=== PATIENT | female | born 1935 | race Caucasian/White ===

== ENCOUNTER 2017-08-05 07:54 | Outpatient (CLI) | payer MEDICARE | END 2017-08-05 07:55 | disposition short-term general hospital (02) | LOC: EMS 07:54 | PROVIDERS: ATTEND Surgery | DX: S01.01XA Laceration without foreign body of scalp, initial encounter (principal); W18.39XA Other fall on same level, initial encounter; Y92.009 Unspecified place in unspecified non-institutional (private) residence as the place of occurrence of the external cause | CPT/HCPCS: A0425; A0429 ==

== ENCOUNTER 2019-02-17 12:41 | Outpatient (CLI) | payer MEDICARE | END 2019-02-17 12:42 | disposition short-term general hospital (02) | LOC: EMS 12:41 | PROVIDERS: ATTEND Surgery | DX: Z04.89 Encounter for examination and observation for other specified reasons (principal); W19.XXXA Unspecified fall, initial encounter; Y92.009 Unspecified place in unspecified non-institutional (private) residence as the place of occurrence of the external cause | CPT/HCPCS: A0425; A0429 ==

== ENCOUNTER 2019-04-11 09:56 | Outpatient (CLI) | payer MEDICARE, MEDICAID ==
--- NOTE | 2019-04-11 15:04 | XRAY Report ---
Reason: FOOT PAIN AND BRUSING/CRUSHING INJURY Procedure Date: 04/11/2019 Accession Number: [id number] / [id number] Procedure: XR - Foot 3 View LT CPT Code: Final Report FULL RESULT: EXAM: LEFT FOOT RADIOGRAPHY EXAM DATE: 04/11/2019 10:34 AM. CLINICAL HISTORY: Persistent left foot pain and bruising after a crush injury 2 weeks prior to this examination. COMPARISON: None. TECHNIQUE: 3 views. FINDINGS: Bones: Decreased bone mineralization. No fractures or bone lesions. Joints: Normal. No subluxations. Soft Tissues: Mild dorsal left forefoot soft tissue swelling. IMPRESSION: 1. Mild dorsal left forefoot soft tissue swelling. 2. Decreased bone mineralization. 3. No fracture or subluxation. RADIA
== END 2019-04-11 09:57 | disposition home or self-care (01) ==
LOC: DI 09:56
PROVIDERS: ATTEND Physician Assistant Medical
DX: M79.672 Pain in left foot (principal)

== ENCOUNTER 2019-04-22 10:34 | Outpatient (CLI) | payer MEDICARE, MEDICAID | END 2019-04-22 10:35 | disposition short-term general hospital (02) | LOC: EMS 10:34 | PROVIDERS: ATTEND Surgery | DX: R11.10 Vomiting, unspecified (principal); W19.XXXA Unspecified fall, initial encounter; Z91.81 History of falling; Y92.009 Unspecified place in unspecified non-institutional (private) residence as the place of occurrence of the external cause | CPT/HCPCS: A0425; A0429; A0888 ==

== ENCOUNTER 2019-09-23 15:37 | Inpatient (IN) | payer MEDICARE, MEDICAID ==
[2019-09-23] MEDS ORDERED: SODIUM CHLORIDE 0.9% 500 ML IV STA (15:50)
--- NOTE | 2019-09-23 15:59 | ED Physician Documentation ---
History of Present Illness - Stated complaint Stated Complaint: FAILURE TO THRIVE - Chief complaint Chief Complaint: General - History obtained from History obtained from: Patient, EMS - Additonal information Additional information: 84-year-old woman with history of atrial fibrillation and dementia presents from a memory care facility with "failure to thrive". Had some sort of surgery last year, she does not know the details. She had a G-tube placed, it is unclear why. The G-tube was removed 10 days ago, she is not sure why. Since then she has not been eating or drinking well. She was admitted to [facility], unclear what happened there, will try to get records. Subsequently now reportedly has not been eating or drinking for 3 days. She complains of nausea when she eats. She says she is still having bowel movements and still urinating. She denies pain. She admits to a cough. Noted to have a temperature of 100.1 for EMS prior to arrival. 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: section HEENT: Tonsil/Adenoidectomy - Present Medications Home Medications: Ambulatory Orders Medication Instructions Recorded Confirmed Alendronate Sodium 70 mg PO ONCE 06/05/19 06/05/19 Calcium Carbonate/Vitamin D3 1 tab PO DAILY 06/05/19 06/05/19 [Calcium 500-Vit D3 200 Tablet] Cranberry Fruit Extract [Cranberry] 1 cap PO DAILY 06/05/19 09/23/19 Docusate Sodium 1 cap PO DAILY 06/05/19 09/23/19 Ferrous Gluconate 324 mg PO DAILY 06/05/19 06/05/19 Flaxseed Oil 1 cap PO DAILY 06/05/19 09/23/19 Furosemide [Lasix] 1 tab PO DAILY PRN 06/05/19 09/23/19 Latanoprost 0.005% Ophth Drops 1 drops RIGHTEYE QPM 06/05/19 06/05/19 [Xalatan Ophth Drops] Lovastatin 40 mg PO DAILY 06/05/19 06/05/19 Metoprolol Tartrate 25 mg PO BID 06/05/19 09/23/19 Multivitamin [Multivitamins] 1 cap PO DAILY 06/05/19 09/23/19 Niacin 1 cap PO DAILY 06/05/19 06/05/19 [place]-3S/Dha/Epa/Fish Oil [Fish 1 cap PO DAILY 06/05/19 09/23/19 Oil 1,200 mg Softgel] Oxycodone HCl 5 mg PO Q4HR PRN 06/05/19 06/05/19 Psyllium Husk [Fiber] 500 mg PO BID 06/05/19 09/23/19 Quetiapine Fumarate 1 tab PO DAILY 06/05/19 09/23/19 Sertraline HCl 200 mg PO DAILY 06/05/19 09/23/19 Acetaminophen [Tylenol] 650 mg PO Q6HR PRN 09/23/19 09/23/19 Aspirin [Aspirin EC] 81 mg PO DAILY 09/23/19 09/23/19 Omeprazole 20 mg PO DAILY 09/23/19 09/23/19 Ondansetron HCl [Zofran] 4 mg PO Q6HR PRN 09/23/19 09/23/19 - Allergies Allergies/Adverse Reactions: Allergies Allergy/AdvReac Type Severity Reaction Status Date / Time No Known Drug Allergies Allergy Verified 09/23/19 15:43 - Social History Does the pt smoke?: No Smoking Status: Never smoker Does the pt drink ETOH?: Yes Does the pt have substance abuse?: No - Immunizations Immunizations are current?: Yes PD ED PE NORMAL - Vitals Vital signs reviewed: Yes - General General: Other (She is alert and oriented to person and place, not time or events.) - HEENT HEENT: PERRL, EOMI - Neck Neck: Supple, no meningeal sign, No bony TTP - Cardiac Cardiac: Other (Rapid and irregular without murmur) - Respiratory Respiratory: No respiratory distress, Other (Diminished at the left base and rhonchi at the right base) - Abdomen Abdomen: Normal bowel sounds, Soft, Other (Healed over G-tube and laparotomy sca rs without tenderness.) - Back Back: No CVA TTP, No spinal TTP - Derm Derm: Normal color, Warm and dry - Extremities Extremities: No edema, No calf tenderness / cord - Neuro 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 2-12 intact Eye Opening: Spontaneous Motor: Obeys Commands Verbal: Confused GCS Score: 14 Results - Vitals Vitals: Vital Signs - 24 hr 09/23/19 09/23/19 09/23/19 15:43 16:00 16:30 Temperature 37.3 C Heart Rate 120 H 125 H 118 H Respiratory 20 21 19 Rate Blood Pressure 114/89 H 118/82 H 115/70 O2 Saturation 97 98 98 09/23/19 09/23/19 09/23/19 17:00 17:15 19:19 Temperature Heart Rate 120 H 84 112 H Respiratory 22 20 18 Rate Blood Pressure 96/62 135/83 H O2 Saturation 92 97 96 09/23/19 19:52 Temperature Heart Rate 89 Respiratory 20 Rate Blood Pressure 100/62 O2 Saturation 96 Oxygen O2 Source Room air - EKG (time done) 1556 Rate: Rate (enter#) (125) Rhythm: Atrial fibrillation (w PVC) [place]: Normal QRS: Low voltage Ischemia: Non specific changes Computer interpretation: Agree with computer - Labs Labs: Laboratory Tests 09/23/19 09/23/19 09/23/19 16:09 16:09 16:09 WBC 40.3 H* RBC 2.92 L Hgb 7.9 L Hct 26.1 L MCV 89.4 MCH 27.1 MCHC 30.3 L RDW 16.1 H Plt Count 233 MPV 10.1 Neut # (Auto) 9.4 H Lymph # (Auto) 30.2 H [place] # (Auto) 0.4 Eos # (Auto) 0.0 Baso # (Auto) 0.0 Absolute Nucleated RBC 0.00 Band Neuts % (Manual) Not Reportable Abnorm Lymph % (Manual) Not Reportable Nucleated RBC % 0.0 Neutrophils # (Manual) Not Reportable Lymphocytes # (Manual) Not Reportable Monocytes # (Manual) Not Reportable Eosinophils # (Manual) Not Reportable Basophils # (Manual) Not Reportable Differential Comment MANUAL=AUTO DIFF Manual Slide Review Indicated WBC Morphology 1+ SMUDGE CELLS Platelet Estimate NORMAL (130-450,000) Platelet Morphology NORMAL APPEARANCE RBC Morph Micro Appear 1+ BASO STIPPLING PT 17.3 H INR 1.6 H Sodium 140 Potassium 3.3 L Chloride 107 Carbon Dioxide 24 Anion Gap 9.0 BUN 19 Creatinine 0.5 Estimated GFR (MDRD) 117 Glucose 194 H Lactic Acid Calcium 7.7 L Phosphorus 3.3 Magnesium 1.8 Total Bilirubin 0.5 AST 18 ALT 13 Alkaline Phosphatase 58 Total Creatine Kinase 29 Troponin I High Sens B-Natriuretic Peptide Total Protein 5.1 L Albumin 2.8 L Globulin 2.3 Albumin/Globulin Ratio 1.2 Lipase 23 Urine Color Urine Clarity Urine pH Ur Specific [place] Urine Protein Urine Glucose (UA) Urine Ketones Urine Occult Blood Urine Nitrite Urine Bilirubin Urine Urobilinogen Ur Leukocyte Esterase Urine RBC Urine WBC Ur Squamous Epith Cells Urine Bacteria Ur Microscopic Review Urine Culture Comments 09/23/19 09/23/19 09/23/19 16:09 16:09 16:09 WBC RBC Hgb Hct MCV MCH MCHC RDW Plt Count MPV Neut # (Auto) Lymph # (Auto) [place] # (Auto) Eos # (Auto) Baso # (Auto) Absolute Nucleated RBC Band Neuts % (Manual) Abnorm Lymph % (Manual) Nucleated RBC % Neutrophils # (Manual) Lymphocytes # (Manual) Monocytes # (Manual) Eosinophils # (Manual) Basophils # (Manual) Differential Comment Manual Slide Review WBC Morphology Platelet Estimate Platelet Morphology RBC Morph Micro Appear PT INR Sodium Potassium Chloride Carbon Dioxide Anion Gap BUN Creatinine Estimated GFR (MDRD) Glucose Lactic Acid 1.5 Calcium Phosphorus Magnesium Total Bilirubin AST ALT Alkaline Phosphatase Total Creatine Kinase Troponin I High Sens 38.2 H* B-Natriuretic Peptide 503 H Total Protein Albumin Globulin Albumin/Globulin Ratio Lipase Urine Color Urine Clarity Urine pH Ur Specific [place] Urine Protein Urine Glucose (UA) Urine Ketones Urine Occult Blood Urine Nitrite Urine Bilirubin Urine Urobilinogen Ur Leukocyte Esterase Urine RBC Urine WBC Ur Squamous Epith Cells Urine Bacteria Ur Microscopic Review Urine Culture Comments 09/23/19 16:50 WBC RBC Hgb Hct MCV MCH MCHC RDW Plt Count MPV Neut # (Auto) Lymph # (Auto) [place] # (Auto) Eos # (Auto) Baso # (Auto) Absolute Nucleated RBC Band Neuts % (Manual) Abnorm Lymph % (Manual) Nucleated RBC % Neutrophils # (Manual) Lymphocytes # (Manual) Monocytes # (Manual) Eosinophils # (Manual) Basophils # (Manual) Differential Comment Manual Slide Review WBC Morphology Platelet Estimate Platelet Morphology RBC Morph Micro Appear PT INR Sodium Potassium Chloride Carbon Dioxide Anion Gap BUN Creatinine Estimated GFR (MDRD) Glucose Lactic Acid Calcium Phosphorus Magnesium Total Bilirubin AST ALT Alkaline Phosphatase Total Creatine Kinase Troponin I High Sens B-Natriuretic Peptide Total Protein Albumin Globulin Albumin/Globulin Ratio Lipase Urine Color YELLOW Urine Clarity HAZY Urine pH 6.0 Ur Specific [place] 1.025 Urine Protein NEGATIVE Urine Glucose (UA) NEGATIVE Urine Ketones 15 H Urine Occult Blood NEGATIVE Urine Nitrite NEGATIVE Urine Bilirubin NEGATIVE Urine Urobilinogen 1 (NORMAL) Ur Leukocyte Esterase NEGATIVE Urine RBC 0-5 Urine WBC 6-10 H Ur Squamous Epith Cells MANY Squamous H Urine Bacteria Many H Ur Microscopic Review INDICATED Urine Culture Comments NOT INDICATED - Rads (name of study) CT A/P Radiology: EMP read contemporaneously (Prominent stool especially in the rectum, cystic foci in the head of the pancreas up to 1.7 cm, consider further imaging, small bilateral pleural effusions with overlying atelectasis.) PD MEDICAL DECISION MAKING - ED course ED course: I left a voicemail for her daughter on both numbers that were available, they were not immediately returned. Discharge summary from [facility] dated 3 days ago, September 18 was reviewed. She was admitted on September 18 and discharged on the . She has a history of hypertension hyperlipidemia dementia hydrocephalus and CLL not currently under treatment, paroxysmal atrial fibrillation and gait disturbance. She presented to the ED because of a heart rate of 143. The surgery necessitating the G-tube was a paraesophageal hernia repair. She is lost 30 pounds in last 6 months. She was admitted to the ICU with rapid atrial fibrillation. She had a positive urine culture but was felt to be asymptomatic bacteriuria. Spoke with her daughter, She is available at [phone]. 84-year-old woman presents with persistent vomiting, about 8 weeks out from a paraesophageal hernia repair. Work-up here demonstrates A. fib with RVR and a fecal impaction. Attempts at disimpaction were made with several enemas in the department without significant success. A. fib was treated with divided doses of diltiazem with borderline rate control. Dr. Salazar will observe. Departure - Departure Disposition: ED Place in Observation Clinical Impression: Fecal impaction, Atrial fibrillation with RVR Vomiting Qualifiers: Vomiting type: unspecified Vomiting Intractability: intractable Nausea presence: with nausea Qualified Code(s): R11.2 - Nausea with vomiting, unspecified Condition: Fair
[2019-09-23] MEDS ORDERED: DILTIAZEM 50 MG/10 ML VIAL IVP STA (16:20)
[2019-09-23 16:23] LABS: BASOPHILS % (AUTO) 0.1 %; HGB - HEMOGLOBIN 7.9 g/dL (12.0-16.0); LYMPHOCYTES # (AUTO) 30.2 10^3/uL (1.5-3.5); LYMPHOCYTES % (AUTO) 74.8 %; MEAN CORPUSCULAR HEMOGLOBIN 27.1 pg (27.0-31.0); MEAN CORPUSCULAR HGB CONC 30.3 g/dL (32.0-36.0); MEAN CORPUSCULAR VOLUME 89.4 fL (81.0-99.0); MEAN PLATELET VOLUME 10.1 fL (7.9-10.8); MONOCYTES # (AUTO) 0.4 10^3/uL (0.0-1.0); NEUTROPHILS # (AUTO) 9.4 10^3/uL (1.5-6.6); NEUTROPHILS % (AUTO) 23.3 %; PLT - PLATELET COUNT 233 10^3/uL (130-450); RED BLOOD COUNT 2.92 10^6/uL (4.20-5.40); RED CELL DISTRIBUTION WIDTH 16.1 % (12.0-15.0)
--- NOTE | 2019-09-23 16:25 | XRAY Report ---
PROCEDURE: Chest 1 View X-Ray INDICATIONS: cough TECHNIQUE: One view of the chest was acquired. COMPARISON: 01/11/2015, 06/05/2013. Correlation is also made with chest CT 04/30/2013 FINDINGS: Surgical changes and devices: Thoracolumbar fixation hardware is seen. Lungs and pleura: No pleural effusions or pneumothorax. Lungs are clear. Mediastinum: The aorta is prominent and tortuous. The cardiac contours are within normal limits. Bones and chest wall: No suspicious bony lesions. Age-appropriate degenerative changes are seen. Overlying soft tissues appear unremarkable. IMPRESSION: No focal infiltrates are seen. Thoracolumbar fixation hardware. Reviewed by: Bin Arroyo MD on 09/23/2019 3:23 PM AKDT Approved by: Bin Arroyo MD on 09/23/2019 3:23 PM AKDT Station ID: [id number]
[2019-09-23 16:31] LABS: WHITE BLOOD COUNT 40.3 x10^3/uL (4.8-10.8)
[2019-09-23 16:32] LABS: INR 1.6 (0.8-1.2); PT - PROTHROMBIN TIME 17.3 secs (9.9-12.6)
[2019-09-23 16:36] LABS: ALBUMIN 2.8 g/dL (3.2-5.5); ALBUMIN/GLOBULIN RATIO 1.2 (1.0-2.2); BILIRUBIN,TOTAL 0.5 mg/dL (0.2-1.0); CALCIUM 7.7 mg/dL (8.5-10.3); CREATININE 0.5 mg/dL (0.4-1.0); MAGNESIUM 1.8 mg/dL (1.7-2.8); PHOSPHORUS 3.3 mg/dL (2.5-4.6); TOTAL PROTEIN 5.1 g/dL (6.7-8.2)
[2019-09-23 16:57] LABS: DIFFERENTIAL COMMENT MANUAL=AUTO DIFF; PLATELET ESTIMATE, MANUAL NORMAL (130-450,000) (NORMAL); PLATELET MORPHOLOGY NORMAL APPEARANCE (NORMAL)
[2019-09-23] MEDS ORDERED: ASPIRIN CHEW 81 MG TABLET PO STA (17:03)
[2019-09-23 17:05] LABS: BILIRUBIN,URINE NEGATIVE (NEGATIVE); GLUCOSE, URINE (UA) NEGATIVE (NEGATIVE); KETONES,URINE (UA) 15 mg/dL (NEGATIVE); LEUKOCYTE ESTERASE, URINE NEGATIVE (NEGATIVE); NITRITE,URINE NEGATIVE (NEGATIVE); OCCULT BLOOD,URINE NEGATIVE (NEGATIVE); PROTEIN,URINE NEGATIVE (NEGATIVE); UROBILINOGEN,URINE 1 (NORMAL) E.U./dL (NORMAL)
[2019-09-23 17:13] LABS: CLARITY,URINE HAZY (CLEAR)
[2019-09-23 17:14] LABS: BACTERIA,URINE Many /HPF (None Seen); RBC,URINE 0-5 /HPF (0-5); SQUAMOUS EPITHELIAL CELL,UR MANY Squamous (<= Few)
[2019-09-23] MEDS ORDERED: IOVERSOL 320 100 ML VIAL IVP ONE ×2 (17:17→17:37)
--- NOTE | 2019-09-23 17:46 | CT Report ---
PROCEDURE: Abdomen/Pelvis W INDICATIONS: IV only, vomiting, post op CONTRAST: IV CONTRAST: Optiray 320 ml: 100 PO CONTRAST: *NO PO CONTRAST TECHNIQUE: After the administration of oral and intravenous contrast, 5 mm thick sections acquired from the diap hragms to the symphysis. 5 mm thick coronal and sagittal reformats were acquired. For radiation dos e reduction, the following was used: automated exposure control, adjustment of mA and/or kV accordin g to patient size. COMPARISON: No prior CTs of the abdomen and pelvis are available for review at the time of this dict ation. FINDINGS: Image quality: Excellent. ABDOMEN: Lung bases: Small bilateral pleural effusions are seen. There is a large ventral hernia seen, which s tomach. Mild dependent atelectasis is seen. The heart size is within normal limits. Solid organs: Liver and spleen are normal. A low-density lesion is seen within the left liver, as o n series 3 image 15 measuring 1 cm. Gallbladder was not appear thickened. Biliary system is non dila carmen. Cystic foci are seen within the head of the pancreas that measure up to 1.7 cm, as on series 3 image 25. No adrenal nodules. Kidneys demonstrate normal size and enhancement, without hydronephrosis. Peritoneum and bowel: A prominent amount of stool seen within the distal colon, with the rectal wall measuring nearly 10 cm transversely. Bowel loops demonstrate normal wall thickness and caliber. No free fluid or air. Nodes and vessels: No retroperitoneal or mesenteric adenopathy by size criteria. Aorta and inferior vena cava are normal in size. Miscellaneous: No ventral hernias. PELVIS: Genitourinary: Bladder wall thickness is normal. Miscellaneous: No inguinal hernias or adenopathy. Bones: No suspicious bony lesions. Thoracotomy lumbar fixation hardware is partially seen. Numerous levels of chronic appearing anterior wedge deformity can be seen, without daja acute features. Dext roconvex lumbar sclerotic curvature is seen. IMPRESSION: There is a prominent amount of stool seen within the rectum. Early fecal impaction is cadena spected. Cystic foci can be seen of the head of the pancreas, which measure up to 1.7 cm. Differential diagnos is includes benign cysts and cystic neoplasm. If clinically appropriate, please consider further work up with a scheduled pancreas protocol CT or pancreas protocol MRI (assuming that there is no contrain dication). Small bilateral pleural effusions, with overlying atelectasis. Incidental note is made of: Large hiatal hernia 1 cm cyst or hemangioma seen within the left lobe of the liver. Numerous spinal compression deformities, without acute features Thoracolumbar fixation hardware Reviewed by: Bin Arroyo MD on 09/23/2019 4:45 PM AKDT Approved by: Bin Arroyo MD on 09/23/2019 4:45 PM AKDT Station ID: [id number]
[2019-09-23] MEDS ORDERED: DILTIAZEM 50 MG/10 ML VIAL IVP ONE (19:10)
[2019-09-23] MEDS ORDERED: ONDANSETRON 4 MG/2 ML VIAL IVP PRN (20:12)
--- NOTE | 2019-09-23 20:25 | HISTORY & PHYSICAL EXAMINATION ---
Chief Complaint - Chief Complaint Chief Complaint: dyspnea History of Present Illness - Admitted From Admitted From:: [facility] ED - History Obtained From Records Reviewed: yes History obtained from: ED physician and patient's daughter Exam Limitations: dementia - History of Present Illness HPI Comment/Other: Patient is an 84-year-old female with Past medical history including atrial fibrillation, CLL and dementia [facility] Her daughter was at bedside and help with some of the history. She reports that the staff at [facility] reported that the patient suddenly became pale, was coug amadeo and dyspneic. They were concerned that something was wrong with her heart and called EMS to bring her to the ED. In the ED she was found to be in atrial fibrillation with rapid ventricular rhythm and heart rate as high as 125.Work-up included a chest x-ray which was unremarkable except for thoracolumbar fixation hardware. A CT of the abdomen pelvis was also done which showed a prominent amou nt of stool within the rectum for which early fecal impaction was suspected. Patient's white blood cell count was also 40. She was given 10 mg of diltiazem IV twice which initially improved her heart rate to the 80s. However as time went by her heart rate steadily increased to the 110's. It mainly fluctuated between 100 and 130s. She also had several attempts at disimpaction and was finally administered an enema. As a result of the laboratory findings and her clinical presentation she was pre sented for admission for further treatment. Upon arrival to bedside the patient was resting comfortably. She is hard of hearing but denied any abdominal pain, dyspnea, chest pain. She was slightly n auseous. She has not eaten in days as a result of the nausea. The patient was just discharged from [facility] on September 21, 2019 for an episode of atrial fibrillation with RVR during Which she was admitted to the ICU on a diltiazem drip. 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 Social History Notes: Patient does not smoke. However she is a former smoker. She does not use alcohol or illicit drug products. She resides at [facility] - POLST Patient has POLST: No POLST Status: Limited Interventions (DNI) Meds/Allgy - Home Medications Home Medications: Ambulatory Orders Medication Instructions Recorded Confirmed Alendronate Sodium 70 mg PO ONCE 06/05/19 06/05/19 Calcium Carbonate/Vitamin D3 1 tab PO DAILY 06/05/19 06/05/19 [Calcium 500-Vit D3 200 Tablet] Cranberry Fruit Extract [Cranberry] 1 cap PO DAILY 06/05/19 09/23/19 Docusate Sodium 1 cap PO DAILY 06/05/19 09/23/19 Ferrous Gluconate 324 mg PO DAILY 06/05/19 06/05/19 Flaxseed Oil 1 cap PO DAILY 06/05/19 09/23/19 Furosemide [Lasix] 1 tab PO DAILY PRN 06/05/19 09/23/19 Latanoprost 0.005% Ophth Drops 1 drops RIGHTEYE QPM 06/05/19 06/05/19 [Xalatan Ophth Drops] Lovastatin 40 mg PO DAILY 06/05/19 06/05/19 Metoprolol Tartrate 25 mg PO BID 06/05/19 09/23/19 Multivitamin [Multivitamins] 1 cap PO DAILY 06/05/19 09/23/19 Niacin 1 cap PO DAILY 06/05/19 06/05/19 [place]-3S/Dha/Epa/Fish Oil [Fish 1 cap PO DAILY 06/05/19 09/23/19 Oil 1,200 mg Softgel] Oxycodone HCl 5 mg PO Q4HR PRN 06/05/19 06/05/19 Psyllium Husk [Fiber] 500 mg PO BID 06/05/19 09/23/19 Quetiapine Fumarate 1 tab PO DAILY 06/05/19 09/23/19 Sertraline HCl 200 mg PO DAILY 06/05/19 09/23/19 Acetaminophen [Tylenol] 650 mg PO Q6HR PRN 09/23/19 09/23/19 Aspirin [Aspirin EC] 81 mg PO DAILY 09/23/19 09/23/19 Omeprazole 20 mg PO DAILY 09/23/19 09/23/19 Ondansetron HCl [Zofran] 4 mg PO Q6HR PRN 09/23/19 09/23/19 - Allergies Allergies/Adverse Reactions: Allergies Allergy/AdvReac Type Severity Reaction Status Date / Time No Known Drug Allergies Allergy Verified 09/23/19 15:43 Review of Systems - Constitutional Constitutional: reports: Weakness, Poor appetite. denies: Fatigue, Fever - Eyes Eyes: denies: Pain - Ears, Nose & Throat Ears, Nose & Throat: reports: Hearing loss - Cardiovascular Cariovascular: reports: Irregular heart rate, Edema (right lower extremity greater than left). denies: Chest pain - Gastrointestinal Gastrointestinal: reports: Constipation, Nausea, Poor appetite. denies: Abdominal distention - Genitourinary Genitourinary: denies: Dysuria - Musculoskeletal Musculoskeletal: denies: Muscle pain, Back pain - Integumentary Integumentary: denies: Rash, Pruritis, Lesions - Neurological Neurological: reports: Memory problems. denies: Focal weakness - Psychiatric Psychiatric: denies: Depression, Anxiety - Endocrine Endocrine: denies: Polyuria, Polydypsia - Hematologic/Lymphatic Hematologic/Lymphatic: denies: Anemia, Bruising Prior Level of Functionality: Patient has been living at [facility] for the past 3 weeks. Exam - Vital Signs Vital Signs: Vital Signs x48h Temp Pulse Resp BP Pulse Ox 09/23/19 19:52 89 20 100/62 96 09/23/19 19:19 112 H 18 135/83 H 96 09/23/19 17:15 84 20 97 09/23/19 17:00 120 H 22 96/62 92 09/23/19 16:30 118 H 19 115/70 98 09/23/19 16:00 125 H 21 118/82 H 98 09/23/19 15:43 37.3 C 120 H 20 114/89 H 97 - Physical Exam General Appearance: positive: No acute distress, Alert Eyes Bilateral: positive: PERRL, EOMI ENT: positive: No signs of dehydration Neck: positive: No JVD, Trachea midline Respiratory: positive: Chest non-tender, No respiratory distress, Breath sounds nml. negative: Wheezes, Rales, Rhonchi Cardiovascular: positive: Irregularly irregular, Tachycardia Abdomen: positive: Non-tender, Nml bowel sounds, No distention. negative: Guarding, Rebound Back: positive: Nml inspection Skin: positive: Color nml, No rash, Warm, Dry Extremities: positive: Pedal edema (right> left. +1) Neurologic/Psychiatric: positive: Oriented x3, Mood/affect nml Conclusion/Plan - Problem List (1) Atrial fibrillation with RVR Conclusion/Plan: Patient was given diltiazem 10 mg IV twice in the ED. Heart rate initially improved to 86 but slowly increased to the 110s. She is fluctuating between 100 and 125. Diltiazem 30 mg immediate release every 6 hours p.o. has been ordered. Patient is also on metoprolol tartrate 25 mg p.o. twice daily. We will continue Patient is only on a baby aspirin daily. Reason for no oral anticoagulation is unknown at the moment. However this is likely due to the fact that the patient has some gait abnormalities. It is unclear if an echocardiogram was done at the most recent hospital stay in [facility]. Will attempt to get records from [facility] (2) Fecal impaction Conclusion/Plan: Status post attempts at disimpaction and enema. Some success was achieved. Patient reported a bowel movement in the ED. We will continue MiraLAX daily. (3) Hyperlipidemia Conclusion/Plan: Patient is on lovastatin at home. Will order the equivalent on formulary once medications verified by pharmacy. Patient also takes flaxseed oil and omega-3 fatty acids. (4) CLL (chronic lymphocytic leukemia) Conclusion/Plan: This was diagnosed 11 years ago. Patient had been seeing Dr. Medellin for oncology. No treatment had been done because the patient was stable. As a result of her stability she was actually discharged by [facility] WBC today was 40. (5) Hypertension Conclusion/Plan: Patient is on metoprolol and Lasix. (6) Osteoporosis Conclusion/Plan: Patient is on calcium carbonate 500 mg p.o. daily, and vitamin D3 She has been on alendronate in the past. - Lab Results Fish Bones: 09/23/19 16:09 09/23/19 16:09 Core Measures - Anticipated LOS I expect patient to be DC'd or transferred within 96 hours.: Yes - DVT/VTE - Prophylaxis VTE/DVT Device ordered at admit?: Yes VTE/DVT Prophylaxis med ordered at admit?: Yes
[2019-09-23] MEDS: SODIUM CHLORIDE 0.9% 1,000 ML IV SCH (21:52)
[2019-09-23] MEDS: SODIUM CHLORIDE FLUSH 0.9% 10 ML SYRINGE IVP PRN (21:52)
[2019-09-24] MEDS: METOPROLOL TARTRATE 25 MG TABLET PO SCH ×3 (00:11→21:24)
[2019-09-24] MEDS: polyethylene glycoL 3350 17 GM PACKET PO SCH ×2 (00:12→09:22)
[2019-09-24] MEDS: diltiaZEM 30 MG TABLET PO SCH ×4 (00:28→18:39)
[2019-09-24] MEDS ORDERED: DILTIAZEM 50 MG/10 ML VIAL IVP ONE (02:00)
[2019-09-24 05:45] LABS: BASOPHILS % (AUTO) 0.1 %; EOSINOPHILS % (AUTO) 0.1 %; HGB - HEMOGLOBIN 7.1 g/dL (12.0-16.0); LYMPHOCYTES % (AUTO) 75.4 %; MEAN CORPUSCULAR HEMOGLOBIN 26.6 pg (27.0-31.0); MEAN CORPUSCULAR VOLUME 88.8 fL (81.0-99.0); MONOCYTES # (AUTO) 0.4 10^3/uL (0.0-1.0); MONOCYTES % (AUTO) 1.1 %; NEUTROPHILS # (AUTO) 8.2 10^3/uL (1.5-6.6); NEUTROPHILS % (AUTO) 22.8 %; PLT - PLATELET COUNT 219 10^3/uL (130-450); RED BLOOD COUNT 2.67 10^6/uL (4.20-5.40)
[2019-09-24 05:47] LABS: WHITE BLOOD COUNT 35.7 x10^3/uL (4.8-10.8)
[2019-09-24 05:59] LABS: CREATININE 0.5 mg/dL (0.4-1.0)
[2019-09-24 06:04] LABS: CALCIUM 7.7 mg/dL (8.5-10.3)
[2019-09-24 06:08] LABS: PLATELET ESTIMATE, MANUAL NORMAL (130-450,000) (NORMAL); PLATELET MORPHOLOGY NORMAL APPEARANCE (NORMAL); RBC MORPHOLOGY (MULTIPLE) 2+ HYPOCHROMASIA (NORMAL)
[2019-09-24] MEDS: SODIUM CHLORIDE FLUSH 0.9% 10 ML SYRINGE IVP SCH ×2 (06:40→18:41)
[2019-09-24] MEDS: SODIUM CHLORIDE 0.9% 1,000 ML IV SCH ×3 (06:41→21:24)
[2019-09-24] MEDS: POTASSIUM CHLORIDE 20 MEQ/15 ML UDC PO SCH (09:21)
--- NOTE | 2019-09-24 14:36 | PROVIDER PROGRESS NOTE ---
Assessment/Plan - Problem List (1) Atrial fibrillation with RVR Assessment/Plan: The heart rate has improved to 80s to 90s on her p.o. Cardizem every 6 hours. We will switch to Cardizem CD. Presumably she is not on an anticoagulant because of her mild dementia and poor gait. We have a discharge summary from [facility], it does not address the exact reason for no anticoagulation. She is ruled out for an IN as the cause of the RVR. Plan is to get an echo unless we can have report of an echo from [facility]. We have put in a request to get that Echo. (2) SOB (shortness of breath) Assessment/Plan: Records from [facility] were requested, regarding her recent admission there, as to whether an Echo was done during that hospitalization, because she was there for A. fib with RVR. There was no description of an Echo in their discharge summary, which we do have. We have not been able to get an Echo result from [facility]. The patient will be admitted to full inpatient status under the 24-hour rule, since we have been unable to get her records regarding an Echo, and results of an Echo would alter her medical management. (3) Fecal impaction Assessment/Plan: Status post attempts at disimpaction and enema. Some success was achieved. Patient reported a bowel movement as she arrived to her hospital room last night. We will continue MiraLAX daily. (4) CLL (chronic lymphocytic leukemia) Assessment/Plan: This was diagnosed 11 years ago. Patient had been seeing Dr. Medellin for oncology. No treatment had been done because the patient was stable. As a result of her stability she was actually discharged by Dr. Medellin from oncologic care WBC today was 40>> 37. (5) Hyperlipidemia Assessment/Plan: Patient is on lovastatin at home. Will order the equivalent on formulary once medications verified by pharmacy. Patient also takes flaxseed oil and omega-3 fatty acids. (6) Hypertension Assessment/Plan: Patient is on metoprolol and Lasix. Continue these. (7) Osteoporosis Assessment/Plan: Patient is on calcium carbonate 500 mg p.o. daily, and vitamin D3. She has been on alendronate in the past. - Current Meds Current Meds: Current Medications Generic Name Dose Route Start Last Admin Trade Name Freq PRN Reason Stop Dose Admin Diltiazem HCl 30 mg 09/23/19 00:00 09/24/19 13:06 Cardizem PO 30 mg Q6HR AMANDO Administration Sodium Chloride 1,000 mls @ 125 mls/hr 09/23/19 21:00 09/24/19 13:00 Normal Saline 0.9% IV 125 mls/hr .Q8H AMANDO Administration Metoprolol Tartrate 25 mg 09/23/19 23:00 09/24/19 09:18 Lopressor PO 25 mg BID AMANDO Administration Polyethylene Glycol 17 gm 09/23/19 22:23 09/24/19 09:22 Miralax PO 17 gm DAILY AMANDO Administration Potassium Chloride 20 meq 09/24/19 08:00 09/24/19 09:21 PO 20 meq DAILYWM AMANDO Administration Sodium Chloride 10 ml 09/23/19 20:12 09/23/19 21:52 Normal Saline Flush 0.9% IVP 10 ml PRN PRN Administration NEEDED PER PROVIDER ORDERS Sodium Chloride 10 ml 09/24/19 01:00 09/24/19 06:40 Normal Saline Flush 0.9% IVP Not Given 0100,0900,1700 AMANDO - Lab Result Fish Bone Diagrams: 09/24/19 05:30 09/24/19 05:30 - Additional Planning My Orders: My Active Orders 09/24/19 12:00 COVID-19 REFERENCE TEST Routine 09/24/19 14:31 Admit [Admit \ Transfer \ Status] [RC] .ONCE Subjective - Subjective Patient Reports: Shortness of Breath Objective Vital Signs: Vital Signs - 24 hr 09/23/19 09/23/19 09/23/19 15:43 16:00 16:30 Temperature 37.3 C Heart Rate 120 H 125 H 118 H Heart Rate [ Monitoring electrodes] Respiratory 20 21 19 Rate Blood Pressure 114/89 H 118/82 H 115/70 Blood Pressure [Right Brachial artery] O2 Saturation 97 98 98 09/23/19 09/23/19 09/23/19 17:00 17:15 19:19 Temperature Heart Rate 120 H 84 112 H Heart Rate [ Monitoring electrodes] Respiratory 22 20 18 Rate Blood Pressure 96/62 135/83 H Blood Pressure [Right Brachial artery] O2 Saturation 92 97 96 09/23/19 09/23/19 09/23/19 19:52 21:08 21:09 Temperature Heart Rate 89 113 H 111 H Heart Rate [ Monitoring electrodes] Respiratory 20 18 17 Rate Blood Pressure 100/62 124/83 H 130/96 H Blood Pressure [Right Brachial artery] O2 Saturation 96 97 98 09/23/19 09/23/19 09/24/19 21:45 23:30 00:00 Temperature 37.1 C 37.1 C 36.6 C Heart Rate 92 Heart Rate [ 92 120 H Monitoring electrodes] Respiratory 18 18 18 Rate Blood Pressure Blood Pressure 137/78 H 141/82 H [Right Brachial artery] O2 Saturation 96 96 100 09/24/19 09/24/19 09/24/19 00:11 00:28 02:50 Temperature Heart Rate Heart Rate [ 92 Monitoring electrodes] Respiratory Rate Blood Pressure 141/82 H 141/82 H Blood Pressure [Right Brachial artery] O2 Saturation 09/24/19 09/24/19 09/24/19 05:00 06:37 09:18 Temperature 37.3 C Heart Rate Heart Rate [ 89 Monitoring electrodes] Respiratory 18 Rate Blood Pressure 134/71 H 117/58 L Blood Pressure 137/75 H [Right Brachial artery] O2 Saturation 97 09/24/19 09/24/19 10:00 13:06 Temperature 36.8 C Heart Rate Heart Rate [ 88 Monitoring electrodes] Respiratory 19 Rate Blood Pressure 137/75 H Blood Pressure 129/78 [Right Brachial artery] O2 Saturation 100 Oxygen O2 Source Room air I&O (Last 24 Hrs): Intake and Output Totals x24h 09/22/19 09/23/19 09/24/19 23:59 23:59 23:59 Intake Total 500 2149.583 Output Total 175 Balance 500 1974.583 General: Alert HEENT: EOMI, Mucous membr. moist/pink Neck: Supple, No JVD Neuro: Alert, Other (Confused.) Cardiovascular: Other (Irreg) Respiratory: Rales Abdomen: Soft Extremities: No edema - Results Results: Laboratory Results WBC 35.7 x10^3/uL (4.8-10.8) H* 09/24/19 05:30 RBC 2.67 10^6/uL (4.20-5.40) L 09/24/19 05:30 Hgb 7.1 g/dL (12.0-16.0) L 09/24/19 05:30 Hct 23.7 % (37.0-47.0) L 09/24/19 05:30 MCV 88.8 fL (81.0-99.0) 09/24/19 05:30 MCH 26.6 pg (27.0-31.0) L 09/24/19 05:30 MCHC 30.0 g/dL (32.0-36.0) L 09/24/19 05:30 RDW 16.0 % (12.0-15.0) H 09/24/19 05:30 Plt Count 219 10^3/uL (130-450) 09/24/19 05:30 MPV 10.0 fL (7.9-10.8) 09/24/19 05:30 Neut # (Auto) 8.2 10^3/uL (1.5-6.6) H 09/24/19 05:30 Lymph # (Auto) 27.0 10^3/uL (1.5-3.5) H 09/24/19 05:30 [place] # (Auto) 0.4 10^3/uL (0.0-1.0) 09/24/19 05:30 Eos # (Auto) 0.0 10^3/uL (0.0-0.7) 09/24/19 05:30 Baso # (Auto) 0.0 10^3/uL (0.0-0.1) 09/24/19 05:30 Absolute Nucleated RBC 0.00 x10^3/uL 09/24/19 05:30 Band Neuts % (Manual) Not Reportable 09/23/19 16:09 Abnorm Lymph % (Manual) Not Reportable 09/23/19 16:09 Nucleated RBC % 0.0 /100WBC 09/24/19 05:30 Neutrophils # (Manual) Not Reportable 09/23/19 16:09 Lymphocytes # (Manual) Not Reportable 09/23/19 16:09 Monocytes # (Manual) Not Reportable 09/23/19 16:09 Eosinophils # (Manual) Not Reportable 09/23/19 16:09 Basophils # (Manual) Not Reportable 09/23/19 16:09 Differential Comment MANUAL=AUTO DIFF 09/23/19 16:09 Manual Slide Review Indicated 09/24/19 05:30 WBC Morphology 1+ SMUDGE CELLS (NORMAL) 09/23/19 16:09 Platelet Estimate NORMAL (130-450,000) (NORMAL) 09/24/19 05:30 Platelet Morphology NORMAL APPEARANCE (NORMAL) 09/24/19 05:30 RBC Morph Micro Appear 2+ HYPOCHROMASIA (NORMAL) 09/24/19 05:30 PT 17.3 secs (9.9-12.6) H 09/23/19 16:09 INR 1.6 (0.8-1.2) H 09/23/19 16:09 Sodium 140 mmol/L (135-145) 09/24/19 05:30 Potassium 3.4 mmol/L (3.5-5.0) L 09/24/19 05:30 Chloride 107 mmol/L (101-111) 09/24/19 05:30 Carbon Dioxide 24 mmol/L (21-32) 09/24/19 05:30 Anion Gap 9.0 (6-13) 09/24/19 05:30 BUN 14 mg/dL (6-20) 09/24/19 05:30 Creatinine 0.5 mg/dL (0.4-1.0) 09/24/19 05:30 Estimated GFR (MDRD) 117 (>89) 09/24/19 05:30 Glucose 153 mg/dL (70-100) H 09/24/19 05:30 Lactic Acid 1.5 mmol/L (0.5-2.2) 09/23/19 16:09 Calcium 7.7 mg/dL (8.5-10.3) L 09/24/19 05:30 Phosphorus 3.3 mg/dL (2.5-4.6) 09/23/19 16:09 Magnesium 1.8 mg/dL (1.7-2.8) 09/23/19 16:09 Total Bilirubin 0.5 mg/dL (0.2-1.0) 09/23/19 16:09 AST 18 IU/L (10-42) 09/23/19 16:09 ALT 13 IU/L (10-60) 09/23/19 16:09 Alkaline Phosphatase 58 IU/L (42-121) 09/23/19 16:09 Total Creatine Kinase 29 IU/L (22-269) 09/23/19 16:09 Troponin I High Sens 38.2 ng/L (2.3-14.8) H* 09/23/19 16:09 B-Natriuretic Peptide 503 pg/mL (5-100) H 09/23/19 16:09 Total Protein 5.1 g/dL (6.7-8.2) L 09/23/19 16:09 Albumin 2.8 g/dL (3.2-5.5) L 09/23/19 16:09 Globulin 2.3 g/dL (2.1-4.2) 09/23/19 16:09 Albumin/Globulin Ratio 1.2 (1.0-2.2) 09/23/19 16:09 Lipase 23 U/L (22-51) 09/23/19 16:09 Urine Color YELLOW 09/23/19 16:50 Urine Clarity HAZY (CLEAR) 09/23/19 16:50 Urine pH 6.0 PH (5.0-7.5) 09/23/19 16:50 Ur Specific [place] 1.025 (1.002-1.030) 09/23/19 16:50 Urine Protein NEGATIVE mg/dL (NEGATIVE) 09/23/19 16:50 Urine Glucose (UA) NEGATIVE mg/dL (NEGATIVE) 09/23/19 16:50 Urine Ketones 15 mg/dL (NEGATIVE) H 09/23/19 16:50 Urine Occult Blood NEGATIVE (NEGATIVE) 09/23/19 16:50 Urine Nitrite NEGATIVE (NEGATIVE) 09/23/19 16:50 Urine Bilirubin NEGATIVE (NEGATIVE) 09/23/19 16:50 Urine Urobilinogen 1 (NORMAL) E.U./dL (NORMAL) 09/23/19 16:50 Ur Leukocyte Esterase NEGATIVE (NEGATIVE) 09/23/19 16:50 Urine RBC 0-5 /HPF (0-5) 09/23/19 16:50 Urine WBC 6-10 /HPF (0-5) H 09/23/19 16:50 Ur Squamous Epith Cells MANY Squamous (<= Few) H 09/23/19 16:50 Urine Bacteria Many /HPF (None Seen) H 09/23/19 16:50 Ur Microscopic Review INDICATED 09/23/19 16:50 Urine Culture Comments NOT INDICATED 09/23/19 16:50 - Procedures Procedures: Procedures CATARAC PHACOEMULS/ASPIR (12/06/13) INSERT LENS AT CATAR EXT (12/06/13)
[2019-09-25] MEDS: SODIUM CHLORIDE FLUSH 0.9% 10 ML SYRINGE IVP SCH ×3 (00:25→15:54)
[2019-09-25] MEDS: diltiaZEM 30 MG TABLET PO SCH ×5 (00:27→20:57)
[2019-09-25] MEDS: SODIUM CHLORIDE 0.9% 1,000 ML IV SCH (05:19)
[2019-09-25 05:43] LABS: BASOPHILS % (AUTO) 0.1 %; EOSINOPHILS % (AUTO) 0.5 %; LYMPHOCYTES % (AUTO) 81.6 %; MEAN CORPUSCULAR HEMOGLOBIN 26.6 pg (27.0-31.0); MEAN CORPUSCULAR HGB CONC 29.4 g/dL (32.0-36.0); MEAN CORPUSCULAR VOLUME 90.6 fL (81.0-99.0); MEAN PLATELET VOLUME 10.2 fL (7.9-10.8); MONOCYTES % (AUTO) 1.5 %; NEUTROPHILS % (AUTO) 15.8 %; PLT - PLATELET COUNT 220 10^3/uL (130-450); RED BLOOD COUNT 2.44 10^6/uL (4.20-5.40); RED CELL DISTRIBUTION WIDTH 16.1 % (12.0-15.0)
[2019-09-25 05:48] LABS: HGB - HEMOGLOBIN 6.5 g/dL (12.0-16.0); WHITE BLOOD COUNT 47.7 x10^3/uL (4.8-10.8)
[2019-09-25 05:49] LABS: ABNORMAL LYMPHS % (MANUAL) 0 %; BAND NEUTROPHILS % (MANUAL) 0 %
[2019-09-25 05:50] LABS: CALCIUM 7.7 mg/dL (8.5-10.3); CREATININE 0.5 mg/dL (0.4-1.0)
[2019-09-25 06:03] LABS: LYMPHOCYTES # (MANUAL) 38.6 10^3/uL (1.5-3.5); LYMPHOCYTES % (MANUAL) 81 %; MONOCYTES # (MANUAL) 0.5 10^3/uL (0.0-1.0)
[2019-09-25 06:04] LABS: DIFFERENTIAL COMMENT MANUAL DIFFERENTIAL; PLATELET ESTIMATE, MANUAL NORMAL (130-450,000) (NORMAL); PLATELET MORPHOLOGY NORMAL APPEARANCE (NORMAL); RBC MORPHOLOGY (MULTIPLE) 2+ HYPOCHROMASIA (NORMAL)
[2019-09-25] MEDS ORDERED: FUROSEMIDE 20 MG/2 ML VIAL IVP PRN (06:40)
[2019-09-25] MEDS ORDERED: ACETAMINOPHEN 325 MG TABLET PO PRN (07:32)
[2019-09-25] MEDS: POTASSIUM CHLORIDE 20 MEQ/15 ML UDC PO SCH ×2 (09:36→12:49)
[2019-09-25] MEDS: METOPROLOL TARTRATE 25 MG TABLET PO SCH ×3 (09:37→20:57)
[2019-09-25] MEDS: DOCUSATE SODIUM 100 MG CAPSULE PO SCH (09:37)
[2019-09-25] MEDS: polyethylene glycoL 3350 17 GM PACKET PO SCH ×2 (09:37→12:49)
[2019-09-25] MEDS: SERTRALINE 50 MG TABLET PO SCH (09:40)
[2019-09-25] MEDS: SODIUM CHLORIDE FLUSH 0.9% 10 ML SYRINGE IVP PRN ×3 (12:32→20:57)
--- NOTE | 2019-09-25 13:56 | PROVIDER PROGRESS NOTE ---
Subjective - Prog Note Date Prog Note Date: 09/25/19 - Subjective Subjective: She reports feeling nauseous this morning. Denies any abdominal pain, chest pain, dyspnea. She reports just not feeling that great overall. She was able to eat breakfast. I discussed blood transfusion given her hemoglobin 6.5 this morning and she is agreeable to this. Current Medications - Current Medications Current Medications: Active Medications Acetaminophen (Tylenol) 650 mg PO Q6H PRN PRN Reason: PAIN Aspirin (Ecotrin) 81 mg PO QPM [facility] Atorvastatin Calcium (Lipitor) 20 mg PO QPM [facility] Diltiazem HCl (Cardizem) 30 mg PO QID [facility] Docusate Sodium (Colace 100mg Capsule) 100 mg PO DAILY [facility] Last Admin: 09/25/19 09:37 Dose: Not Given Documented by: Furosemide (Lasix Inj 20mg Vial) 20 mg IVP ONCE PRN PRN Reason: Between units Stop: 09/26/19 06:39 Metoprolol Tartrate (Lopressor) 25 mg PO BID [facility] Last Admin: 09/25/19 12:43 Dose: 25 mg Documented by: Multivitamins (Theragran) 1 tab PO DAILYWM [facility] Ondansetron HCl (Zofran Inj) 4 mg IVP Q4HR PRN PRN Reason: Nausea / Vomiting Last Admin: 09/25/19 09:35 Dose: 4 mg Documented by: Polyethylene Glycol (Miralax) 17 gm PO DAILY [facility] Last Admin: 09/25/19 12:49 Dose: 17 gm Documented by: Quetiapine Fumarate (Seroquel) 50 mg PO QPM [facility] Sertraline HCl (Zoloft) 200 mg PO DAILY [facility] Last Admin: 09/25/19 09:40 Dose: Not Given Documented by: Sodium Chloride (Normal Saline Flush 0.9%) 10 ml IVP PRN PRN PRN Reason: NEEDED PER PROVIDER ORDERS Last Admin: 09/25/19 12:32 Dose: 10 ml Documented by: Sodium Chloride (Normal Saline Flush 0.9%) 10 ml IVP 0100,0900,1700 [facility] Last Admin: 09/25/19 09:35 Dose: 10 ml Documented by: Alendronate Sodium 70 mg PO Q7D 06/05/19 Docusate Sodium 100 mg PO DAILY 06/05/19 Furosemide [Lasix] 20 mg PO DAILY PRN 06/05/19 Metoprolol Tartrate 25 mg PO BID 06/05/19 Multivitamin [Multivitamins] 1 cap PO DAILY 06/05/19 Quetiapine Fumarate 50 mg PO QPM 06/05/19 Sertraline HCl 200 mg PO DAILY 06/05/19 Acetaminophen [Tylenol] 650 mg PO Q6H PRN 09/23/19 Aspirin [Aspirin EC] 81 mg PO QPM 09/23/19 Omeprazole 20 mg PO DAILY 09/23/19 Ondansetron HCl [Zofran] 4 mg PO Q6HR PRN 09/23/19 Lovastatin 40 mg PO QPM 09/24/19 Psyllium Husk [Metamucil] 1 gm PO BID 09/24/19 Objective - Vital Signs/Intake & Output Reviewed Vital Signs: Yes Vital Signs: Vital Signs x48h Temp Pulse Pulse Resp BP BP Pulse Ox 09/25/19 13:34 112 H 09/25/19 12:50 37.0 C 109 H 24 137/78 H 09/25/19 12:43 137/78 H 09/25/19 12:32 137/78 H 09/25/19 12:00 37.0 C 116 H 16 140/80 H 92 09/25/19 09:40 37.0 C 60 18 142/60 H 09/25/19 09:25 36.6 C 91 18 132/55 H 09/25/19 07:45 36.9 C 99 16 128/90 H 94 Intake & Output: Intake & Output 09/22/19 09/23/19 09/24/19 09/25/19 23:59 23:59 23:59 23:59 Intake Total 500 3389.583 2765 Output Total 275 300 Balance 500 3114.583 2465 - Objective General Appearance: positive: No acute distress, Alert Eyes Bilateral: positive: Normal inspection ENT: positive: ENT inspection nml Neck: positive: Nml inspection Respiratory: positive: No respiratory distress. negative: Wheezes, Rales Cardiovascular: positive: No murmur, Irregularly irregular. negative: Systolic murmur Abdomen: positive: Non-tender, No distention. negative: Tenderness Skin: positive: Warm, Dry Extremities: positive: Full ROM Neurologic/Psychiatric: positive: Other (No focal deficits.). negative: Disoriented to person, Disoriented to place - Lab Results Fish Bones: 09/25/19 05:23 09/25/19 05:23 Other Labs: Lab Results x24hrs 09/25/19 09/25/19 09/25/19 Range/Units 10:00 06:53 05:23 WBC (4.8-10.8) x10^3/uL RBC (4.20-5.40) 10^6/uL Hgb (12.0-16.0) g/dL Hct (37.0-47.0) % MCV (81.0-99.0) fL MCH (27.0-31.0) pg MCHC (32.0-36.0) g/dL RDW (12.0-15.0) % Plt Count (130-450) 10^3/uL MPV (7.9-10.8) fL Neut # (Auto) Lymph # (Auto) [place] # (Auto) Eos # (Auto) Baso # (Auto) Absolute Nucleated RBC Total Counted Band Neuts % (Manual) (0 - 10) % Abnorm Lymph % (Manual) % Nucleated RBC % Neutrophils # (Manual) (1.5-6.6) 10^3/uL Lymphocytes # (Manual) (1.5-3.5) 10^3/uL Monocytes # (Manual) (0.0-1.0) 10^3/uL Eosinophils # (Manual) (0-0.7) 10^3/uL Basophils # (Manual) (0-0.1) 10^3/uL Differential Comment WBC Morphology (NORMAL) Platelet Estimate (NORMAL) Platelet Morphology (NORMAL) RBC Morph Micro Appear (NORMAL) Sodium 140 (135-145) mmol/L Potassium 4.4 (3.5-5.0) mmol/L Chloride 111 (101-111) mmol/L Carbon Dioxide 20 L (21-32) mmol/L Anion Gap 9.0 (6-13) BUN 14 (6-20) mg/dL Creatinine 0.5 (0.4-1.0) mg/dL Estimated GFR (MDRD) 117 (>89) Glucose 120 H (70-100) mg/dL Calcium 7.7 L (8.5-10.3) mg/dL Stl Occult Blood (IFOB) POSITIVE A (NEGATIVE) Blood Type A POSITIVE Blood Type Recheck Antibody Screen NEGATIVE Crossmatch IS Only See Detail 09/25/19 09/25/19 Range/Units 05:23 05:00 WBC 47.7 H* (4.8-10.8) x10^3/uL RBC 2.44 L (4.20-5.40) 10^6/uL Hgb 6.5 L* (12.0-16.0) g/dL Hct 22.1 L (37.0-47.0) % MCV 90.6 (81.0-99.0) fL MCH 26.6 L (27.0-31.0) pg MCHC 29.4 L (32.0-36.0) g/dL RDW 16.1 H (12.0-15.0) % Plt Count 220 (130-450) 10^3/uL MPV 10.2 (7.9-10.8) fL Neut # (Auto) Not Reportable Lymph # (Auto) Not Reportable [place] # (Auto) Not Reportable Eos # (Auto) Not Reportable Baso # (Auto) Not Reportable Absolute Nucleated RBC Not Reportable Total Counted 100 Band Neuts % (Manual) 0 (0 - 10) % Abnorm Lymph % (Manual) 0 % Nucleated RBC % Not Reportable Neutrophils # (Manual) 7.6 H (1.5-6.6) 10^3/uL Lymphocytes # (Manual) 38.6 H (1.5-3.5) 10^3/uL Monocytes # (Manual) 0.5 (0.0-1.0) 10^3/uL Eosinophils # (Manual) 1.0 H (0-0.7) 10^3/uL Basophils # (Manual) 0.0 (0-0.1) 10^3/uL Differential Comment MANUAL DIFFERENTIAL WBC Morphology NORMAL APPEARANCE (NORMAL) Platelet Estimate NORMAL (130-450,000) (NORMAL) Platelet Morphology NORMAL APPEARANCE (NORMAL) RBC Morph Micro Appear 2+ HYPOCHROMASIA (NORMAL) Sodium (135-145) mmol/L Potassium (3.5-5.0) mmol/L Chloride (101-111) mmol/L Carbon Dioxide (21-32) mmol/L Anion Gap (6-13) BUN (6-20) mg/dL Creatinine (0.4-1.0) mg/dL Estimated GFR (MDRD) (>89) Glucose (70-100) mg/dL Calcium (8.5-10.3) mg/dL Stl Occult Blood (IFOB) (NEGATIVE) Blood Type Blood Type Recheck A POSITIVE Antibody Screen Crossmatch IS Only ABX Reporting Has patient been on IV antibiotics over the past 48 hours?: No Assessment/Plan - Problem List (1) Anemia Impression: 7.9 on admission and decrease is a 7.1 and today 6.5. Do not have recent labs available to me but prior hemoglobin from 40s ago was within normal limits. Will need to rule out bleeding given her continued drop was may be related to her CLL. We will transfuse her 1 packed red blood cell today. We will recheck hemoglobin this evening. Check her stool for occult bleeding. If this is positive we will start her on Protonix IV empirically and consult general surgery for possible endoscopy. (2) Atrial fibrillation with RVR Impression: She has been rate controlled on metoprolol and diltiazem. Echocardiogram has been ordered and is pending. Troponin was mildly elevated on admission and so we will recheck this as well as a TSH. Continue to monitor on telemetry. (3) CLL (chronic lymphocytic leukemia) Impression: She has known history of CLL but has never received treatment for it. Her white count remained stable. She can continue outpatient follow-up with her primary care provider and referral to oncology can be considered once again. (4) Fecal impaction Impression: Resolved. She is now having bowel movements. We will continue her on a bowel regimen. (5) Hyperlipidemia Impression: Stable. Continue statin. (6) Dementia Impression: Stable. She appears to be at baseline from a neurologic standpoint.
[2019-09-25] MEDS ORDERED: PANTOPRAZOLE 40 MG VIAL IVP STA (14:05)
[2019-09-25 18:25] LABS: HGB - HEMOGLOBIN 8.5 g/dL (12.0-16.0)
[2019-09-25] MEDS: QUEtiapine 25 MG TABLET PO SCH (20:57)
[2019-09-25] MEDS: ATORVASTATIN 10 MG TABLET PO SCH (20:57)
[2019-09-25] MEDS: PANTOPRAZOLE 40 MG VIAL IVP SCH (20:57)
[2019-09-25] MEDS ORDERED: ASPIRIN EC 81 MG TABLET PO SCH (21:00)
[2019-09-26] MEDS: SODIUM CHLORIDE FLUSH 0.9% 10 ML SYRINGE IVP SCH ×4 (00:10→23:43)
[2019-09-26 05:29] LABS: BASOPHILS % (AUTO) 0.2 %; EOSINOPHILS % (AUTO) 0.6 %; HGB - HEMOGLOBIN 8.1 g/dL (12.0-16.0); LYMPHOCYTES % (AUTO) 84.7 %; MEAN CORPUSCULAR HEMOGLOBIN 27.2 pg (27.0-31.0); MEAN CORPUSCULAR HGB CONC 29.8 g/dL (32.0-36.0); MEAN CORPUSCULAR VOLUME 91.3 fL (81.0-99.0); MEAN PLATELET VOLUME 10.4 fL (7.9-10.8); MONOCYTES % (AUTO) 1.6 %; NEUTROPHILS % (AUTO) 12.3 %; PLT - PLATELET COUNT 224 10^3/uL (130-450); RED BLOOD COUNT 2.98 10^6/uL (4.20-5.40); RED CELL DISTRIBUTION WIDTH 15.8 % (12.0-15.0)
[2019-09-26 05:40] LABS: CALCIUM 8.2 mg/dL (8.5-10.3); CREATININE 0.6 mg/dL (0.4-1.0)
[2019-09-26 05:42] LABS: WHITE BLOOD COUNT 55.8 x10^3/uL (4.8-10.8)
[2019-09-26 05:44] LABS: ABNORMAL LYMPHS % (MANUAL) 0 %; BAND NEUTROPHILS % (MANUAL) 0 %
[2019-09-26 06:34] LABS: DIFFERENTIAL COMMENT MANUAL DIFFERENTIAL; LYMPHOCYTES # (MANUAL) 48.5 10^3/uL (1.5-3.5); LYMPHOCYTES % (MANUAL) 87 %; MONOCYTES # (MANUAL) 0.6 10^3/uL (0.0-1.0); PLATELET ESTIMATE, MANUAL NORMAL (130-450,000) (NORMAL); RBC MORPHOLOGY (MULTIPLE) NORMAL APPEARANCE (NORMAL)
[2019-09-26 08:52] LABS: INR 1.3 (0.8-1.2)
[2019-09-26] MEDS: METOPROLOL TARTRATE 25 MG TABLET PO SCH ×2 (09:14→20:47)
[2019-09-26] MEDS: SERTRALINE 50 MG TABLET PO SCH (09:15)
[2019-09-26] MEDS: diltiaZEM 30 MG TABLET PO SCH ×4 (09:16→20:46)
[2019-09-26] MEDS: polyethylene glycoL 3350 17 GM PACKET PO SCH (09:17)
[2019-09-26] MEDS: MULTIVITAMIN TABLET PO SCH (09:20)
[2019-09-26] MEDS: DOCUSATE SODIUM 100 MG CAPSULE PO SCH (09:20)
[2019-09-26] MEDS: PANTOPRAZOLE 40 MG VIAL IVP SCH ×2 (09:23→20:47)
[2019-09-26] MEDS ORDERED: METOPROLOL 5 MG/5 ML VIAL IVP STA (10:26)
[2019-09-26] MEDS ORDERED: FUROSEMIDE 20 MG/2 ML VIAL IVP STA (13:00)
--- NOTE | 2019-09-26 14:09 | PROVIDER PROGRESS NOTE ---
Subjective - Prog Note Date Prog Note Date: 09/26/19 - Subjective Subjective: She reports not feeling very well today. She feels a little short of breath. Reports mild right upper quadrant abdominal pain. No more vomiting. She has been tolerating clear liquid diet. Current Medications - Current Medications Current Medications: Active Medications Acetaminophen (Tylenol) 650 mg PO Q6H PRN PRN Reason: PAIN Last Admin: 09/26/19 15:46 Dose: 650 mg Documented by: Atorvastatin Calcium (Lipitor) 20 mg PO QPM [facility] Last Admin: 09/25/19 20:57 Dose: Not Given Documented by: Diltiazem HCl (Cardizem) 30 mg PO QID [facility] Last Admin: 09/26/19 17:24 Dose: 30 mg Documented by: Docusate Sodium (Colace 100mg Capsule) 100 mg PO DAILY [facility] Last Admin: 09/26/19 09:20 Dose: 100 mg Documented by: Metoprolol Tartrate (Lopressor) 50 mg PO BID [facility] Multivitamins (Theragran) 1 tab PO DAILYWM [facility] Last Admin: 09/26/19 09:20 Dose: 1 tab Documented by: Ondansetron HCl (Zofran Inj) 4 mg IVP Q4HR PRN PRN Reason: Nausea / Vomiting Last Admin: 09/25/19 09:35 Dose: 4 mg Documented by: Pantoprazole Sodium (Protonix) 40 mg IVP BID [facility] Last Admin: 09/26/19 09:23 Dose: 40 mg Documented by: Polyethylene Glycol (Miralax) 17 gm PO DAILY [facility] Last Admin: 09/26/19 09:17 Dose: 17 gm Documented by: Quetiapine Fumarate (Seroquel) 50 mg PO QPM [facility] Last Admin: 09/25/19 20:57 Dose: Not Given Documented by: Sertraline HCl (Zoloft) 200 mg PO DAILY [facility] Last Admin: 09/26/19 09:15 Dose: 200 mg Documented by: Sodium Chloride (Normal Saline Flush 0.9%) 10 ml IVP PRN PRN PRN Reason: NEEDED PER PROVIDER ORDERS Last Admin: 09/25/19 20:57 Dose: 10 ml Documented by: Sodium Chloride (Normal Saline Flush 0.9%) 10 ml IVP 0100,0900,1700 [facility] Last Admin: 09/26/19 17:25 Dose: 10 ml Documented by: Sodium Sulfate/Potass Sulf/Mag Sulf (Suprep Bowel Prep Kit) 177 ml PO 1800,0500 [facility] Stop: 09/27/19 05:01 Alendronate Sodium 70 mg PO Q7D 06/05/19 Docusate Sodium 100 mg PO DAILY 06/05/19 Furosemide [Lasix] 20 mg PO DAILY PRN 06/05/19 Metoprolol Tartrate 25 mg PO BID 06/05/19 Multivitamin [Multivitamins] 1 cap PO DAILY 06/05/19 Quetiapine Fumarate 50 mg PO QPM 06/05/19 Sertraline HCl 200 mg PO DAILY 06/05/19 Acetaminophen [Tylenol] 650 mg PO Q6H PRN 09/23/19 Aspirin [Aspirin EC] 81 mg PO QPM 09/23/19 Omeprazole 20 mg PO DAILY 09/23/19 Ondansetron HCl [Zofran] 4 mg PO Q6HR PRN 09/23/19 Lovastatin 40 mg PO QPM 09/24/19 Psyllium Husk [Metamucil] 1 gm PO BID 09/24/19 Objective - Vital Signs/Intake & Output Reviewed Vital Signs: Yes Vital Signs: Vital Signs x48h Temp Pulse Pulse Pulse Pulse Resp BP 09/26/19 14:05 102 H 24 09/26/19 12:00 110 H 09/26/19 11:45 104 H 09/26/19 11:40 110 H 106 H 97 97 09/26/19 11:35 113 H 09/26/19 11:27 36.9 C 95 17 09/26/19 09:14 124/71 09/26/19 08:30 36.4 C L 136 H 18 BP BP BP BP BP Pulse Ox 09/26/19 14:05 109/63 95 09/26/19 12:00 115/79 09/26/19 11:45 122/72 09/26/19 11:40 115/79 120/75 120/75 120/75 09/26/19 11:35 131/90 H 09/26/19 11:27 116/84 H 92 09/26/19 09:14 09/26/19 08:30 128/72 91 L Intake & Output: Intake & Output 09/23/19 09/24/19 09/25/19 09/26/19 23:59 23:59 23:59 23:59 Intake Total 500 3389.583 3115 Output Total 148 850 450 Balance 500 3114.583 2265 -450 - Objective General Appearance: positive: No acute distress, Alert, Mild distress Eyes Bilateral: positive: Normal inspection ENT: positive: ENT inspection nml Neck: positive: Nml inspection Respiratory: positive: No respiratory distress, Other (Diminished breath sounds bilaterally). negative: Wheezes, Rales Cardiovascular: positive: Irregularly irregular, Tachycardia. negative: Bradycardia, Systolic murmur Abdomen: positive: Non-tender, No distention. negative: Tenderness Skin: positive: Warm, Dry, Pallor Extremities: positive: Pedal edema (Trace pitting edema in the bilateral lower extremities) Neurologic/Psychiatric: negative: Disoriented to person, Disoriented to place - Lab Results Fish Bones: 09/26/19 04:45 09/26/19 04:45 Other Labs: Lab Results x24hrs 09/26/19 09/26/19 09/26/19 Range/Units 08:12 04:45 04:45 WBC (4.8-10.8) x10^3/uL RBC (4.20-5.40) 10^6/uL Hgb (12.0-16.0) g/dL Hct (37.0-47.0) % MCV (81.0-99.0) fL MCH (27.0-31.0) pg MCHC (32.0-36.0) g/dL RDW (12.0-15.0) % Plt Count (130-450) 10^3/uL MPV (7.9-10.8) fL Neut # (Auto) Lymph # (Auto) [place] # (Auto) Eos # (Auto) Baso # (Auto) Absolute Nucleated RBC Total Counted Band Neuts % (Manual) (0 - 10) % Abnorm Lymph % (Manual) % Nucleated RBC % Neutrophils # (Manual) (1.5-6.6) 10^3/uL Lymphocytes # (Manual) (1.5-3.5) 10^3/uL Monocytes # (Manual) (0.0-1.0) 10^3/uL Eosinophils # (Manual) (0-0.7) 10^3/uL Basophils # (Manual) (0-0.1) 10^3/uL Differential Comment WBC Morphology (NORMAL) Platelet Estimate (NORMAL) RBC Morph Micro Appear (NORMAL) PT 15.0 H (9.9-12.6) secs INR 1.3 H (0.8-1.2) Sodium 140 (135-145) mmol/L Potassium 4.3 (3.5-5.0) mmol/L Chloride 108 (101-111) mmol/L Carbon Dioxide 23 (21-32) mmol/L Anion Gap 9.0 (6-13) BUN 9 (6-20) mg/dL Creatinine 0.6 (0.4-1.0) mg/dL Estimated GFR (MDRD) 95 (>89) Glucose 107 H (70-100) mg/dL Calcium 8.2 L (8.5-10.3) mg/dL Troponin I High Sens (2.3-14.8) ng/L B-Natriuretic Peptide 926 H (5-100) pg/mL TSH (0.34-5.60) uIU/mL Coronavirus (PCR) 09/26/19 09/25/19 09/25/19 Range/Units 04:45 18:20 18:20 WBC 55.8 H* (4.8-10.8) x10^3/uL RBC 2.98 L (4.20-5.40) 10^6/uL Hgb 8.1 L (12.0-16.0) g/dL Hct 27.2 L (37.0-47.0) % MCV 91.3 (81.0-99.0) fL MCH 27.2 (27.0-31.0) pg MCHC 29.8 L (32.0-36.0) g/dL RDW 15.8 H (12.0-15.0) % Plt Count 224 (130-450) 10^3/uL MPV 10.4 (7.9-10.8) fL Neut # (Auto) Not Reportable Lymph # (Auto) Not Reportable [place] # (Auto) Not Reportable Eos # (Auto) Not Reportable Baso # (Auto) Not Reportable Absolute Nucleated RBC Not Reportable Total Counted 100 Band Neuts % (Manual) 0 (0 - 10) % Abnorm Lymph % (Manual) 0 % Nucleated RBC % Not Reportable Neutrophils # (Manual) 6.7 H (1.5-6.6) 10^3/uL Lymphocytes # (Manual) 48.5 H (1.5-3.5) 10^3/uL Monocytes # (Manual) 0.6 (0.0-1.0) 10^3/uL Eosinophils # (Manual) 0.0 (0-0.7) 10^3/uL Basophils # (Manual) 0.0 (0-0.1) 10^3/uL Differential Comment MANUAL DIFFERENTIAL WBC Morphology 1+ SMUDGE CELLS (NORMAL) Platelet Estimate NORMAL (130-450,000) (NORMAL) RBC Morph Micro Appear NORMAL APPEARANCE (NORMAL) PT (9.9-12.6) secs INR (0.8-1.2) Sodium (135-145) mmol/L Potassium (3.5-5.0) mmol/L Chloride (101-111) mmol/L Carbon Dioxide (21-32) mmol/L Anion Gap (6-13) BUN (6-20) mg/dL Creatinine (0.4-1.0) mg/dL Estimated GFR (MDRD) (>89) Glucose (70-100) mg/dL Calcium (8.5-10.3) mg/dL Troponin I High Sens 28.3 H* (2.3-14.8) ng/L B-Natriuretic Peptide (5-100) pg/mL TSH 2.09 (0.34-5.60) uIU/mL Coronavirus (PCR) 09/25/19 09/24/19 Range/Units 18:20 12:00 WBC (4.8-10.8) x10^3/uL RBC (4.20-5.40) 10^6/uL Hgb 8.5 L (12.0-16.0) g/dL Hct 26.9 L (37.0-47.0) % MCV (81.0-99.0) fL MCH (27.0-31.0) pg MCHC (32.0-36.0) g/dL RDW (12.0-15.0) % Plt Count (130-450) 10^3/uL MPV (7.9-10.8) fL Neut # (Auto) Lymph # (Auto) [place] # (Auto) Eos # (Auto) Baso # (Auto) Absolute Nucleated RBC Total Counted Band Neuts % (Manual) (0 - 10) % Abnorm Lymph % (Manual) % Nucleated RBC % Neutrophils # (Manual) (1.5-6.6) 10^3/uL Lymphocytes # (Manual) (1.5-3.5) 10^3/uL Monocytes # (Manual) (0.0-1.0) 10^3/uL Eosinophils # (Manual) (0-0.7) 10^3/uL Basophils # (Manual) (0-0.1) 10^3/uL Differential Comment WBC Morphology (NORMAL) Platelet Estimate (NORMAL) RBC Morph Micro Appear (NORMAL) PT (9.9-12.6) secs INR (0.8-1.2) Sodium (135-145) mmol/L Potassium (3.5-5.0) mmol/L Chloride (101-111) mmol/L Carbon Dioxide (21-32) mmol/L Anion Gap (6-13) BUN (6-20) mg/dL Creatinine (0.4-1.0) mg/dL Estimated GFR (MDRD) (>89) Glucose (70-100) mg/dL Calcium (8.5-10.3) mg/dL Troponin I High Sens (2.3-14.8) ng/L B-Natriuretic Peptide (5-100) pg/mL TSH (0.34-5.60) uIU/mL Coronavirus (PCR) NEGATIVE ABX Reporting Has patient been on IV antibiotics over the past 48 hours?: No Assessment/Plan - Problem List (1) Anemia Impression: Suspect this is secondary to a GI bleed. She has responded well to 1 unit of packed red blood cell yesterday. Did decrease again this morning. Her stool is heme positive. I have spoken with general surgery and she has been placed on a clear liquid diet and a bowel prep in preparation for endoscopy and colonoscopy tomorrow. Continue to monitor her hemoglobin. (2) Atrial fibrillation with RVR Impression: Her heart rate has been poorly controlled overnight and this morning. We will increase her metoprolol dose and continue with her current diltiazem dose. Continue to monitor on telemetry. (3) Heme positive stool Impression: Her stool is heme positive and she is anemic. She has required 1 unit of packed red blood cells during this hospitalization. We are holding her aspirin and we have started her on Protonix IV twice daily. General surgery has been con sulted for endoscopy and colonoscopy tomorrow. (4) Dyspnea Impression: Suspect this is multifactorial and related to her anemia as well as possible component of heart failure. She is little more edematous today and her BNP has increased. We will give her a dose of IV Lasix. Echocardiogram has been ordered and is pending. (5) CLL (chronic lymphocytic leukemia) Impression: Her white count is elevated but this appears stable overall. Her daughter reiterated to me today that her oncologist saw her recently and stated he does not need to see her again and that her CLL is stable that her white count will increase during acute stressors like when she had surgery back at [facility] a month ago. (6) Fecal impaction Impression: Continue with bowel regimen. She is getting a prep today for colonoscopy tomorrow (7) Hyperlipidemia Impression: Continue her statin. (8) Dementia Impression: Stable and at baseline.
--- NOTE | 2019-09-26 17:56 | CONSULTATION NOTE ---
Referring Provider Name of Referring Provider:: Marcos Landon Consult Date: 09/26/19 Chief Complaint - Chief Complaint Chief Complaint: Acute blood loss anemia, hematochezia History of Present Illness - Admitted From Admitted From:: Home - History Obtained From Records Reviewed: EMR and patient/daughter History obtained from: EMR and patient/daughter - History of Present Illness HPI Comment/Other: 84-year-old female with recent foregut surgery including hiatal hernia repair. She is also been recently admitted for atrial fibrillation. Patient presents with presumptive gastrointestinal bleed. She had been noted for drop in her hemoglobin hematocrit during her last hospitalization at outside facility perioperatively. At the time of admission she was noted for relative drop in hemoglobin and has during her hospitalization required transfusion x2. She has not had significant bowel function however was positive for occult blood in stool. We discussed with hospitalist, who consulted surgery for upper and lower endoscopy as part of work-up for acute blood loss anemia. 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 Social History Notes: Patient does not smoke. However she is a former smoker. She does not use alcohol or illicit drug products. She resides at [facility] - POLST Patient has POLST: No POLST Status: Limited Interventions (DNI) Meds/Allgy - Home Medications Home Medications: Ambulatory Orders Medication Instructions Recorded Confirmed Alendronate Sodium 70 mg PO Q7D 06/05/19 09/24/19 Docusate Sodium 100 mg PO DAILY 06/05/19 09/24/19 Furosemide [Lasix] 20 mg PO DAILY PRN 06/05/19 09/24/19 Metoprolol Tartrate 25 mg PO BID 06/05/19 09/24/19 Multivitamin [Multivitamins] 1 cap PO DAILY 06/05/19 09/24/19 Quetiapine Fumarate 50 mg PO QPM 06/05/19 09/24/19 Sertraline HCl 200 mg PO DAILY 06/05/19 09/24/19 Acetaminophen [Tylenol] 650 mg PO Q6H PRN 09/23/19 09/24/19 Aspirin [Aspirin EC] 81 mg PO QPM 09/23/19 09/24/19 Omeprazole 20 mg PO DAILY 09/23/19 09/24/19 Ondansetron HCl [Zofran] 4 mg PO Q6HR PRN 09/23/19 09/24/19 Lovastatin 40 mg PO QPM 09/24/19 09/24/19 Psyllium Husk [Metamucil] 1 gm PO BID 09/24/19 09/24/19 - Allergies Allergies/Adverse Reactions: Allergies Allergy/AdvReac Type Severity Reaction Status Date / Time No Known Drug Allergies Allergy Verified 09/23/19 15:43 Review of Systems - Constitutional Constitutional: reports: Fatigue, Weakness, Poor appetite - Cardiovascular Cariovascular: reports: Irregular heart rate - Gastrointestinal Gastrointestinal: reports: Nausea, Vomiting, Reflux/heartburn, Other (Recent hiatal hernia repair EMR and patient/daughter) - Neurological Neurological: reports: Other (Mild dementia) Exam - Vital Signs Vital Signs: Vital Signs x48h Temp Pulse Pulse Pulse Pulse Resp BP 09/26/19 17:24 113/63 09/26/19 15:25 36.3 C L 102 H 18 09/26/19 14:05 102 H 24 09/26/19 12:00 110 H 09/26/19 11:45 104 H 09/26/19 11:40 110 H 106 H 97 97 09/26/19 11:35 113 H 09/26/19 11:27 36.9 C 95 17 BP BP BP BP BP Pulse Ox 09/26/19 17:24 09/26/19 15:25 113/63 95 09/26/19 14:05 109/63 95 09/26/19 12:00 115/79 09/26/19 11:45 122/72 09/26/19 11:40 115/79 120/75 120/75 120/75 09/26/19 11:35 131/90 H 09/26/19 11:27 116/84 H 92 - Physical Exam General Appearance: positive: No acute distress, Alert Eyes Bilateral: positive: Normal inspection, PERRL, EOMI ENT: positive: ENT inspection nml Neck: positive: Nml inspection Respiratory: positive: Chest non-tender, No respiratory distress, Breath sounds nml Cardiovascular: positive: Irregularly irregular Abdomen: positive: Non-tender. negative: Tenderness, Guarding, Rebound Rectal: positive: Other (Deferred) Extremities: positive: Non-tender, Full ROM Neurologic/Psychiatric: positive: Oriented x3, CN's nml (2-12) Conclusion/Plan - Diagnosis Diagnosis: Gastrointestinal bleed. Acute blood loss anemia. Recent foregut surgery including hiatal hernia repair. Dementia. Status post blood transfusion. Atrial fibrillation. History of CLL - Lab Results Fish Bones: 09/27/19 04:30 09/27/19 04:30 - Other Other Results/Comments: 1. Admit to hospitalist service. 2. Trend H&H, transfuse as necessary. 3. Agree with upper and lower endoscopy. 4. Bowel prep at this time. 5. Bowel rest. 6. PPI infusion and consider Carafate pending results.
[2019-09-26] MEDS: SODIUM/POTASSIUM/MAG SULFATES 354 ML PREP KIT PO SCH (18:06)
[2019-09-26] MEDS: ATORVASTATIN 10 MG TABLET PO SCH (20:47)
[2019-09-26] MEDS: QUEtiapine 25 MG TABLET PO SCH (20:47)
[2019-09-26] MEDS ORDERED: SODIUM CHLORIDE 0.9% 500 ML IV ONE (23:31)
[2019-09-27] MEDS: SODIUM CHLORIDE FLUSH 0.9% 10 ML SYRINGE IVP PRN ×3 (00:30→21:07)
[2019-09-27] MEDS: SODIUM/POTASSIUM/MAG SULFATES 354 ML PREP KIT PO SCH (04:56)
[2019-09-27 05:23] LABS: BASOPHILS % (AUTO) 0.1 %; EOSINOPHILS # (AUTO) 0.2 10^3/uL (0.0-0.7); EOSINOPHILS % (AUTO) 0.6 %; HGB - HEMOGLOBIN 7.3 g/dL (12.0-16.0); LYMPHOCYTES # (AUTO) 29.6 10^3/uL (1.5-3.5); LYMPHOCYTES % (AUTO) 81.9 %; MEAN CORPUSCULAR HEMOGLOBIN 26.4 pg (27.0-31.0); MEAN CORPUSCULAR HGB CONC 29.6 g/dL (32.0-36.0); MEAN CORPUSCULAR VOLUME 89.5 fL (81.0-99.0); MEAN PLATELET VOLUME 10.4 fL (7.9-10.8); MONOCYTES # (AUTO) 0.7 10^3/uL (0.0-1.0); NEUTROPHILS # (AUTO) 5.4 10^3/uL (1.5-6.6); NEUTROPHILS % (AUTO) 14.9 %; PLT - PLATELET COUNT 197 10^3/uL (130-450); RED BLOOD COUNT 2.76 10^6/uL (4.20-5.40); RED CELL DISTRIBUTION WIDTH 16.3 % (12.0-15.0)
[2019-09-27 05:34] LABS: CALCIUM 7.5 mg/dL (8.5-10.3); CREATININE 0.5 mg/dL (0.4-1.0); MAGNESIUM 1.9 mg/dL (1.7-2.8); PHOSPHORUS 3.4 mg/dL (2.5-4.6)
[2019-09-27 05:36] LABS: WHITE BLOOD COUNT 35.9 x10^3/uL (4.8-10.8)
[2019-09-27 06:04] LABS: DIFFERENTIAL COMMENT MANUAL=AUTO DIFF; PLATELET ESTIMATE, MANUAL NORMAL (130-450,000) (NORMAL); RBC MORPHOLOGY (MULTIPLE) NORMAL APPEARANCE (NORMAL)
--- NOTE | 2019-09-27 07:34 | PROVIDER PROGRESS NOTE ---
Subjective - Prog Note Date Prog Note Date: 09/27/19 - Subjective Subjective: She had a large bowel movement today after receiving the bowel prep yesterday. She reports feeling fatigued after this bowel movement. She denies any pain, reports no chest pain, dyspnea, abdominal pain. Current Medications - Current Medications Current Medications: Active Medications Acetaminophen (Tylenol) 650 mg PO Q6H PRN PRN Reason: PAIN Last Admin: 09/26/19 15:46 Dose: 650 mg Documented by: Atorvastatin Calcium (Lipitor) 20 mg PO QPM [facility] Last Admin: 09/26/19 20:47 Dose: 20 mg Documented by: Docusate Sodium (Colace 100mg Capsule) 100 mg PO DAILY [facility] Last Admin: 09/27/19 08:29 Dose: 100 mg Documented by: Metoprolol Tartrate (Lopressor) 50 mg PO BID [facility] Last Admin: 09/27/19 08:27 Dose: 50 mg Documented by: Multivitamins (Theragran) 1 tab PO DAILYWM [facility] Last Admin: 09/27/19 08:29 Dose: 1 tab Documented by: Ondansetron HCl (Zofran Inj) 4 mg IVP Q4HR PRN PRN Reason: Nausea / Vomiting Last Admin: 09/25/19 09:35 Dose: 4 mg Documented by: Pantoprazole Sodium (Protonix) 40 mg IVP BID [facility] Last Admin: 09/27/19 08:30 Dose: 40 mg Documented by: Polyethylene Glycol (Miralax) 17 gm PO DAILY [facility] Last Admin: 09/27/19 08:26 Dose: Not Given Documented by: Quetiapine Fumarate (Seroquel) 50 mg PO QPM [facility] Last Admin: 09/26/19 20:47 Dose: 50 mg Documented by: Sertraline HCl (Zoloft) 200 mg PO DAILY [facility] Last Admin: 09/27/19 08:27 Dose: 200 mg Documented by: Sodium Chloride (Normal Saline Flush 0.9%) 10 ml IVP PRN PRN PRN Reason: NEEDED PER PROVIDER ORDERS Last Admin: 09/27/19 08:39 Dose: 10 ml Documented by: Sodium Chloride (Normal Saline Flush 0.9%) 10 ml IVP 0100,0900,1700 [facility] Last Admin: 09/27/19 07:49 Dose: 10 ml Documented by: Alendronate Sodium 70 mg PO Q7D 06/05/19 Docusate Sodium 100 mg PO DAILY 06/05/19 Furosemide [Lasix] 20 mg PO DAILY PRN 06/05/19 Metoprolol Tartrate 25 mg PO BID 06/05/19 Multivitamin [Multivitamins] 1 cap PO DAILY 06/05/19 Quetiapine Fumarate 50 mg PO QPM 06/05/19 Sertraline HCl 200 mg PO DAILY 06/05/19 Acetaminophen [Tylenol] 650 mg PO Q6H PRN 09/23/19 Aspirin [Aspirin EC] 81 mg PO QPM 09/23/19 Omeprazole 20 mg PO DAILY 09/23/19 Ondansetron HCl [Zofran] 4 mg PO Q6HR PRN 09/23/19 Lovastatin 40 mg PO QPM 09/24/19 Psyllium Husk [Metamucil] 1 gm PO BID 09/24/19 Objective - Vital Signs/Intake & Output Reviewed Vital Signs: Yes Vital Signs: Vital Signs x48h Temp Pulse Pulse Resp BP Pulse Ox 09/27/19 05:05 20 96 09/27/19 05:00 22 85 L 09/27/19 04:33 36.6 C 86 16 91/56 L 92 09/27/19 00:35 74 85/49 L Intake & Output: Intake & Output 09/24/19 09/25/19 09/26/19 09/27/19 23:59 23:59 23:59 23:59 Intake Total 3389.583 3115 0 750 Output Total 680 110 2322 Balance 3114.583 2265 -2150 750 - Objective General Appearance: positive: Alert, Other (Appears fatigued but is alert) Eyes Bilateral: positive: Normal inspection ENT: positive: ENT inspection nml Neck: positive: Nml inspection Respiratory: positive: No respiratory distress. negative: Wheezes, Rales Cardiovascular: positive: Irregularly irregular, Tachycardia. negative: Juliocesar cardia, Systolic murmur Abdomen: positive: Non-tender, No distention. negative: Tenderness Skin: positive: Warm, Dry Extremities: positive: Pedal edema (Trace pitting edema in the bilateral lower extremities.) Neurologic/Psychiatric: positive: Disoriented to place, Other (She is moving all 4 extremities.). negative: Disoriented to person - Lab Results Fish Bones: 09/27/19 04:30 08/06/20 04:30 Other Labs: Lab Results x24hrs 09/27/19 09/27/19 09/26/19 Range/Units 04:30 04:30 16:20 WBC 35.9 H* (4.8-10.8) x10^3/uL RBC 2.76 L (4.20-5.40) 10^6/uL Hgb 7.3 L (12.0-16.0) g/dL Hct 24.7 L (37.0-47.0) % MCV 89.5 (81.0-99.0) fL MCH 26.4 L (27.0-31.0) pg MCHC 29.6 L (32.0-36.0) g/dL RDW 16.3 H (12.0-15.0) % Plt Count 197 (130-450) 10^3/uL MPV 10.4 (7.9-10.8) fL Neut # (Auto) 5.4 (1.5-6.6) 10^3/uL Lymph # (Auto) 29.6 H (1.5-3.5) 10^3/uL [place] # (Auto) 0.7 (0.0-1.0) 10^3/uL Eos # (Auto) 0.2 (0.0-0.7) 10^3/uL Baso # (Auto) 0.0 (0.0-0.1) 10^3/uL Absolute Nucleated RBC 0.02 x10^3/uL Band Neuts % (Manual) Not Reportable Abnorm Lymph % (Manual) Not Reportable Nucleated RBC % 0.1 /100WBC Neutrophils # (Manual) Not Reportable Lymphocytes # (Manual) Not Reportable Monocytes # (Manual) Not Reportable Eosinophils # (Manual) Not Reportable Basophils # (Manual) Not Reportable Differential Comment MANUAL=AUTO DIFF WBC Morphology 1+ SMUDGE CELLS (NORMAL) Platelet Estimate NORMAL (130-450,000) (NORMAL) RBC Morph Micro Appear NORMAL APPEARANCE (NORMAL) PT (9.9-12.6) secs INR (0.8-1.2) Sodium 141 (135-145) mmol/L Potassium 2.7 L (3.5-5.0) mmol/L Chloride 108 (101-111) mmol/L Carbon Dioxide 24 (21-32) mmol/L Anion Gap 9.0 (6-13) BUN 11 (6-20) mg/dL Creatinine 0.5 (0.4-1.0) mg/dL Estimated GFR (MDRD) 117 (>89) Glucose 108 H (70-100) mg/dL Calcium 7.5 L (8.5-10.3) mg/dL Phosphorus 3.4 (2.5-4.6) mg/dL Magnesium 1.9 (1.7-2.8) mg/dL Coronavirus (PCR) NEGATIVE Blood Type Antibody Screen Crossmatch IS Only 09/26/19 09/25/19 Range/Units 08:12 06:53 WBC (4.8-10.8) x10^3/uL RBC (4.20-5.40) 10^6/uL Hgb (12.0-16.0) g/dL Hct (37.0-47.0) % MCV (81.0-99.0) fL MCH (27.0-31.0) pg MCHC (32.0-36.0) g/dL RDW (12.0-15.0) % Plt Count (130-450) 10^3/uL MPV (7.9-10.8) fL Neut # (Auto) (1.5-6.6) 10^3/uL Lymph # (Auto) (1.5-3.5) 10^3/uL [place] # (Auto) (0.0-1.0) 10^3/uL Eos # (Auto) (0.0-0.7) 10^3/uL Baso # (Auto) (0.0-0.1) 10^3/uL Absolute Nucleated RBC x10^3/uL Band Neuts % (Manual) Abnorm Lymph % (Manual) Nucleated RBC % /100WBC Neutrophils # (Manual) Lymphocytes # (Manual) Monocytes # (Manual) Eosinophils # (Manual) Basophils # (Manual) Differential Comment WBC Morphology (NORMAL) Platelet Estimate (NORMAL) RBC Morph Micro Appear (NORMAL) PT 15.0 H (9.9-12.6) secs INR 1.3 H (0.8-1.2) Sodium (135-145) mmol/L Potassium (3.5-5.0) mmol/L Chloride (101-111) mmol/L Carbon Dioxide (21-32) mmol/L Anion Gap (6-13) BUN (6-20) mg/dL Creatinine (0.4-1.0) mg/dL Estimated GFR (MDRD) (>89) Glucose (70-100) mg/dL Calcium (8.5-10.3) mg/dL Phosphorus (2.5-4.6) mg/dL Magnesium (1.7-2.8) mg/dL Coronavirus (PCR) Blood Type A POSITIVE Antibody Screen NEGATIVE Crossmatch IS Only See Detail ABX Reporting Has patient been on IV antibiotics over the past 48 hours?: No Assessment/Plan - Problem List (1) Acute blood loss anemia Impression: Her hemoglobin is decreasing again this morning is down to 7.3. We will transfuse another unit of packed red blood cell. I reviewed her records from [facility] from just 1 week ago and her hemoglobin on admission was greater than 13. It was less than 10 on discharge. This is most certainly acute blood loss anemia and given her stool is heme positive, the concern is for a GI bleed. Continue to transfuse for goal hemoglobin greater than 7. Plan is for endoscopy today. (2) Heme positive stool Impression: Concern is for a GI bleed as a cause of her acute blood loss anemia. Plan is for endoscopy and colonoscopy today with general surgery. (3) Atrial fibrillation with RVR Impression: Her heart rate has been better controlled on the increased dose of metoprolol. We will continue her on 50 mg twice daily. Continue to monitor on telemetry. (4) Heart failure with preserved ejection fraction Impression: Suspect she may have a mild exacerbation of her heart failure. Her echocardiogram shows ejection fraction 50 to 55%. She has severe tricuspid vegetation and severely abnormal right heart pressures. I reviewed her echocard iogram from [facility] just 1 week ago and it is similar to these findings. Her BNP has increased compared to admission and she has required 2 units of packed red blood cell. She reports improved dyspnea today and she did receive Lasix yesterday. We will give another dose of Lasix IV today and recheck a BNP in the morning. We will also consider repeating a chest x-ray as needed. Qualifiers: Heart failure chronicity: acute on chronic Qualified Code(s): I50.33 - Acute on chronic diastolic (congestive) heart failure (5) Dyspnea Impression: This is likely multifactorial related to her anemia and a component of CHF. She reports this has improved today. She is not hypoxic. We will recheck a BNP tomorrow morning. And will consider a chest x-ray as needed. We will likely give another dose of IV Lasix today after she received another unit of blood. (6) CLL (chronic lymphocytic leukemia) Impression: Her white count is improved today. This is stable overall and she can continue outpatient follow-up. (7) Fecal impaction Impression: She had a large bowel movement today. We will continue with a bowel regimen. Plan is also for colonoscopy today given the heme positive stool and anemia. (8) Hyperlipidemia Impression: Continue statin. (9) Dementia Impression: Stable. Delirium precautions.
[2019-09-27] MEDS: POTASSIUM CHLOR 10 MEQ/100 ML 10 MEQ/100 ML BAG IV SCH ×4 (07:49→16:25)
[2019-09-27] MEDS: SODIUM CHLORIDE FLUSH 0.9% 10 ML SYRINGE IVP SCH ×2 (07:49→17:43)
[2019-09-27] MEDS: polyethylene glycoL 3350 17 GM PACKET PO SCH (08:26)
[2019-09-27] MEDS: SERTRALINE 50 MG TABLET PO SCH (08:27)
[2019-09-27] MEDS: METOPROLOL TARTRATE 25 MG TABLET PO SCH ×2 (08:27→21:20)
[2019-09-27] MEDS: DOCUSATE SODIUM 100 MG CAPSULE PO SCH (08:29)
[2019-09-27] MEDS: MULTIVITAMIN TABLET PO SCH (08:29)
[2019-09-27] MEDS: PANTOPRAZOLE 40 MG VIAL IVP SCH ×2 (08:30→21:07)
--- NOTE | 2019-09-27 15:45 | ANESTHESIA ---
Pre-Anesthesia VS, & Labs - Diagnosis Anemia - Procedure EGD/Colonoscopy Vital Signs: Temp Pulse Resp BP Pulse Ox 36.5 C 95 20 124/87 H 98 09/27/19 15:33 09/27/19 15:33 09/27/19 15:33 09/27/19 15:33 09/27/19 15:33 Height 5 ft 1 in Weight (kg) 52.5 kg Body Mass Index 21.9 - NPO >8 hours - Is Patient ?: No - Lab Results Current Lab Results: Laboratory Tests 09/27/19 04:30: Sodium 141, Potassium 2.7 L, Chloride 108, Carbon Dioxide 24, Anion Gap 9.0, BUN 11, Creatinine 0.5, Estimated GFR (MDRD) 117, Glucose 108 H, Calcium 7.5 L, Phosphorus 3.4, Magnesium 1.9 09/27/19 04:30: WBC 35.9 H*, RBC 2.76 L, Hgb 7.3 L, Hct 24.7 L, MCV 89.5, MCH 26.4 L, MCHC 29.6 L, RDW 16.3 H, Plt Count 197, MPV 10.4, Neut # (Auto) 5.4, Lymph # (Auto) 29.6 H, [place] # (Auto) 0.7, Eos # (Auto) 0.2, Baso # (Auto) 0.0, Absolute Nucleated RBC 0.02, Band Neuts % (Manual) Not Reportable, Abnorm Lymph % (Manual) Not Reportable, Nucleated RBC % 0.1, Neutrophils # (Manual) Not Reportable, Lymphocytes # (Manual) Not Reportable, Monocytes # (Manual) Not R eportable, Eosinophils # (Manual) Not Reportable, Basophils # (Manual) Not Reportable, Differential Comment MANUAL=AUTO DIFF, WBC Morphology 1+ SMUDGE CELLS, Platelet Estimate NORMAL (130-450,000), RBC Morph Micro Appear NORMAL APPEARANCE 09/26/19 08:12: PT 15.0 H, INR 1.3 H 09/26/19 04:45: B-Natriuretic Peptide 926 H 09/26/19 04:45: Sodium 140, Potassium 4.3, Chloride 108, Carbon Dioxide 23, Anion Gap 9.0, BUN 9, Creatinine 0.6, Estimated GFR (MDRD) 95, Glucose 107 H, Calcium 8.2 L 09/26/19 04:45: WBC 55.8 H*, RBC 2.98 L, Hgb 8.1 L, Hct 27.2 L, MCV 91.3, MCH 27.2, MCHC 29.8 L, RDW 15.8 H, Plt Count 224, MPV 10.4, Neut # (Auto) Not Reportable, Lymph # (Auto) Not Reportable, [place] # (Auto) Not Reportable, Eos # (Auto) Not Reportable, Baso # (Auto) Not Reportable, Absolute Nucleated RBC Not Reportable, Total Counted 100, Band Neuts % (Manual) 0, Abnorm Lymph % (Manual) 0, Nucleated RBC % Not Reportable, Neutrophils # (Manual) 6.7 H, Lymphocytes # (Manual) 48.5 H, Monocytes # (Manual) 0.6, Eosinophils # (Manual) 0.0, Basophils # (Manual) 0.0, Differential Comment MANUAL DIFFERENTIAL, WBC Morphology 1+ SMUDGE CELLS, Platelet Estimate NORMAL (130-450,000), RBC Morph Micro Appear NORMAL APPEARANCE 09/25/19 18:20: TSH 2.09 09/25/19 18:20: Troponin I High Sens 28.3 H* 09/25/19 18:20: Hgb 8.5 L, Hct 26.9 L 09/25/19 06:53: Blood Type A POSITIVE, Antibody Screen NEGATIVE, Crossmatch IS Only See Detail 09/25/19 05:23: Sodium 140, Potassium 4.4, Chloride 111, Carbon Dioxide 20 L, Anion Gap 9.0, BUN 14, Creatinine 0.5, Estimated GFR (MDRD) 117, Glucose 120 H, Calcium 7.7 L 09/25/19 05:23: WBC 47.7 H*, RBC 2.44 L, Hgb 6.5 L*, Hct 22.1 L, MCV 90.6, MCH 26.6 L, MCHC 29.4 L, RDW 16.1 H, Plt Count 220, MPV 10.2, Neut # (Auto) Not Reportable, Lymph # (Auto) Not Reportable, [place] # (Auto) Not Reportable, Eos # (Auto) Not Reportable, Baso # (Auto) Not Reportable, Absolute Nucleated RBC Not Reportable, Total Counted 100, Band Neuts % (Manual) 0, Abnorm Lymph % (Manual) 0, Nucleated RBC % Not Reportable, Neutrophils # (Manual) 7.6 H, Lymphocytes # (Manual) 38.6 H, Monocytes # (Manual) 0.5, Eosinophils # (Manual) 1.0 H, Basophils # (Manual) 0.0, Differential Comment MANUAL DIFFERENTIAL, WBC Morphology NORMAL APPEARANCE, Platelet Estimate NORMAL (130-450,000), Platelet Morphology NORMAL APPEARANCE, RBC Morph Micro Appear 2+ HYPOCHROMASIA 09/25/19 05:00: Blood Type Recheck A POSITIVE 09/24/19 05:30: Sodium 140, Potassium 3.4 L, Chloride 107, Carbon Dioxide 24, Anion Gap 9.0, BUN 14, Creatinine 0.5, Estimated GFR (MDRD) 117, Glucose 153 H, Calcium 7.7 L 09/24/19 05:30: WBC 35.7 H*, RBC 2.67 L, Hgb 7.1 L, Hct 23.7 L, MCV 88.8, MCH 26.6 L, MCHC 30.0 L, RDW 16.0 H, Plt Count 219, MPV 10.0, Neut # (Auto) 8.2 H, Lymph # (Auto) 27.0 H, [place] # (Auto) 0.4, Eos # (Auto) 0.0, Baso # (Auto) 0.0, Absolute Nucleated RBC 0.00, Nucleated RBC % 0.0, Manual Slide Review Indicated, Platelet Estimate NORMAL (130-450,000), Platelet Morphology NORMAL APPEARANCE, RBC Morph Micro Appear 2+ HYPOCHROMASIA 09/23/19 16:09: Lactic Acid 1.5 09/23/19 16:09: B-Natriuretic Peptide 503 H 09/23/19 16:09: Troponin I High Sens 38.2 H* 09/23/19 16:09: Sodium 140, Potassium 3.3 L, Chloride 107, Carbon Dioxide 24, Anion Gap 9.0, BUN 19, Creatinine 0.5, Estimated GFR (MDRD) 117, Glucose 194 H, Calcium 7.7 L, Phosphorus 3.3, Magnesium 1.8, Total Bilirubin 0.5, AST 18, ALT 13, Alkaline Phosphatase 58, Total Creatine Kinase 29, Total Protein 5.1 L, Albumin 2.8 L, Globulin 2.3, Albumin/Globulin Ratio 1.2, Lipase 23 09/23/19 16:09: PT 17.3 H, INR 1.6 H 09/23/19 16:09: WBC 40.3 H*, RBC 2.92 L, Hgb 7.9 L, Hct 26.1 L, MCV 89.4, MCH 27.1, MCHC 30.3 L, RDW 16.1 H, Plt Count 233, MPV 10.1, Neut # (Auto) 9.4 H, Lymph # (Auto) 30.2 H, [place] # (Auto) 0.4, Eos # (Auto) 0.0, Baso # (Auto) 0.0, Absolute Nucleated RBC 0.00, Band Neuts % (Manual) Not Reportable, Abnorm Lymph % (Manual) Not Reportable, Nucleated RBC % 0.0, Neutrophils # (Manual) Not Reportable, Lymphocytes # (Manual) Not Reportable, Monocytes # (Manual) Not Reportable, Eosinophils # (Manual) Not Reportable, Basophils # (Manual) Not Reportable, Differential Comment MANUAL=AUTO DIFF, Manual Slide Review Indicated, WBC Morphology 1+ SMUDGE CELLS, Platelet Estimate NORMAL (130- 450,000), Platelet Morphology NORMAL APPEARANCE, RBC Morph Micro Appear 1+ BASO STIPPLING Fish Bones: 09/27/19 04:30 09/27/19 04:30 Home Medications and Allergies Home Medications: Ambulatory Orders Acetaminophen [Tylenol] 650 mg PO Q6H PRN 09/23/19 Aspirin [Aspirin EC] 81 mg PO QPM 09/23/19 Omeprazole 20 mg PO DAILY 09/23/19 Ondansetron HCl [Zofran] 4 mg PO Q6HR PRN 09/23/19 Lovastatin 40 mg PO QPM 09/24/19 Psyllium Husk [Metamucil] 1 gm PO BID 09/24/19 Active Medications Acetaminophen (Tylenol) 650 mg PO Q6H PRN PRN Reason: PAIN Last Admin: 09/26/19 15:46 Dose: 650 mg Documented by: Atorvastatin Calcium (Lipitor) 20 mg PO QPM [facility] Last Admin: 09/26/19 20:47 Dose: 20 mg Documented by: Docusate Sodium (Colace 100mg Capsule) 100 mg PO DAILY [facility] Last Admin: 09/27/19 08:29 Dose: 100 mg Documented by: Metoprolol Tartrate (Lopressor) 50 mg PO BID [facility] Last Admin: 09/27/19 08:27 Dose: 50 mg Documented by: Multivitamins (Theragran) 1 tab PO DAILYWM [facility] Last Admin: 09/27/19 08:29 Dose: 1 tab Documented by: Ondansetron HCl (Zofran Inj) 4 mg IVP Q4HR PRN PRN Reason: Nausea / Vomiting Last Admin: 09/25/19 09:35 Dose: 4 mg Documented by: Pantoprazole Sodium (Protonix) 40 mg IVP BID [facility] Last Admin: 09/27/19 08:30 Dose: 40 mg Documented by: Polyethylene Glycol (Miralax) 17 gm PO DAILY [facility] Last Admin: 09/27/19 08:26 Dose: Not Given Documented by: Quetiapine Fumarate (Seroquel) 50 mg PO QPM [facility] Last Admin: 09/26/19 20:47 Dose: 50 mg Documented by: Sertraline HCl (Zoloft) 200 mg PO DAILY [facility] Last Admin: 09/27/19 08:27 Dose: 200 mg Documented by: Sodium Chloride (Normal Saline Flush 0.9%) 10 ml IVP PRN PRN PRN Reason: NEEDED PER PROVIDER ORDERS Last Admin: 09/27/19 08:39 Dose: 10 ml Documented by: Sodium Chloride (Normal Saline Flush 0.9%) 10 ml IVP 0100,0900,1700 [facility] Last Admin: 09/27/19 07:49 Dose: 10 ml Documented by: Alendronate Sodium 70 mg PO Q7D 06/05/19 Docusate Sodium 100 mg PO DAILY 06/05/19 Furosemide [Lasix] 20 mg PO DAILY PRN 06/05/19 Metoprolol Tartrate 25 mg PO BID 06/05/19 Multivitamin [Multivitamins] 1 cap PO DAILY 06/05/19 Quetiapine Fumarate 50 mg PO QPM 06/05/19 Sertraline HCl 200 mg PO DAILY 06/05/19 Acetaminophen [Tylenol] 650 mg PO Q6H PRN 09/23/19 Aspirin [Aspirin EC] 81 mg PO QPM 09/23/19 Omeprazole 20 mg PO DAILY 09/23/19 Ondansetron HCl [Zofran] 4 mg PO Q6HR PRN 09/23/19 Lovastatin 40 mg PO QPM 09/24/19 Psyllium Husk [Metamucil] 1 gm PO BID 09/24/19 Allergies/Adverse Reactions: Allergies Allergy/AdvReac Type Severity Reaction Status Date / Time No Known Drug Allergies Allergy Verified 09/23/19 15:43 Anes History & Medical History - Anesthetic History Anesthesia Complications: reports: No previous complications - Medical History Cardiovascular: reports: Hypertension, High cholesterol, Atrial fibrillation Pulmonary: reports: None Gastrointestinal: reports: Other Urinary: reports: Incontinence, Frequency Neuro: reports: Dementia Musculoskeletal: reports: Osteoarthritis, Other Endocrine/Autoimmune: reports: None Skin: reports: None Smoking Status: Never smoker Other Past Medical History: 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
[2019-09-27] MEDS ORDERED: LACTATED RINGERS 1,000 ML IV ONE (18:25)
--- NOTE | 2019-09-27 18:48 | ADVANCE CARE PLANNING NOTE ---
Advance Care Planning - Planning Encounter Date: 09/27/19 Time: 14:00 Purpose: To clarify goals of care. Parties in Attendance: The patient and her daughter, Erin. Decisional Capacity of the Patient: She has advanced dementia and is unable to make her own medical decisions. - Diagnosis for Encounter (1) Acute blood loss anemia Summary: Patient was admitted for atrial fibrillation with rapid ventricular response. She was found to have acute blood loss anemia during his hospitalization. She has required 2 units of packed red blood cells. Her stool is heme positive. Reviewing her records at [facility], this is most definite acute blood loss anemia as her hemoglobin was nearly 13 on admission there. Plan is for endoscopy and colonoscopy today. (2) Dementia Summary: Patient has advanced dementia at baseline. She is normally oriented to self and family but not to location or month or year. She resides at [facility]. She has had decline in her functional status over the past 2 weeks given multiple hospitalizations. She is wheelchair-bound at baseline dependent for all her ADLs. - Encounter Subjective/Patient's Story: Patient has been residing at [facility] for the past 3 weeks. She unfortunately has advanced dementia at baseline. Had a functional decline over the past period of time. She usually gets around with just a wheelchair at baseline. She is dependent for all of her ADLs. She was a smoker in the past but is no longer smoking. Objective/Medical Story: She has a history of CLL and was previously seeing oncology. She had this diagnosis for many years and her daughter tells me that she saw her oncologist earlier on this year who told her she does not need to follow-up with them ever again and that her CLL is stable. The patient had an esophageal hernia that was repaired a month ago at [facility]. She required a PEG tube placement for period of time but this was not used for nutrition. This PEG tube was removed about 10 days ago. She was admitted at [facility] a week ago for a trip pa tient with RVR. Imaging at that time showed her hiatal hernia had recurred. She was discharged on the . She was not on anticoagulation for her atrial relation due to history of falls and her advanced dementia. She now presents with acute blood loss anemia that is required 2 units of packed red blood cell. Her stool is heme positive. Family is concerned this may related to her stomach given her recent surgical interventions. Plan is to undergo endoscopy and colonoscopy today for further evaluation of the bleeding. Goals of Care: I had a lengthy discussion with her daughter today regarding goals of care. Her daughter and she stated that the patient did not want any machines or tubes. I went over in detail regarding what entails of CPR including chest compressions and possible defibrillation. I also told her that this usually requires the patient to be intubated as they are unconscious after return of spontaneous circulation. This requires mechanical ventilation and ICU care with multiple IVs and aggressive measures. The daughter then told me that the patient immediately in the past that she would not want the sort of things in the long run but is agreeable to it in the short-term. She would like her mom to have CPR if necessary and is okay with an ICU stay. If there is evidence of anoxic brain injury after a cardiac arrest then she would not want tracheostomy or PEG. Her daughter was upset that her brought up goals of care as she states has now been 2-3 times someone has asked her during this hospitalization and during her recent hospitalization at [facility], she was also asked this multiple times. She is concerned that bring this up multiple times with her mother present will instill thoughts into her and may make her reconsider goals of care. Unfortunately, the patient has advanced dementia and is unable to make her own medical decisions. The daughter did asked the patient at bedside if she would want CPR and the patient shook her head in a "no". Nonetheless, the daughter as mentioned above, stated the patient did want CPR in the short-term but did not want aggressive measures on a long-term basis. Plan: At this time, the patient will remain a full code as per discussion with the daughter. If there is any change in her clinical condition, will discuss goals of care at that time. The plan is to proceed with endoscopy and colonoscopy today as scheduled for her acute blood loss anemia. She has already been accepted to a skilled nurse facility on discharge and once she is medically stable, she will go there for physical therapy. Code Status: Attempt Resuscitation Time spent on advance care plannin
[2019-09-27 19:40] LABS: HGB - HEMOGLOBIN 9.2 g/dL (12.0-16.0)
[2019-09-27] MEDS: DEXTROSE 5%-0.45% NACL 1,000 ML IV SCH (19:44)
[2019-09-27] MEDS ORDERED: polyethylene glycoL 3350 17 GM PACKET PO SCH (20:00)
[2019-09-27] MEDS: QUEtiapine 25 MG TABLET PO SCH (21:07)
[2019-09-27] MEDS: ATORVASTATIN 10 MG TABLET PO SCH (21:07)
[2019-09-27] MEDS: GI COCKTAIL 120 ML BOTTLE PO SCH (21:21)
--- NOTE | 2019-09-27 23:29 | PROVIDER PROGRESS NOTE ---
Progress Note Review of the patient's medical records reveal that the patient had undergone gastropexy with gastrostomy tube as well as hiatal hernia repair. She is admitted with melena/blood per rectum per rectum together with acute blood loss anemia. Please note that during extensive discussion with the patient's daughter as well as the patient, patient had not undergone preoperative upper endoscopy before proceeding with hernia repair. She is status post upper endoscopy late this afternoon. She was simultaneously planned for lower endoscopy as well however was noted for significant retained melanotic stool for which she is not candidate for colonoscopy at this time, will continue prep. However esophagogastroduodenoscopy revealed the following, report was also provided to the hospitalist service both by verbal communication and completed endoscopic report as well: 1. Normal duodenum. 2. Normal stomach significant only for a suture likely at the patient's historic gastrostomy site. 3. Persistent hiatal hernia, large. 4. Severe distal esophagitis for which biopsies were obtained, extensive friability. These findings were specifically discussed with Dr. Marcos Vega, who agreed with the following plan: 1. N.p.o., bowel rest 2. Continue bowel prep given retained stool to rule out occult lower intestinal/colonic source of the patient's significant and persistent acute blood loss anemia 3. Continue PPI gtt. 4. GI cocktail 5. Awaiting pathology 6. Transfuse as necessary I greatly appreciate the hospitalist service allowing me to participate with them in the care of this patient.
[2019-09-28] MEDS: SODIUM CHLORIDE FLUSH 0.9% 10 ML SYRINGE IVP SCH ×3 (00:17→16:45)
[2019-09-28] MEDS ORDERED: MIN OIL/DIMETHICON/COCONUT OIL 92 GM TUBE TOP PRN (05:00)
[2019-09-28 05:04] LABS: BASOPHILS % (AUTO) 0.1 %; HGB - HEMOGLOBIN 8.7 g/dL (12.0-16.0); LYMPHOCYTES % (AUTO) 83.4 %; MEAN CORPUSCULAR HEMOGLOBIN 27.6 pg (27.0-31.0); MEAN CORPUSCULAR HGB CONC 30.2 g/dL (32.0-36.0); MEAN CORPUSCULAR VOLUME 91.4 fL (81.0-99.0); MEAN PLATELET VOLUME 10.3 fL (7.9-10.8); MONOCYTES % (AUTO) 1.8 %; NEUTROPHILS % (AUTO) 13.3 %; PLT - PLATELET COUNT 176 10^3/uL (130-450); RED BLOOD COUNT 3.15 10^6/uL (4.20-5.40); RED CELL DISTRIBUTION WIDTH 16.3 % (12.0-15.0)
[2019-09-28 05:10] LABS: ABNORMAL LYMPHS % (MANUAL) 0 %; BAND NEUTROPHILS % (MANUAL) 0 %
[2019-09-28 05:15] LABS: CALCIUM 7.4 mg/dL (8.5-10.3); CREATININE 0.5 mg/dL (0.4-1.0); MAGNESIUM 1.9 mg/dL (1.7-2.8); PHOSPHORUS 2.9 mg/dL (2.5-4.6)
[2019-09-28 05:38] LABS: LYMPHOCYTES % (MANUAL) 80 %; MONOCYTES # (MANUAL) 0.3 10^3/uL (0.0-1.0); MYELOCYTES % (MANUAL) 1 %
[2019-09-28 05:39] LABS: DIFFERENTIAL COMMENT MANUAL DIFFERENTIAL; PLATELET ESTIMATE, MANUAL NORMAL (130-450,000) (NORMAL); PLATELET MORPHOLOGY NORMAL APPEARANCE (NORMAL)
[2019-09-28] MEDS ORDERED: POTASSIUM CHLOR 10 MEQ/100 ML 10 MEQ/100 ML BAG IV SCH (07:00)
--- NOTE | 2019-09-28 07:16 | PROVIDER PROGRESS NOTE ---
Subjective - Prog Note Date Prog Note Date: 09/28/19 - Subjective Subjective: Denies any dyspnea or chest pain this morning. Also reports no abdominal pain. Nursing reports she had a bowel movement this morning that was dark and tarry. He underwent endoscopy yesterday which showed severe esophagitis. Current Medications - Current Medications Current Medications: Active Medications Acetaminophen (Tylenol) 650 mg PO Q6H PRN PRN Reason: PAIN Last Admin: 09/26/19 15:46 Dose: 650 mg Documented by: Atorvastatin Calcium (Lipitor) 20 mg PO QPM [facility] Last Admin: 09/27/19 21:07 Dose: 20 mg Documented by: Docusate Sodium (Colace 100mg Capsule) 100 mg PO DAILY [facility] Last Admin: 09/28/19 09:37 Dose: 100 mg Documented by: Dextrose/Sodium Chloride (D5.45ns) 1,000 mls @ 75 mls/hr IV .[id number] [facility] Last Admin: 09/28/19 10:10 Dose: Not Given Documented by: Metoprolol Tartrate (Lopressor) 25 mg PO BID [facility] Last Admin: 09/28/19 09:36 Dose: 25 mg Documented by: Mineral Oil (Cavilon) 1 applic TOP PRN PRN PRN Reason: Skin Care Multi-Ingredient Mouthwash/Gargle () 30 ml PO BID [facility] Last Admin: 09/28/19 09:37 Dose: 30 ml Documented by: Multivitamins (Theragran) 1 tab PO DAILYWM [facility] Last Admin: 09/28/19 09:37 Dose: 1 tab Documented by: Ondansetron HCl (Zofran Inj) 4 mg IVP Q4HR PRN PRN Reason: Nausea / Vomiting Last Admin: 09/25/19 09:35 Dose: 4 mg Documented by: Pantoprazole Sodium (Protonix) 40 mg IVP BID [facility] Last Admin: 09/28/19 08:49 Dose: 40 mg Documented by: Polyethylene Glycol (Miralax) 17 gm PO DAILY [facility] Last Admin: 09/28/19 09:37 Dose: 17 gm Documented by: Polyethylene Glycol (Miralax) 17 gm PO ONCE [facility] Stop: 09/28/19 19:59 Last Admin: 09/27/19 21:06 Dose: 17 gm Documented by: Potassium Chloride () 20 meq PO DAILYWM [facility] Last Admin: 09/28/19 09:36 Dose: 20 meq Documented by: Quetiapine Fumarate (Seroquel) 50 mg PO QPM [facility] Last Admin: 09/27/19 21:07 Dose: 50 mg Documented by: Sertraline HCl (Zoloft) 200 mg PO DAILY [facility] Last Admin: 09/28/19 09:36 Dose: 200 mg Documented by: Sodium Chloride (Normal Saline Flush 0.9%) 10 ml IVP PRN PRN PRN Reason: NEEDED PER PROVIDER ORDERS Last Admin: 09/27/19 21:07 Dose: 10 ml Documented by: Sodium Chloride (Normal Saline Flush 0.9%) 10 ml IVP 0100,0900,1700 [facility] Last Admin: 09/28/19 08:49 Dose: 10 ml Documented by: Alendronate Sodium 70 mg PO Q7D 06/05/19 Docusate Sodium 100 mg PO DAILY 06/05/19 Furosemide [Lasix] 20 mg PO DAILY PRN 06/05/19 Metoprolol Tartrate 25 mg PO BID 06/05/19 Multivitamin [Multivitamins] 1 cap PO DAILY 06/05/19 Quetiapine Fumarate 50 mg PO QPM 06/05/19 Sertraline HCl 200 mg PO DAILY 06/05/19 Acetaminophen [Tylenol] 650 mg PO Q6H PRN 09/23/19 Aspirin [Aspirin EC] 81 mg PO QPM 09/23/19 Omeprazole 20 mg PO DAILY 09/23/19 Ondansetron HCl [Zofran] 4 mg PO Q6HR PRN 09/23/19 Lovastatin 40 mg PO QPM 09/24/19 Psyllium Husk [Metamucil] 1 gm PO BID 09/24/19 Objective - Vital Signs/Intake & Output Reviewed Vital Signs: Yes Vital Signs: Vital Signs x48h Temp Pulse Resp BP Pulse Ox 09/28/19 05:31 36.2 C L 09/28/19 05:16 92 16 97/51 L 93 09/28/19 04:11 35.8 C L 83 16 85/48 L 92 09/28/19 00:11 36.4 C L 90 20 91/50 L 96 Intake & Output: Intake & Output 09/25/19 09/26/19 09/27/19 09/28/19 23:59 23:59 23:59 23:59 Intake Total 3115 0 1500.0 743.75 Output Total 850 2150 300 Balance 2265 -2150 1200.0 743.75 - Objective General Appearance: positive: No acute distress, Alert Eyes Bilateral: positive: Normal inspection, Conjunctivae nml ENT: positive: ENT inspection nml Neck: positive: Nml inspection Respiratory: positive: No respiratory distress. negative: Wheezes, Rales Cardiovascular: positive: Irregularly irregular. negative: Tachycardia, Bradycardia, Systolic murmur Abdomen: positive: Non-tender, No distention. negative: Tenderness Skin: positive: Warm, Dry Extremities: positive: Pedal edema (Trace pitting edema in the bilateral lower extremities.) Neurologic/Psychiatric: positive: Disoriented to place, Disoriented to time, Other (No focal deficits on exam.). negative: Disoriented to person - Lab Results Fish Bones: 09/28/19 04:25 09/28/19 04:25 Other Labs: Lab Results x24hrs 09/28/19 09/28/19 09/28/19 Range/Units 04:25 04:25 04:25 WBC 30.0 H (4.8-10.8) x10^3/uL RBC 3.15 L (4.20-5.40) 10^6/uL Hgb 8.7 L (12.0-16.0) g/dL Hct 28.8 L (37.0-47.0) % MCV 91.4 (81.0-99.0) fL MCH 27.6 (27.0-31.0) pg MCHC 30.2 L (32.0-36.0) g/dL RDW 16.3 H (12.0-15.0) % Plt Count 176 (130-450) 10^3/uL MPV 10.3 (7.9-10.8) fL Neut # (Auto) Not Reportable Lymph # (Auto) Not Reportable Osborne # (Auto) Not Reportable Eos # (Auto) Not Reportable Baso # (Auto) Not Reportable Absolute Nucleated RBC Not Reportable Total Counted 100 Band Neuts % (Manual) 0 (0 - 10) % Abnorm Lymph % (Manual) 0 % Myelocytes % 1 H ( - 0) % Nucleated RBC % Not Reportable Neutrophils # (Manual) 5.4 (1.5-6.6) 10^3/uL Lymphocytes # (Manual) 24.0 H (1.5-3.5) 10^3/uL Monocytes # (Manual) 0.3 (0.0-1.0) 10^3/uL Eosinophils # (Manual) 0.0 (0-0.7) 10^3/uL Basophils # (Manual) 0.0 (0-0.1) 10^3/uL Differential Comment MANUAL DIFFERENTIAL WBC Morphology 2+ SMUDGE CELLS (NORMAL) Platelet Estimate NORMAL (130-450,000) (NORMAL) Platelet Morphology NORMAL APPEARANCE (NORMAL) RBC Morph Micro Appear 1+ POLYCHROMASIA (NORMAL) Sodium 139 (135-145) mmol/L Potassium 2.6 L (3.5-5.0) mmol/L Chloride 108 (101-111) mmol/L Carbon Dioxide 23 (21-32) mmol/L Anion Gap 8.0 (6-13) BUN 10 (6-20) mg/dL Creatinine 0.5 (0.4-1.0) mg/dL Estimated GFR (MDRD) 117 (>89) Glucose 118 H (70-100) mg/dL Calcium 7.4 L (8.5-10.3) mg/dL Phosphorus 2.9 (2.5-4.6) mg/dL Magnesium 1.9 (1.7-2.8) mg/dL B-Natriuretic Peptide 928 H (5-100) pg/mL Blood Type Antibody Screen Crossmatch IS Only 09/27/19 09/25/19 Range/Units 19:35 06:53 WBC (4.8-10.8) x10^3/uL RBC (4.20-5.40) 10^6/uL Hgb 9.2 L (12.0-16.0) g/dL Hct 30.4 L (37.0-47.0) % MCV (81.0-99.0) fL MCH (27.0-31.0) pg MCHC (32.0-36.0) g/dL RDW (12.0-15.0) % Plt Count (130-450) 10^3/uL MPV (7.9-10.8) fL Neut # (Auto) Lymph # (Auto) Osborne # (Auto) Eos # (Auto) Baso # (Auto) Absolute Nucleated RBC Total Counted Band Neuts % (Manual) (0 - 10) % Abnorm Lymph % (Manual) % Myelocytes % ( - 0) % Nucleated RBC % Neutrophils # (Manual) (1.5-6.6) 10^3/uL Lymphocytes # (Manual) (1.5-3.5) 10^3/uL Monocytes # (Manual) (0.0-1.0) 10^3/uL Eosinophils # (Manual) (0-0.7) 10^3/uL Basophils # (Manual) (0-0.1) 10^3/uL Differential Comment WBC Morphology (NORMAL) Platelet Estimate (NORMAL) Platelet Morphology (NORMAL) RBC Morph Micro Appear (NORMAL) Sodium (135-145) mmol/L Potassium (3.5-5.0) mmol/L Chloride (101-111) mmol/L Carbon Dioxide (21-32) mmol/L Anion Gap (6-13) BUN (6-20) mg/dL Creatinine (0.4-1.0) mg/dL Estimated GFR (MDRD) (>89) Glucose (70-100) mg/dL Calcium (8.5-10.3) mg/dL Phosphorus (2.5-4.6) mg/dL Magnesium (1.7-2.8) mg/dL B-Natriuretic Peptide (5-100) pg/mL Blood Type A POSITIVE Antibody Screen NEGATIVE Crossmatch IS Only See Detail ABX Reporting Has patient been on IV antibiotics over the past 48 hours?: No Assessment/Plan - Problem List (1) Acute blood loss anemia Impression: This is likely secondary to the esophagitis. She has required 2 units of packed red blood cells during this hospitalization. She responded well to the latest transfusion yesterday but her hemoglobin is trending down and there continues to still be evidence of bleeding. She will need to be monitored closely for further hemorrhage. We will recheck her hemoglobin this evening and the following morning. SCDs for DVT prophylaxis. No pharmacologic DVT prophylaxis due to the GI bleed. (2) Esophagitis Impression: This is a likely cause of her acute blood loss anemia. Endoscopy yesterday showed severe esophagitis. She is on Fosamax at home. Biopsies were obtained and are pending. Surgery is recommended to keep her n.p.o. for the time being. We will continue the patient on Protonix 40 mg IV twice daily. We will start her empirically on Diflucan for Nichelle esophagitis. She has been started on GI cocktail. We will also start her on Carafate. Continue D5/half-normal saline given she is n.p.o.. Her Fosamax will need to be discontinued on discharge. She can be started on zoledronic acid on an outpatient basis for her osteoporosis. (3) Atrial fibrillation with RVR Impression: Her heart rate has been better controlled on increased dose of metoprolol. Her pressures have been a little bit on the softer side. We will continue her current dose of metoprolol and monitor her blood pressure closely. Continue telemetry. (4) CLL (chronic lymphocytic leukemia) Impression: Stable. She can continue outpatient follow-up. (5) Heart failure with preserved ejection fraction Impression: This no longer appears to be an exacerbation. She is not hypoxic or tachypneic. Her BNP is elevated in the 900s but clinically she does not have evidence of heart failure at this time. We will hold off on diuresis given her soft blood pressures and the fact that she is n.p.o. Qualifiers: Heart failure chronicity: chronic Qualified Code(s): I50.32 - Chronic diastolic (congestive) heart failure (6) Hyperlipidemia Impression: Continue statin. (7) Hypertension Impression: She has had occasional borderline soft blood pressures. We will continue her on her current dose of metoprolol and monitor closely. (8) Dementia Impression: Stable and at her baseline.
[2019-09-28] MEDS: POTASSIUM CHLOR 10 MEQ/100 ML 10 MEQ/100 ML BAG IV SCH ×4 (08:47→12:46)
[2019-09-28] MEDS: PANTOPRAZOLE 40 MG VIAL IVP SCH ×2 (08:49→21:27)
[2019-09-28] MEDS ORDERED: METOPROLOL TARTRATE 25 MG TABLET PO SCH (09:00)
[2019-09-28] MEDS: SERTRALINE 50 MG TABLET PO SCH (09:36)
[2019-09-28] MEDS: DOCUSATE SODIUM 100 MG CAPSULE PO SCH ×2 (09:36→09:37)
[2019-09-28] MEDS: POTASSIUM CHLORIDE 20 MEQ/15 ML UDC PO SCH (09:36)
[2019-09-28] MEDS: polyethylene glycoL 3350 17 GM PACKET PO SCH (09:37)
[2019-09-28] MEDS: GI COCKTAIL 120 ML BOTTLE PO SCH ×2 (09:37→22:11)
[2019-09-28] MEDS: MULTIVITAMIN TABLET PO SCH (09:37)
[2019-09-28] MEDS: DEXTROSE 5%-0.45% NACL 1,000 ML IV SCH ×2 (10:10→13:49)
[2019-09-28] MEDS: FLUCONAZOLE 200 MG/100 ML 100 ML IV SCH ×2 (14:22→15:41)
[2019-09-28] MEDS: SUCRALFATE 1 GM/10 ML UDC PO SCH ×2 (16:45→22:14)
[2019-09-28 17:06] LABS: HGB - HEMOGLOBIN 9.5 g/dL (12.0-16.0)
--- NOTE | 2019-09-28 20:33 | PROVIDER PROGRESS NOTE ---
Progress Note Postoperative day #1 status post upper endoscopy with findings as per EMR. Plan colonoscopy today deferred secondary to persistent melanotic stool. Stooling: Several times per week Pain: [Denies] Bleeding: Has become melanotic recently Appetite: Decreased Weight loss/gain: Significant Notable surgery history: Patient had undergone recent hiatal hernia repair with gastropexy by gastrostomy tube placement for text Abdomen soft nontender nondistended no rebound or guarding. Labs reviewed and plan of care discussed with hospital service. 84-year-old female status post recent hiatal hernia repair with gastropexy who presents with significant of acute blood loss anemia necessitating multiple transfer units of packed cells. Dementia. Failure to thrive with significant protein loss malnutrition. Noted on upper endoscopy for severe esophagitis. Pathology pending. Plan to place NG tube, weighted, for bowel prep which she is not been able to tolerate and enteral feeds towards nutritional optimization and avoiding p.o. intake in the setting of her esophagitis. Also recommended beginning Diflucan empirically. Carafate. And continued PPI 1. Continue through care with hospitalist service 2. Place weighted feeding tube for bowel prep in anticipation of colonoscopy to completely rule out occult source for gastrointestinal bleed 3. Bowel prep by way of weighted NG tube, placement films ordered. 4. Upper endoscopy has already noted significant and extensive gastroesophageal junctional and distal esophageal inflammation consistent with esophagitis, possibly Nichelle, with significant contributing reflux esophagitis. This is the likely source, but will proceed with colonoscopy however given significance of her acute blood loss anemia. 5. Aggressive resuscitation 6. Plan tube feeds with bowel rest, nutrition is already ordered these in anticipation of resuming enteral intake following colonoscopy. 7. Bowel rest and nasogastric tube feeds 8. PPI infusion and consider Carafate pending results
[2019-09-28] MEDS: SODIUM CHLORIDE FLUSH 0.9% 10 ML SYRINGE IVP PRN (21:27)
--- NOTE | 2019-09-28 21:30 | XRAY Report ---
PROCEDURE: Abdomen 1 View X-Ray INDICATIONS: Weighted NG tube placement TECHNIQUE: 1 view of the abdomen were acquired. COMPARISON: CT abdomen and pelvis 09/23/2019 FINDINGS: Surgical changes and devices: Weighted NG tube is present in the distal stomach. Bowel: Not well evaluated due to technique. Bones: Lower lumbar fusion hardware. IMPRESSION: Weighted NG tube is present in the distal stomach. Reviewed by: Juancho Ybarra MD on 09/28/2019 9:29 PM PDT Approved by: Juancho Ybarra MD on 09/28/2019 9:29 PM PDT Station ID: [id number]
--- NOTE | 2019-09-28 21:31 | XRAY Report ---
PROCEDURE: Chest 1 View X-Ray INDICATIONS: weighted ngt feeding tube TECHNIQUE: One view of the chest was acquired. COMPARISON: None FINDINGS: Surgical changes and devices: Weighted NG tube is present in the stomach. Lungs and pleura: Bilateral pleural effusions and basilar airspace opacities. Mediastinum: Mediastinal contours appear normal. Heart size appears enlarged. IMPRESSION: Weighted NG tube is present in the stomach, tip seen on comparison of bowel radiograph. Bilateral pleural effusions and overlying airspace opacity. Reviewed by: Juancho Ybarra MD on 09/28/2019 9:30 PM PDT Approved by: Juancho Ybarra MD on 09/28/2019 9:30 PM PDT Station ID: [id number]
[2019-09-28] MEDS: ATORVASTATIN 10 MG TABLET PO SCH (22:11)
[2019-09-28] MEDS: QUEtiapine 25 MG TABLET PO SCH (22:11)
[2019-09-28] MEDS: METOPROLOL TARTRATE 50 MG TABLET PO SCH (22:15)
[2019-09-29] MEDS ORDERED: PEG 3350/NA SULF,BICARB,CL/KCL 4,000 ML BOTTLE PO ONE (01:06)
[2019-09-29] MEDS: SODIUM CHLORIDE FLUSH 0.9% 10 ML SYRINGE IVP SCH ×3 (01:09→16:04)
[2019-09-29] MEDS: SUCRALFATE 1 GM/10 ML UDC PO SCH ×3 (04:31→16:04)
[2019-09-29] MEDS: DEXTROSE 5%-0.45% NACL 1,000 ML IV SCH ×2 (04:31→13:21)
[2019-09-29 06:00] LABS: BASOPHILS # (AUTO) 0.1 10^3/uL (0.0-0.1); BASOPHILS % (AUTO) 0.1 %; EOSINOPHILS # (AUTO) 0.2 10^3/uL (0.0-0.7); EOSINOPHILS % (AUTO) 0.5 %; HGB - HEMOGLOBIN 9.3 g/dL (12.0-16.0); LYMPHOCYTES # (AUTO) 33.7 10^3/uL (1.5-3.5); MEAN CORPUSCULAR HEMOGLOBIN 27.3 pg (27.0-31.0); MEAN CORPUSCULAR VOLUME 90.9 fL (81.0-99.0); MEAN PLATELET VOLUME 10.2 fL (7.9-10.8); MONOCYTES # (AUTO) 0.7 10^3/uL (0.0-1.0); MONOCYTES % (AUTO) 1.8 %; NEUTROPHILS # (AUTO) 5.3 10^3/uL (1.5-6.6); NEUTROPHILS % (AUTO) 13.2 %; PLT - PLATELET COUNT 205 10^3/uL (130-450); RED BLOOD COUNT 3.41 10^6/uL (4.20-5.40); RED CELL DISTRIBUTION WIDTH 16.9 % (12.0-15.0)
[2019-09-29 06:02] LABS: WHITE BLOOD COUNT 40.1 x10^3/uL (4.8-10.8)
[2019-09-29 06:11] LABS: CALCIUM 7.6 mg/dL (8.5-10.3); CREATININE 0.6 mg/dL (0.4-1.0); MAGNESIUM 1.9 mg/dL (1.7-2.8); PHOSPHORUS 2.5 mg/dL (2.5-4.6)
[2019-09-29 06:22] LABS: PLATELET ESTIMATE, MANUAL NORMAL (130-450,000) (NORMAL); PLATELET MORPHOLOGY NORMAL APPEARANCE (NORMAL)
[2019-09-29 06:24] LABS: ALBUMIN 2.5 g/dL (3.2-5.5)
--- NOTE | 2019-09-29 07:31 | PROVIDER PROGRESS NOTE ---
Subjective - Prog Note Date Prog Note Date: 09/29/19 - Subjective Subjective: Continues to report feeling well. Denies any chest pain or dyspnea. Dobbhoff was placed yesterday by general surgery. Her hemoglobin has remained stable overnight. Continues to have black tarry stools. Current Medications - Current Medications Current Medications: Active Medications Acetaminophen (Tylenol) 650 mg PO Q6H PRN PRN Reason: PAIN Last Admin: 09/26/19 15:46 Dose: 650 mg Documented by: Atorvastatin Calcium (Lipitor) 20 mg PO QPM [facility] [place] Last Admin: 09/28/19 22:11 Dose: 20 mg Documented by: Docusate Sodium (Colace 100mg Capsule) 100 mg PO DAILY [facility] [place] Last Admin: 09/28/19 09:37 Dose: 100 mg Documented by: Dextrose/Sodium Chloride (D5.45ns) 1,000 mls @ 75 mls/hr IV .[id number] [facility] Last Admin: 09/29/19 13:21 Dose: 75 mls/hr Documented by: Fluconazole (Diflucan 200 Mg/100 Ml) 100 mls @ 100 mls/hr IV DAILY [facility] [place] Last Infusion: 09/29/19 11:48 Dose: Infused Documented by: Metoprolol Tartrate (Lopressor) 50 mg PO BID [facility] [place] Last Admin: 09/29/19 10:33 Dose: 50 mg Documented by: Mineral Oil (Cavilon) 1 applic TOP PRN PRN PRN Reason: Skin Care Multi-Ingredient Mouthwash/Gargle () 30 ml PO BID [facility] [place] Last Admin: 09/29/19 10:34 Dose: 30 ml Documented by: Multivitamins (Theragran) 1 tab PO DAILYWM [facility] [place] Last Admin: 09/29/19 10:33 Dose: 1 tab Documented by: Ondansetron HCl (Zofran Inj) 4 mg IVP Q4HR PRN PRN Reason: Nausea / Vomiting Last Admin: 09/25/19 09:35 Dose: 4 mg Documented by: Pantoprazole Sodium (Protonix) 40 mg IVP BID [facility] [place] Last Admin: 09/29/19 10:34 Dose: 40 mg Documented by: Polyethylene Glycol (Miralax) 17 gm PO DAILY [facility] [place] Last Admin: 09/29/19 07:49 Dose: Not Given Documented by: Potassium Chloride () 20 meq PO DAILYWM [facility] Last Admin: 09/29/19 10:34 Dose: 20 meq Documented by: Quetiapine Fumarate (Seroquel) 50 mg PO QPM [facility] [place] Last Admin: 09/28/19 22:11 Dose: 50 mg Documented by: Sertraline HCl (Zoloft) 200 mg PO DAILY [facility] [place] Last Admin: 09/29/19 10:33 Dose: 200 mg Documented by: Sodium Chloride (Normal Saline Flush 0.9%) 10 ml IVP PRN PRN PRN Reason: NEEDED PER PROVIDER ORDERS Last Admin: 09/28/19 21:27 Dose: 10 ml Documented by: Sodium Chloride (Normal Saline Flush 0.9%) 10 ml IVP 0100,0900,1700 [facility] [place] Last Admin: 09/29/19 16:04 Dose: Not Given Documented by: Sucralfate (Carafate) 1 gm PO 0700,1100,1600,2200 [facility] [place] Last Admin: 09/29/19 16:04 Dose: 1 gm Documented by: Alendronate Sodium 70 mg PO Q7D 06/05/19 Docusate Sodium 100 mg PO DAILY 06/05/19 Furosemide [Lasix] 20 mg PO DAILY PRN 06/05/19 Metoprolol Tartrate 25 mg PO BID 06/05/19 Multivitamin [Multivitamins] 1 cap PO DAILY 06/05/19 Quetiapine Fumarate 50 mg PO QPM 06/05/19 Sertraline HCl 200 mg PO DAILY 06/05/19 Acetaminophen [Tylenol] 650 mg PO Q6H PRN 09/23/19 Aspirin [Aspirin EC] 81 mg PO QPM 09/23/19 Omeprazole 20 mg PO DAILY 09/23/19 Ondansetron HCl [Zofran] 4 mg PO Q6HR PRN 09/23/19 Lovastatin 40 mg PO QPM 09/24/19 Psyllium Husk [Metamucil] 1 gm PO BID 09/24/19 Objective - Vital Signs/Intake & Output Reviewed Vital Signs: Yes Vital Signs: Vital Signs x48h Temp Pulse Resp BP BP Pulse Ox 09/29/19 04:32 36.8 C 73 16 113/73 95 09/28/19 23:56 36.6 C 99 16 103/52 L 95 Intake & Output: Intake & Output 09/26/19 09/27/19 09/28/19 09/29/19 23:59 23:59 23:59 23:59 Intake Total 0 1500.0 1703.00 1056.25 Output Total 2150 300 Balance -2150 1200.0 1703.00 1056.25 - Objective General Appearance: positive: No acute distress, Alert Eyes Bilateral: positive: Normal inspection, Conjunctivae nml ENT: positive: ENT inspection nml, Other (Dobhoff in place.) Neck: positive: Nml inspection Respiratory: positive: No respiratory distress. negative: Wheezes, Rales Cardiovascular: positive: Irregularly irregular. negative: Tachycardia, Bradycardia, Systolic murmur Abdomen: positive: Non-tender, No distention. negative: Tenderness Skin: positive: Warm, Dry Extremities: positive: Pedal edema (Trace pitting edema in bilateral lower extremities.) Neurologic/Psychiatric: positive: Disoriented to time, Other (No focal deficits on exam.). negative: Disoriented to person, Disoriented to place - Lab Results Fish Bones: 09/29/19 05:49 09/29/19 05:49 Other Labs: Lab Results x24hrs 09/29/19 09/29/19 09/29/19 Range/Units 05:49 05:49 05:49 WBC 40.1 H* (4.8-10.8) x10^3/uL RBC 3.41 L (4.20-5.40) 10^6/uL Hgb 9.3 L (12.0-16.0) g/dL Hct 31.0 L (37.0-47.0) % MCV 90.9 (81.0-99.0) fL MCH 27.3 (27.0-31.0) pg MCHC 30.0 L (32.0-36.0) g/dL RDW 16.9 H (12.0-15.0) % Plt Count 205 (130-450) 10^3/uL MPV 10.2 (7.9-10.8) fL Neut # (Auto) 5.3 (1.5-6.6) 10^3/uL Lymph # (Auto) 33.7 H (1.5-3.5) 10^3/uL Hitchcock # (Auto) 0.7 (0.0-1.0) 10^3/uL Eos # (Auto) 0.2 (0.0-0.7) 10^3/uL Baso # (Auto) 0.1 (0.0-0.1) 10^3/uL Absolute Nucleated RBC 0.02 x10^3/uL Nucleated RBC % 0.0 /100WBC Manual Slide Review Indicated Platelet Estimate NORMAL (130-450,000) (NORMAL) Platelet Morphology NORMAL APPEARANCE (NORMAL) RBC Morph Micro Appear 1+ POLYCHROMASIA (NORMAL) Sodium 134 L (135-145) mmol/L Potassium 3.7 (3.5-5.0) mmol/L Chloride 106 (101-111) mmol/L Carbon Dioxide 22 (21-32) mmol/L Anion Gap 6.0 (6-13) BUN 9 (6-20) mg/dL Creatinine 0.6 (0.4-1.0) mg/dL Estimated GFR (MDRD) 95 (>89) Glucose 138 H (70-100) mg/dL Calcium 7.6 L (8.5-10.3) mg/dL Phosphorus 2.5 (2.5-4.6) mg/dL Magnesium 1.9 (1.7-2.8) mg/dL AST 19 (10-42) IU/L ALT 11 (10-60) IU/L Alkaline Phosphatase 64 (42-121) IU/L Albumin 2.5 L (3.2-5.5) g/dL Prealbumin 10 L (18-45) mg/dL 09/28/19 Range/Units 17:00 WBC (4.8-10.8) x10^3/uL RBC (4.20-5.40) 10^6/uL Hgb 9.5 L (12.0-16.0) g/dL Hct 32.0 L (37.0-47.0) % MCV (81.0-99.0) fL MCH (27.0-31.0) pg MCHC (32.0-36.0) g/dL RDW (12.0-15.0) % Plt Count (130-450) 10^3/uL MPV (7.9-10.8) fL Neut # (Auto) (1.5-6.6) 10^3/uL Lymph # (Auto) (1.5-3.5) 10^3/uL Hitchcock # (Auto) (0.0-1.0) 10^3/uL Eos # (Auto) (0.0-0.7) 10^3/uL Baso # (Auto) (0.0-0.1) 10^3/uL Absolute Nucleated RBC x10^3/uL Nucleated RBC % /100WBC Manual Slide Review Platelet Estimate (NORMAL) Platelet Morphology (NORMAL) RBC Morph Micro Appear (NORMAL) Sodium (135-145) mmol/L Potassium (3.5-5.0) mmol/L Chloride (101-111) mmol/L Carbon Dioxide (21-32) mmol/L Anion Gap (6-13) BUN (6-20) mg/dL Creatinine (0.4-1.0) mg/dL Estimated GFR (MDRD) (>89) Glucose (70-100) mg/dL Calcium (8.5-10.3) mg/dL Phosphorus (2.5-4.6) mg/dL Magnesium (1.7-2.8) mg/dL AST (10-42) IU/L ALT (10-60) IU/L Alkaline Phosphatase (42-121) IU/L Albumin (3.2-5.5) g/dL Prealbumin (18-45) mg/dL ABX Reporting Has patient been on IV antibiotics over the past 48 hours?: No Assessment/Plan - Problem List (1) Esophagitis Impression: This is a likely source of her GI bleed and acute blood loss anemia. This was evident on EGD on September 26. Continues to have dark tarry stool. We have started her on Diflucan empirically for possible Nichelle esophagitis. She remains on Protonix IV and Carafate. She is strictly n.p.o. with a Dobbhoff in place. We will keep her n.p.o. over the weekend and will likely start her on a diet as tolerated on Tuesday. We will place her on tube feeds for the time being. She will need to be monitored to ensure that bleeding does not return as she had severe esophagitis. We will follow-up biopsy results. (2) Acute blood loss anemia Impression: Hemoglobin appears to be stabilizing over the past 24 hours. She is not required any further transfusions. She does continue to have black tarry stools. We will continue to trend her hemoglobin every 12 hours and transfuse as needed. Plan is for colonoscopy today to ensure there are no other obvious sources of bleeding except for the esophagitis. (3) Atrial fibrillation with RVR Impression: Heart rate has been well controlled on her current dose of metoprolol which we will continue. Continue to monitor on telemetry. (4) Heart failure with preserved ejection fraction Impression: Stable and not in exacerbation. We will continue to monitor this closely she is receiving IV fluids and blood products. She did require intermittent diuresis earlier on during this hospitalization. Qualifiers: Heart failure chronicity: chronic Qualified Code(s): I50.32 - Chronic diastolic (congestive) heart failure (5) CLL (chronic lymphocytic leukemia) Impression: Stable. She no longer follows up with oncology. She can continue outpatient follow-up with her primary care physician. (6) Hyperlipidemia Impression: Continue home statin. (7) Hypertension Impression: This has been well controlled on her current dose of metoprolol. (8) Dementia Impression: Stable and at baseline.
[2019-09-29] MEDS: polyethylene glycoL 3350 17 GM PACKET PO SCH (07:49)
--- NOTE | 2019-09-29 08:23 | ANESTHESIA ---
Pre-Anesthesia VS, & Labs - Diagnosis Diagnosis Gastrointestinal bleed Acute blood loss anemia Recent foregut surgery including hiatal hernia repair Dementia Status post blood transfusion Atrial fibrillation History of CLL - Procedure colonoscopy Vital Signs: Temp Pulse Resp BP Pulse Ox 36.7 C 74 16 115/64 94 09/29/19 07:48 09/29/19 07:48 09/29/19 07:48 09/29/19 07:48 09/29/19 07:48 Height 5 ft 1 in Weight (kg) 56.5 kg Body Mass Index 21.9 - Is Patient ?: No - Lab Results Current Lab Results: Laboratory Tests 09/29/19 05:49: AST 19, ALT 11, Alkaline Phosphatase 64, Albumin 2.5 L, Prealbumin 10 L 09/29/19 05:49: Sodium 134 L, Potassium 3.7, Chloride 106, Carbon Dioxide 22, Anion Gap 6.0, BUN 9, Creatinine 0.6, Estimated GFR (MDRD) 95, Glucose 138 H, Calcium 7.6 L, Phosphorus 2.5, Magnesium 1.9 09/29/19 05:49: WBC 40.1 H*, RBC 3.41 L, Hgb 9.3 L, Hct 31.0 L, MCV 90.9, MCH 27.3, MCHC 30.0 L, RDW 16.9 H, Plt Count 205, MPV 10.2, Neut # (Auto) 5.3, Lymph # (Auto) 33.7 H, [place] # (Auto) 0.7, Eos # (Auto) 0.2, Baso # (Auto) 0.1, Absolute Nucleated RBC 0.02, Nucleated RBC % 0.0, Manual Slide Review Indicated, Platelet Estimate NORMAL (130-450,000), Platelet Morphology NORMAL APPEARANCE, RBC Morph Micro Appear 1+ POLYCHROMASIA 09/28/19 17:00: Hgb 9.5 L, Hct 32.0 L 09/28/19 04:25: B-Natriuretic Peptide 928 H 09/28/19 04:25: Sodium 139, Potassium 2.6 L, Chloride 108, Carbon Dioxide 23, Anion Gap 8.0, BUN 10, Creatinine 0.5, Estimated GFR (MDRD) 117, Glucose 118 H, Calcium 7.4 L, Phosphorus 2.9, Magnesium 1.9 09/28/19 04:25: WBC 30.0 H, RBC 3.15 L, Hgb 8.7 L, Hct 28.8 L, MCV 91.4, MCH 27.6, MCHC 30.2 L, RDW 16.3 H, Plt Count 176, MPV 10.3, Neut # (Auto) Not Reportable, Lymph # (Auto) Not Reportable, [place] # (Auto) Not Reportable, Eos # (Auto) Not Reportable, Baso # (Auto) Not Reportable, Absolute Nucleated RBC Not Reportable, Total Counted 100, Band Neuts % (Manual) 0, Abnorm Lymph % (Manual) 0, Myelocytes % 1 H, Nucleated RBC % Not Reportable, Neutrophils # (Manual) 5.4, Lymphocytes # (Manual) 24.0 H, Monocytes # (Manual) 0.3, Eosinophils # (Manual) 0.0, Basophils # (Manual) 0.0, Differential Comment MANUAL DIFFERENTIAL, WBC Morphology 2+ SMUDGE CELLS, Platelet Estimate NORMAL (130-450,000), Platelet Morphology NORMAL APPEARANCE, RBC Morph Micro Appear 1+ POLYCHROMASIA 09/27/19 19:35: Hgb 9.2 L, Hct 30.4 L 09/27/19 04:30: Sodium 141, Potassium 2.7 L, Chloride 108, Carbon Dioxide 24, Anion Gap 9.0, BUN 11, Creatinine 0.5, Estimated GFR (MDRD) 117, Glucose 108 H, Calcium 7.5 L, Phosphorus 3.4, Magnesium 1.9 09/27/19 04:30: WBC 35.9 H*, RBC 2.76 L, Hgb 7.3 L, Hct 24.7 L, MCV 89.5, MCH 26.4 L, MCHC 29.6 L, RDW 16.3 H, Plt Count 197, MPV 10.4, Neut # (Auto) 5.4, Lymph # (Auto) 29.6 H, [place] # (Auto) 0.7, Eos # (Auto) 0.2, Baso # (Auto) 0.0, Absolute Nucleated RBC 0.02, Band Neuts % (Manual) Not Reportable, Abnorm Lymph % (Manual) Not Reportable, Nucleated RBC % 0.1, Neutrophils # (Manual) Not Reportable, Lymphocytes # (Manual) Not Reportable, Monocytes # (Manual) Not Reportable, Eosinophils # (Manual) Not Reportable, Basophils # (Manual) Not Reportable, Differential Comment MANUAL=AUTO DIFF, WBC Morphology 1+ SMUDGE CELLS, Platelet Estimate NORMAL (130-450,000), RBC Morph Micro Appear NORMAL APPEARANCE 09/26/19 08:12: PT 15.0 H, INR 1.3 H 09/26/19 04:45: B-Natriuretic Peptide 926 H 09/26/19 04:45: Sodium 140, Potassium 4.3, Chloride 108, Carbon Dioxide 23, Anion Gap 9.0, BUN 9, Creatinine 0.6, Estimated GFR (MDRD) 95, Glucose 107 H, Calcium 8.2 L 09/26/19 04:45: WBC 55.8 H*, RBC 2.98 L, Hgb 8.1 L, Hct 27.2 L, MCV 91.3, MCH 27.2, MCHC 29.8 L, RDW 15.8 H, Plt Count 224, MPV 10.4, Neut # (Auto) Not Reportable, Lymph # (Auto) Not Reportable, [place] # (Auto) Not Reportable, Eos # (Auto) Not Reportable, Baso # (Auto) Not Reportable, Absolute Nucleated RBC Not Reportable, Total Counted 100, Band Neuts % (Manual) 0, Abnorm Lymph % (Manual) 0, Nucleated RBC % Not Reportable, Neutrophils # (Manual) 6.7 H, Lymphocytes # (Manual) 48.5 H, Monocytes # (Manual) 0.6, Eosinophils # (Manual) 0.0, Basophils # (Manual) 0.0, Differential Comment MANUAL DIFFERENTIAL, WBC Morphology 1+ SMUDGE CELLS, Platelet Estimate NORMAL (130-450,000), RBC Morph Micro Appear NORMAL APPEARANCE 09/25/19 18:20: TSH 2.09 09/25/19 18:20: Troponin I High Sens 28.3 H* 09/25/19 18:20: Hgb 8.5 L, Hct 26.9 L 09/25/19 06:53: Blood Type A POSITIVE, Antibody Screen NEGATIVE, Crossmatch IS Only See Detail 09/25/19 05:23: Sodium 140, Potassium 4.4, Chloride 111, Carbon Dioxide 20 L, Anion Gap 9.0, BUN 14, Creatinine 0.5, Estimated GFR (MDRD) 117, Glucose 120 H, Calcium 7.7 L 09/25/19 05:23: WBC 47.7 H*, RBC 2.44 L, Hgb 6.5 L*, Hct 22.1 L, MCV 90.6, MCH 26.6 L, MCHC 29.4 L, RDW 16.1 H, Plt Count 220, MPV 10.2, Neut # (Auto) Not Reportable, Lymph # (Auto) Not Reportable, [place] # (Auto) Not Reportable, Eos # (Auto) Not Reportable, Baso # (Auto) Not Reportable, Absolute Nucleated RBC Not Reportable, Total Counted 100, Band Neuts % (Manual) 0, Abnorm Lymph % (Manual) 0, Nucleated RBC % Not Reportable, Neutrophils # (Manual) 7.6 H, Lymphocytes # (Manual) 38.6 H, Monocytes # (Manual) 0.5, Eosinophils # (Manual) 1.0 H, Basophils # (Manual) 0.0, Differential Comment MANUAL DIFFERENTIAL, WBC Morphology NORMAL APPEARANCE, Platelet Estimate NORMAL (130-450,000), Platelet Morphology NORMAL APPEARANCE, RBC Morph Micro Appear 2+ HYPOCHROMASIA 09/25/19 05:00: Blood Type Recheck A POSITIVE 09/24/19 05:30: Sodium 140, Potassium 3.4 L, Chloride 107, Carbon Dioxide 24, Anion Gap 9.0, BUN 14, Creatinine 0.5, Estimated GFR (MDRD) 117, Glucose 153 H, Calcium 7.7 L 09/24/19 05:30: WBC 35.7 H*, RBC 2.67 L, Hgb 7.1 L, Hct 23.7 L, MCV 88.8, MCH 26.6 L, MCHC 30.0 L, RDW 16.0 H, Plt Count 219, MPV 10.0, Neut # (Auto) 8.2 H, Lymph # (Auto) 27.0 H, [place] # (Auto) 0.4, Eos # (Auto) 0.0, Baso # (Auto) 0.0, Absolute Nucleated RBC 0.00, Nucleated RBC % 0.0, Manual Slide Review Indicated, Platelet Estimate NORMAL (130-450,000), Platelet Morphology NORMAL APPEARANCE, RBC Morph Micro Appear 2+ HYPOCHROMASIA 09/23/19 16:09: Lactic Acid 1.5 09/23/19 16:09: B-Natriuretic Peptide 503 H 09/23/19 16:09: Troponin I High Sens 38.2 H* 09/23/19 16:09: Sodium 140, Potassium 3.3 L, Chloride 107, Carbon Dioxide 24, Anion Gap 9.0, BUN 19, Creatinine 0.5, Estimated GFR (MDRD) 117, Glucose 194 H, Calcium 7.7 L, Phosphorus 3.3, Magnesium 1.8, Total Bilirubin 0.5, AST 18, ALT 13, Alkaline Phosphatase 58, Total Creatine Kinase 29, Total Protein 5.1 L, Albumin 2.8 L, Globulin 2.3, Albumin/Globulin Ratio 1.2, Lipase 23 09/23/19 16:09: PT 17.3 H, INR 1.6 H 09/23/19 16:09: WBC 40.3 H*, RBC 2.92 L, Hgb 7.9 L, Hct 26.1 L, MCV 89.4, MCH 27.1, MCHC 30.3 L, RDW 16.1 H, Plt Count 233, MPV 10.1, Neut # (Auto) 9.4 H, Lymph # (Auto) 30.2 H, [place] # (Auto) 0.4, Eos # (Auto) 0.0, Baso # (Auto) 0.0, Absolute Nucleated RBC 0.00, Band Neuts % (Manual) Not Reportable, Abnorm Lymph % (Manual) Not Reportable, Nucleated RBC % 0.0, Neutrophils # (Manual) Not Reportable, Lymphocytes # (Manual) Not Reportable, Monocytes # (Manual) Not Reportable, Eosinophils # (Manual) Not Reportable, Basophils # (Manual) Not Reportable, Differential Comment MANUAL=AUTO DIFF, Manual Slide Review Indicated, WBC Morphology 1+ SMUDGE CELLS, Platelet Estimate NORMAL (130- 450,000), Platelet Morphology NORMAL APPEARANCE, RBC Morph Micro Appear 1+ BASO STIPPLING Lab results reviewed: Yes Fish Bones: 09/29/19 05:49 09/29/19 05:49 Home Medications and Allergies Home Medications: Ambulatory Orders Acetaminophen [Tylenol] 650 mg PO Q6H PRN 09/23/19 Aspirin [Aspirin EC] 81 mg PO QPM 09/23/19 Omeprazole 20 mg PO DAILY 09/23/19 Ondansetron HCl [Zofran] 4 mg PO Q6HR PRN 09/23/19 Lovastatin 40 mg PO QPM 09/24/19 Psyllium Husk [Metamucil] 1 gm PO BID 09/24/19 Active Medications Acetaminophen (Tylenol) 650 mg PO Q6H PRN PRN Reason: PAIN Last Admin: 09/26/19 15:46 Dose: 650 mg Documented by: Atorvastatin Calcium (Lipitor) 20 mg PO QPM [facility] Last Admin: 09/28/19 22:11 Dose: 20 mg Documented by: Docusate Sodium (Colace 100mg Capsule) 100 mg PO DAILY [facility] Last Admin: 09/28/19 09:37 Dose: 100 mg Documented by: Dextrose/Sodium Chloride (D5.45ns) 1,000 mls @ 75 mls/hr IV .[id number] [facility] Last Admin: 09/29/19 04:31 Dose: 75 mls/hr Documented by: Fluconazole (Diflucan 200 Mg/100 Ml) 100 mls @ 100 mls/hr IV DAILY [facility] Metoprolol Tartrate (Lopressor) 50 mg PO BID [facility] Last Admin: 09/28/19 22:15 Dose: 50 mg Documented by: Mineral Oil (Cavilon) 1 applic TOP PRN PRN PRN Reason: Skin Care Multi-Ingredient Mouthwash/Gargle () 30 ml PO BID [facility] Last Admin: 09/28/19 22:11 Dose: 30 ml Documented by: Multivitamins (Theragran) 1 tab PO DAILYWM [facility] Last Admin: 09/28/19 09:37 Dose: 1 tab Documented by: Ondansetron HCl (Zofran Inj) 4 mg IVP Q4HR PRN PRN Reason: Nausea / Vomiting Last Admin: 09/25/19 09:35 Dose: 4 mg Documented by: Pantoprazole Sodium (Protonix) 40 mg IVP BID [facility] Last Admin: 09/28/19 21:27 Dose: 40 mg Documented by: Polyethylene Glycol (Miralax) 17 gm PO DAILY [facility] Last Admin: 09/29/19 07:49 Dose: Not Given Documented by: Potassium Chloride () 20 meq PO DAILYWM [facility] Last Admin: 09/28/19 09:36 Dose: 20 meq Documented by: Quetiapine Fumarate (Seroquel) 50 mg PO QPM [facility] Last Admin: 09/28/19 22:11 Dose: 50 mg Documented by: Sertraline HCl (Zoloft) 200 mg PO DAILY [facility] Last Admin: 09/28/19 09:36 Dose: 200 mg Documented by: Sodium Chloride (Normal Saline Flush 0.9%) 10 ml IVP PRN PRN PRN Reason: NEEDED PER PROVIDER ORDERS Last Admin: 09/28/19 21:27 Dose: 10 ml Documented by: Sodium Chloride (Normal Saline Flush 0.9%) 10 ml IVP 0100,0900,1700 [facility] Last Admin: 09/29/19 08:03 Dose: Not Given Documented by: Sucralfate (Carafate) 1 gm PO 0700,1100,1600,2200 [facility] Last Admin: 09/29/19 04:31 Dose: Not Given Documented by: Alendronate Sodium 70 mg PO Q7D 06/05/19 Docusate Sodium 100 mg PO DAILY 06/05/19 Furosemide [Lasix] 20 mg PO DAILY PRN 06/05/19 Metoprolol Tartrate 25 mg PO BID 06/05/19 Multivitamin [Multivitamins] 1 cap PO DAILY 06/05/19 Quetiapine Fumarate 50 mg PO QPM 06/05/19 Sertraline HCl 200 mg PO DAILY 06/05/19 Acetaminophen [Tylenol] 650 mg PO Q6H PRN 09/23/19 Aspirin [Aspirin EC] 81 mg PO QPM 09/23/19 Omeprazole 20 mg PO DAILY 09/23/19 Ondansetron HCl [Zofran] 4 mg PO Q6HR PRN 09/23/19 Lovastatin 40 mg PO QPM 09/24/19 Psyllium Husk [Metamucil] 1 gm PO BID 09/24/19 Allergies/Adverse Reactions: Allergies Allergy/AdvReac Type Severity Reaction Status Date / Time No Known Drug Allergies Allergy Verified 09/23/19 15:43 Anes History & Medical History - Anesthetic History Anesthesia Complications: reports: No previous complications Family history of Anesthesia Complications: Denies Family history of Malignant Hyperthermia: Denies - Medical History Cardiovascular: reports: Hypertension, High cholesterol, Atrial fibrillation Pulmonary: reports: None Gastrointestinal: reports: Other Urinary: reports: Incontinence, Frequency Neuro: reports: Dementia Musculoskeletal: reports: Osteoarthritis, Other Endocrine/Autoimmune: reports: None Skin: reports: None Smoking Status: Never smoker Other Past Medical History: 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 - Surgical History General: Colonoscopy Eyes Ears Nose Throat (EENT): Tonsil/Adenoidectomy Gynecologic: section Exam General: Alert, Oriented x3, Cooperative, No acute distress Dental: Dentures full Upper, Partials Lower Mouth Openin Fingerbreadth Neck Mobility: Normal Mallampati classification: II Respiratory: Lungs clear, Normal breath sounds, No respiratory distress, No accessory muscle use Cardiovascular: Regular rate, Normal S1, Normal S2, No murmurs Plan Anesthesia Type: MAC Consent for Procedure(s) Verified and Reviewed: Yes Code Status: Attempt Resuscitation ASA classification: 3-Severe systemic disease Is this case an emergency?: No
--- NOTE | 2019-09-29 10:32 | ANESTHESIA POST OP EVALUATION ---
Anesthesia Post Eval - Post Anesthesia Eval Vitals: Last Vital Signs Temp 36.7 C 09/29/19 07:48 Pulse 74 09/29/19 07:48 Resp 16 09/29/19 07:48 BP 115/64 09/29/19 07:48 Pulse Ox 94 09/29/19 07:48 CV Function Including HR & BP: positive: Stable Pain Control: positive: Satisfactory Nausea & Vomiting: positive: Negative Mental Status: positive: Baseline Respiratory Status: Airway Patent Hydration Status: Satisfactory Anesthesia Complications: positive: None
[2019-09-29] MEDS: SERTRALINE 50 MG TABLET PO SCH (10:33)
[2019-09-29] MEDS: MULTIVITAMIN TABLET PO SCH (10:33)
[2019-09-29] MEDS: METOPROLOL TARTRATE 50 MG TABLET PO SCH (10:33)
[2019-09-29] MEDS: POTASSIUM CHLORIDE 20 MEQ/15 ML UDC PO SCH (10:34)
[2019-09-29] MEDS: PANTOPRAZOLE 40 MG VIAL IVP SCH ×2 (10:34→21:41)
[2019-09-29] MEDS: FLUCONAZOLE 200 MG/100 ML 100 ML IV SCH (10:34)
[2019-09-29] MEDS: GI COCKTAIL 120 ML BOTTLE PO SCH (10:34)
--- NOTE | 2019-09-29 10:38 | PROVIDER PROGRESS NOTE ---
Progress Note Postoperative day #2 status post upper endoscopy with findings as per EMR. Severe esophagitis revealed on EGD. Attempted colonoscopy however poor prep. NG tube/weighted feeding tube placed towards facilitating bowel prep. Postoperative day 1 status post colonoscopy, initially deferred secondary to retained melanotic stool. Started on tube feeds. Stooling: Several times per week Pain: [Denies] Bleeding: Has become melanotic recently Appetite: Decreased Weight loss/gain: Significant Notable surgery history: Patient had undergone recent hiatal hernia repair with gastropexy by gastrostomy tube placement for text Abdomen soft nontender nondistended no rebound or guarding. Labs reviewed and plan of care discussed with hospital service. 84-year-old female status post recent hiatal hernia repair with gastropexy who presents with significant of acute blood loss anemia necessitating multiple transfer units of packed cells. Dementia. Failure to thrive with significant protein loss malnutrition. Noted on upper endoscopy for severe esophagitis. Pathology pending. Status post colonoscopy following we did gastric tube placem ent and formal bowel prep which she failed to tolerate previously by mouth. There was no evidence of any bright red blood per rectum or colonic source of the patient's gastrointestinal bleeding. Please see the scanned colonoscopic report. She is currently on enteral feeds towards nutritional optimization and avoiding p.o. intake in the setting of her esophagitis. Also recommended beginning Diflucan empirically. Carafate. And continued PPI 1. Continue with care with hospitalist service 2. Status post colonoscopy with no evidence of lower intestinal source for acute blood loss anemia. Upper endoscopy revealing severe esophagitis with associated reflux at the GE junction in setting of extensive forgut intervention for hiatal hernia, that appears to have failed. 3. Tube feed, PPI therapeutic, npo given esophagitis at this time. 4. Upper endoscopy has already noted significant and extensive gastroesophageal junctional and distal esophageal inflammation consistent with esophagitis, possibly Nichelle, with significant contributing reflux esophagitis. This is the likely source, especially given absent colonic source of bleeding on lower endoscopy for her acute blood loss anemia. 5. Aggressive resuscitation. 6. Plan tube feeds with bowel rest, nutrition is already ordered these in anticipation of resuming enteral intake following colonoscopy. 7. Bowel rest and nasogastric tube feeds. 8. PPI infusion and consider Carafate pending results.
[2019-09-30] MEDS: SODIUM CHLORIDE FLUSH 0.9% 10 ML SYRINGE IVP SCH ×3 (00:12→09:00)
[2019-09-30] MEDS: ATORVASTATIN 10 MG TABLET PO SCH ×2 (01:24→20:41)
[2019-09-30] MEDS: SUCRALFATE 1 GM/10 ML UDC PO SCH ×5 (01:24→20:42)
[2019-09-30] MEDS: QUEtiapine 25 MG TABLET PO SCH ×2 (01:25→20:41)
[2019-09-30] MEDS: METOPROLOL TARTRATE 50 MG TABLET PO SCH ×3 (01:25→20:41)
[2019-09-30] MEDS: GI COCKTAIL 120 ML BOTTLE PO SCH ×3 (01:31→20:42)
[2019-09-30] MEDS: DEXTROSE 5%-0.45% NACL 1,000 ML IV SCH ×2 (02:06→15:55)
--- NOTE | 2019-09-30 07:17 | PROVIDER PROGRESS NOTE ---
Subjective - Prog Note Date Prog Note Date: 09/30/19 - Subjective Subjective: She pulled out her Dobbhoff overnight unfortunately. This morning, she reports no chest pain, dyspnea, abdominal pain, nausea, vomiting. Current Medications - Current Medications Current Medications: Active Medications Acetaminophen (Tylenol) 650 mg PO Q6H PRN PRN Reason: PAIN Last Admin: 09/26/19 15:46 Dose: 650 mg Documented by: Atorvastatin Calcium (Lipitor) 20 mg PO QPM [facility] Last Admin: 09/30/19 01:24 Dose: 20 mg Documented by: Docusate Sodium (Colace 100mg Capsule) 100 mg PO DAILY [facility] Last Admin: 09/28/19 09:37 Dose: 100 mg Documented by: Dextrose/Sodium Chloride (D5.45ns) 1,000 mls @ 75 mls/hr IV .[id number] [facility] Last Admin: 09/30/19 02:06 Dose: 75 mls/hr Documented by: Fluconazole (Diflucan 200 Mg/100 Ml) 100 mls @ 100 mls/hr IV DAILY [facility] Last Infusion: 09/29/19 11:48 Dose: Infused Documented by: Metoprolol Tartrate (Lopressor) 50 mg PO BID [facility] Last Admin: 09/30/19 01:25 Dose: 50 mg Documented by: Mineral Oil (Cavilon) 1 applic TOP PRN PRN PRN Reason: Skin Care Multi-Ingredient Mouthwash/Gargle () 30 ml PO BID [facility] Last Admin: 09/30/19 01:31 Dose: Not Given Documented by: Multivitamins (Theragran) 1 tab PO DAILYWM [facility] Last Admin: 09/29/19 10:33 Dose: 1 tab Documented by: Ondansetron HCl (Zofran Inj) 4 mg IVP Q4HR PRN PRN Reason: Nausea / Vomiting Last Admin: 09/25/19 09:35 Dose: 4 mg Documented by: Pantoprazole Sodium (Protonix) 40 mg IVP BID [facility] Last Admin: 09/29/19 21:41 Dose: 40 mg Documented by: Polyethylene Glycol (Miralax) 17 gm PO DAILY [facility] Last Admin: 09/29/19 07:49 Dose: Not Given Documented by: Potassium Chloride () 20 meq PO DAILYWM [facility] Last Admin: 09/29/19 10:34 Dose: 20 meq Documented by: Quetiapine Fumarate (Seroquel) 50 mg PO QPM [facility] Last Admin: 09/30/19 01:25 Dose: 50 mg Documented by: Sertraline HCl (Zoloft) 200 mg PO DAILY [facility] Last Admin: 09/29/19 10:33 Dose: 200 mg Documented by: Sodium Chloride (Normal Saline Flush 0.9%) 10 ml IVP PRN PRN PRN Reason: NEEDED PER PROVIDER ORDERS Last Admin: 09/28/19 21:27 Dose: 10 ml Documented by: Sodium Chloride (Normal Saline Flush 0.9%) 10 ml IVP 0100,0900,1700 [facility] Last Admin: 09/30/19 00:12 Dose: Not Given Documented by: Sucralfate (Carafate) 1 gm PO 0700,1100,1600,2200 [facility] Last Admin: 09/30/19 06:08 Dose: Not Given Documented by: Alendronate Sodium 70 mg PO Q7D 06/05/19 Docusate Sodium 100 mg PO DAILY 06/05/19 Furosemide [Lasix] 20 mg PO DAILY PRN 06/05/19 Metoprolol Tartrate 25 mg PO BID 06/05/19 Multivitamin [Multivitamins] 1 cap PO DAILY 06/05/19 Quetiapine Fumarate 50 mg PO QPM 06/05/19 Sertraline HCl 200 mg PO DAILY 06/05/19 Acetaminophen [Tylenol] 650 mg PO Q6H PRN 09/23/19 Aspirin [Aspirin EC] 81 mg PO QPM 09/23/19 Omeprazole 20 mg PO DAILY 09/23/19 Ondansetron HCl [Zofran] 4 mg PO Q6HR PRN 09/23/19 Lovastatin 40 mg PO QPM 09/24/19 Psyllium Husk [Metamucil] 1 gm PO BID 09/24/19 Objective - Vital Signs/Intake & Output Reviewed Vital Signs: Yes Vital Signs: Vital Signs x48h Temp Pulse Resp BP BP Pulse Ox 09/30/19 05:53 36.1 C L 56 L 16 109/59 L 99 09/30/19 01:25 146/75 H 09/30/19 00:00 36.7 C 75 18 146/75 H 94 Intake & Output: Intake & Output 09/27/19 09/28/19 09/29/19 09/30/19 23:59 23:59 23:59 23:59 Intake Total 1500.0 1703.00 3538.75 1000 Output Total 300 350 600 Balance 1200.0 1703.00 3188.75 400 - Objective General Appearance: positive: No acute distress, Alert Eyes Bilateral: positive: Normal inspection, Conjunctivae nml ENT: positive: ENT inspection nml Neck: positive: Nml inspection Respiratory: positive: No respiratory distress. negative: Wheezes, Rales Cardiovascular: positive: Irregularly irregular. negative: Tachycardia, Systolic murmur Abdomen: positive: Non-tender, No distention. negative: Tenderness Skin: positive: Warm, Dry. negative: Pallor Extremities: positive: Full ROM, No pedal edema Neurologic/Psychiatric: positive: Disoriented to time. negative: Disoriented to person, Disoriented to place - Lab Results Fish Bones: 09/30/19 16:03 09/30/19 07:42 Other Labs: Lab Results x24hrs 09/28/19 Range/Units 12:45 Coronavirus (PCR) NEGATIVE ABX Reporting Has patient been on IV antibiotics over the past 48 hours?: No Assessment/Plan - Problem List (1) Esophagitis Impression: This appears to be improving. Her hemoglobin did decrease a little bit today but this could be a lab error. Unfortunately, she pulled out her Dobbhoff overnight. I spoke with general surgery and we will start her on a clear liquid diet today and monitor for further evidence of bleeding. Continue her on Diflucan empirically for presumed candidal esophagitis. Continue Protonix IV twice daily. Follow-up biopsy results. (2) Acute blood loss anemia Impression: Hemoglobin did decrease a little bit this morning but this could be a lab error. She has remained hemodynamically stable. No further evidence of bleeding. Will recheck hemoglobin this afternoon and if it is improved we will just continue to check this daily. (3) Atrial fibrillation with RVR Impression: She remains rate controlled on her current dose of metoprolol 50 mg twice daily which was increased from 25 mg twice daily on admission. She presented with rapid ventricular response but is rate controlled on this current dose. We will continue her current regimen. We will continue to hold her aspirin given the anemia. Monitor on telemetry. (4) Heart failure with preserved ejection fraction Impression: Echocardiogram revealed an ejection fraction of 50 to 55% with severely elevated right heart pressures. This is similar to her recent echocardiogram from [facility]. This is not in exacerbation and so we will continue to hold her home diuretic at this time. We will look to resume this over the next day or 2 as she is transition off of tube feeds and back onto a diet. Qualifiers: Heart failure chronicity: chronic Qualified Code(s): I50.32 - Chronic diast olic (congestive) heart failure (5) CLL (chronic lymphocytic leukemia) Impression: Stable. Continue outpatient follow-up. (6) Hypertension Impression: Pressure has been well controlled over the past 24 hours except for 1-2 elevated readings with systolics in the 150s. We will continue her on the current dose of metoprolol and continue to monitor. (7) Dementia Impression: Stable and at baseline. Continue home Seroquel. (8) Hyperlipidemia Impression: Stable. Continue statin.
[2019-09-30 07:57] LABS: BASOPHILS % (AUTO) 0.1 %; EOSINOPHILS % (AUTO) 0.8 %; HGB - HEMOGLOBIN 8.4 g/dL (12.0-16.0); MEAN CORPUSCULAR HEMOGLOBIN 28.2 pg (27.0-31.0); MEAN CORPUSCULAR HGB CONC 30.9 g/dL (32.0-36.0); MEAN CORPUSCULAR VOLUME 91.3 fL (81.0-99.0); MEAN PLATELET VOLUME 10.1 fL (7.9-10.8); NEUTROPHILS % (AUTO) 17.6 %; PLT - PLATELET COUNT 178 10^3/uL (130-450); RED BLOOD COUNT 2.98 10^6/uL (4.20-5.40); RED CELL DISTRIBUTION WIDTH 16.9 % (12.0-15.0)
[2019-09-30 08:03] LABS: CALCIUM 7.7 mg/dL (8.5-10.3); CREATININE 0.6 mg/dL (0.4-1.0); PHOSPHORUS 3.2 mg/dL (2.5-4.6)
[2019-09-30 08:06] LABS: ABNORMAL LYMPHS % (MANUAL) 0 %; BAND NEUTROPHILS % (MANUAL) 0 %
[2019-09-30 08:33] LABS: DIFFERENTIAL COMMENT MANUAL DIFFERENTIAL; EOSINOPHILS # (MANUAL) 0.3 10^3/uL (0-0.7); LYMPHOCYTES % (MANUAL) 62 %; MONOCYTES # (MANUAL) 1.2 10^3/uL (0.0-1.0); PLATELET ESTIMATE, MANUAL NORMAL (130-450,000) (NORMAL); PLATELET MORPHOLOGY NORMAL APPEARANCE (NORMAL)
[2019-09-30] MEDS: DOCUSATE SODIUM 100 MG CAPSULE PO SCH (08:56)
[2019-09-30] MEDS: FLUCONAZOLE 200 MG/100 ML 100 ML IV SCH (08:56)
[2019-09-30] MEDS: MULTIVITAMIN TABLET PO SCH (08:56)
[2019-09-30] MEDS: SERTRALINE 50 MG TABLET PO SCH (08:56)
[2019-09-30] MEDS: PANTOPRAZOLE 40 MG VIAL IVP SCH ×2 (08:59→20:35)
[2019-09-30] MEDS: SODIUM CHLORIDE FLUSH 0.9% 10 ML SYRINGE IVP PRN ×2 (09:00→20:35)
[2019-09-30] MEDS ORDERED: POTASSIUM CHLORIDE 20 MEQ/15 ML UDC NG SCH (09:00)
[2019-09-30] MEDS: polyethylene glycoL 3350 17 GM PACKET PO SCH ×2 (11:07→14:53)
--- NOTE | 2019-09-30 12:54 | PROVIDER PROGRESS NOTE ---
Subjective - General Admit Date: 09/24/19 Procedure Performed: Upper endoscopy, postoperative day #3; colonoscopy, POD#2. - Review of Systems General: positive: Weakness Gastrointestinal: negative: Nausea, Vomiting - Other Other Information/Narrative: Patient self discontinued weighted nasogastric tube overnight. Objective - Patient Data Vital Signs: Vital Signs x48h Temp Pulse Resp BP BP Pulse Ox 09/30/19 11:30 36.2 C L 58 L 16 120/62 100 09/30/19 08:58 112/59 L 09/30/19 08:50 67 112/59 L 09/30/19 07:35 36.0 C L 63 20 119/57 L 97 09/30/19 05:53 36.1 C L 56 L 16 109/59 L 99 Weight: Weight 09/28/19 09/29/19 09/30/19 23:59 23:59 23:59 Weight (kg) 53.5 kg 56.5 kg 58 kg Intake & Output: Intake and Output Totals x24h 09/28/19 09/29/19 09/30/19 23:59 23:59 23:59 Intake Total 1703.00 3538.75 1000 Output Total 350 600 Balance 1703.00 3188.75 400 - Lab Results Lab Results: 10/01/19 04:40 10/01/19 04:40 Other Lab Results: Lab Results x24hrs 09/30/19 09/30/19 09/28/19 Range/Units 07:42 07:42 12:45 WBC 29.0 H (4.8-10.8) x10^3/uL RBC 2.98 L (4.20-5.40) 10^6/uL Hgb 8.4 L (12.0-16.0) g/dL Hct 27.2 L (37.0-47.0) % MCV 91.3 (81.0-99.0) fL MCH 28.2 (27.0-31.0) pg MCHC 30.9 L (32.0-36.0) g/dL RDW 16.9 H (12.0-15.0) % Plt Count 178 (130-450) 10^3/uL MPV 10.1 (7.9-10.8) fL Neut # (Auto) Not Reportable Lymph # (Auto) Not Reportable Benzie # (Auto) Not Reportable Eos # (Auto) Not Reportable Baso # (Auto) Not Reportable Absolute Nucleated RBC Not Reportable Total Counted 100 Band Neuts % (Manual) 0 (0 - 10) % Abnorm Lymph % (Manual) 0 % Nucleated RBC % Not Reportable Neutrophils # (Manual) 9.6 H (1.5-6.6) 10^3/uL Lymphocytes # (Manual) 18.0 H (1.5-3.5) 10^3/uL Monocytes # (Manual) 1.2 H (0.0-1.0) 10^3/uL Eosinophils # (Manual) 0.3 (0-0.7) 10^3/uL Basophils # (Manual) 0.0 (0-0.1) 10^3/uL Differential Comment MANUAL DIFFERENTIAL WBC Morphology 3+ SMUDGE CELLS (NORMAL) Platelet Estimate NORMAL (130-450,000) (NORMAL) Platelet Morphology NORMAL APPEARANCE (NORMAL) RBC Morph Micro Appear 1+ POIKILOCYTOSIS (NORMAL) Sodium 138 (135-145) mmol/L Potassium 3.1 L (3.5-5.0) mmol/L Chloride 108 (101-111) mmol/L Carbon Dioxide 22 (21-32) mmol/L Anion Gap 8.0 (6-13) BUN 5 L (6-20) mg/dL Creatinine 0.6 (0.4-1.0) mg/dL Estimated GFR (MDRD) 95 (>89) Glucose 130 H (70-100) mg/dL Calcium 7.7 L (8.5-10.3) mg/dL Phosphorus 3.2 (2.5-4.6) mg/dL Magnesium 2.0 (1.7-2.8) mg/dL Coronavirus (PCR) NEGATIVE - Current Medications Current Medications: Current Medications Generic Name Dose Route Start Last Admin Trade Name Freq PRN Reason Stop Dose Admin Acetaminophen 650 mg 09/25/19 07:32 09/26/19 15:46 Tylenol PO 650 mg Q6H PRN Administration PAIN Atorvastatin Calcium 20 mg 09/25/19 21:00 09/30/19 01:24 Lipitor PO 20 mg QPM AMANDO Administration Docusate Sodium 100 mg 09/25/19 09:00 09/30/19 08:56 Colace 100mg Capsule PO 100 mg DAILY AMANDO Administration Dextrose/Sodium Chloride 1,000 mls @ 75 mls/hr 09/27/19 20:00 09/30/19 02:06 D5.45ns IV 75 mls/hr .[id number] AMANDO Administration Fluconazole 100 mls @ 100 mls/hr 09/29/19 09:00 09/30/19 08:56 Diflucan 200 Mg/100 Ml IV 100 mls/hr DAILY AMANDO Administration Metoprolol Tartrate 50 mg 09/28/19 21:00 09/30/19 08:58 Lopressor PO 50 mg BID AMANDO Administration Multi-Ingredient Mouthwash/Gargle 30 ml 09/27/19 21:00 09/30/19 11:07 PO Not Given BID AMANDO Multivitamins 1 tab 09/26/19 08:00 09/30/19 08:56 Theragran PO 1 tab DAILYWM AMANDO Administration Ondansetron HCl 4 mg 09/23/19 20:12 09/25/19 09:35 Zofran Inj IVP 4 mg Q4HR PRN Administration Nausea / Vomiting Pantoprazole Sodium 40 mg 09/25/19 21:00 09/30/19 08:59 Protonix IVP 40 mg BID AMANDO Administration Polyethylene Glycol 17 gm 09/23/19 22:23 09/30/19 11:07 Miralax PO Not Given DAILY AMANDO Potassium Chloride 20 meq 09/30/19 09:00 09/30/19 12:14 NG 20 meq DAILYWM AMANDO Administration Quetiapine Fumarate 50 mg 09/25/19 21:00 09/30/19 01:25 Seroquel PO 50 mg QPM AMANDO Administration Sertraline HCl 200 mg 09/25/19 09:00 09/30/19 08:56 Zoloft PO 200 mg DAILY AMANDO Administration Sodium Chloride 10 ml 09/23/19 20:12 09/30/19 09:00 Normal Saline Flush 0.9% IVP 20 ml PRN PRN Administration NEEDED PER PROVIDER ORDERS Sodium Chloride 10 ml 09/24/19 01:00 09/30/19 09:00 Normal Saline Flush 0.9% IVP 10 ml 0100,0900,1700 AMANDO Administration Sucralfate 1 gm 09/28/19 16:00 09/30/19 12:16 Carafate PO Not Given 0700,1100,1600,2200 AMANDO - Physical Exam General Appearance: positive: No acute distress Eyes Bilateral: positive: Normal inspection, PERRL, EOMI ENT: positive: ENT inspection nml Neck: positive: Nml inspection Respiratory: positive: Chest non-tender. negative: Wheezes, Rales, Rhonchi Abdomen: positive: Non-tender, No distention. negative: Tenderness, Guarding, Rebound Extremities: positive: Non-tender, Full ROM Neurologic/Psychiatric: positive: Oriented x3, CN's nml (2-12) Impression/Plan - Problem List Problem List: Postoperative day #3 status post upper endoscopy with severe esophagitis revealed on EGD. Attempted colonoscopy however poor prep. NG tube/weighted feeding tube placed towards facilitating bowel prep. Postoperative day #2 status post colonoscopy, initially deferred secondary to retained melanotic stool. Started on tube feeds. 84-year-old female status post recent hiatal hernia repair with gastropexy who presents with significant of acute blood loss anemia necessitating multiple transfer units of packed cells. Dementia. Failure to thrive with significant protein loss malnutrition. Noted on upper endoscopy for severe esophagitis. Pathology pending. Status post colonoscopy following we did gastric tube placement and formal bowel prep which she failed to tolerate previously by mouth. There was no evidence of any bright red blood per rectum or colonic source of the patient's gastrointestinal bleeding. Please see the scanned colonoscopic report. She is currently on enteral feeds towards nutritional optimization and avoiding p.o. intake in the setting of her esophagitis. Also recommended beginning Diflucan empirically. Carafate. And continued PPI 1. Continue with care with hospitalist service 2. Status post colonoscopy with no evidence of lower intestinal source for acute blood loss anemia. Upper endoscopy revealing severe esophagitis with associated reflux at the GE junction in setting of extensive forgut intervention for hiatal hernia, that appears to have failed. 3. PPI therapeutic, slow resumption of liquid diet given patient self-removed weighted feeding tube especially in light of her severe esophagitis at this time. 4. Upper endoscopy has already noted significant and extensive gastroesophageal junctional and distal esophageal inflammation consistent with esophagitis, possibly Nichelle, with significant contributing reflux esophagitis. This is the likely source, especially given absent colonic source of bleeding on lower endoscopy for her acute blood loss anemia. 5. PPI infusion and consider Carafate pending results. 6. Trend H/H, transfuse as necessary, consider Venofer as needed.
[2019-09-30] MEDS: POTASSIUM CHLOR 10 MEQ/100 ML 10 MEQ/100 ML BAG IV SCH ×4 (14:13→17:43)
[2019-09-30 16:11] LABS: HGB - HEMOGLOBIN 9.2 g/dL (12.0-16.0)
[2019-10-01] MEDS: SODIUM CHLORIDE FLUSH 0.9% 10 ML SYRINGE IVP SCH ×4 (01:24→23:45)
[2019-10-01] MEDS: DEXTROSE 5%-0.45% NACL 1,000 ML IV SCH (04:57)
[2019-10-01 04:58] LABS: BASOPHILS % (AUTO) 0.2 %; EOSINOPHILS % (AUTO) 0.9 %; HGB - HEMOGLOBIN 8.3 g/dL (12.0-16.0); LYMPHOCYTES % (AUTO) 79.2 %; MEAN CORPUSCULAR HEMOGLOBIN 27.1 pg (27.0-31.0); MEAN CORPUSCULAR HGB CONC 29.4 g/dL (32.0-36.0); MEAN CORPUSCULAR VOLUME 92.2 fL (81.0-99.0); MEAN PLATELET VOLUME 10.3 fL (7.9-10.8); NEUTROPHILS % (AUTO) 17.3 %; PLT - PLATELET COUNT 173 10^3/uL (130-450); RED BLOOD COUNT 3.06 10^6/uL (4.20-5.40); RED CELL DISTRIBUTION WIDTH 16.9 % (12.0-15.0); WHITE BLOOD COUNT 30.6 x10^3/uL (4.8-10.8)
[2019-10-01 05:01] LABS: ABNORMAL LYMPHS % (MANUAL) 0 %; BAND NEUTROPHILS % (MANUAL) 0 %
[2019-10-01 05:11] LABS: ALBUMIN 2.2 g/dL (3.2-5.5); BILIRUBIN,TOTAL 0.6 mg/dL (0.2-1.0); CALCIUM 7.9 mg/dL (8.5-10.3); CREATININE 0.5 mg/dL (0.4-1.0); MAGNESIUM 1.9 mg/dL (1.7-2.8); PHOSPHORUS 3.5 mg/dL (2.5-4.6); TOTAL PROTEIN 4.3 g/dL (6.7-8.2)
[2019-10-01 05:30] LABS: BASOPHILS # (MANUAL) 0.3 10^3/uL (0-0.1); BASOPHILS % (MANUAL) 1 %; EOSINOPHILS # (MANUAL) 0.3 10^3/uL (0-0.7); LYMPHOCYTES % (MANUAL) 75 %
[2019-10-01 05:32] LABS: DIFFERENTIAL COMMENT MANUAL DIFFERENTIAL; PLATELET ESTIMATE, MANUAL NORMAL (130-450,000) (NORMAL); PLATELET MORPHOLOGY NORMAL APPEARANCE (NORMAL)
[2019-10-01] MEDS: SUCRALFATE 1 GM/10 ML UDC PO SCH ×4 (06:54→22:25)
[2019-10-01] MEDS ORDERED: FUROSEMIDE 20 MG/2 ML VIAL IVP STA (07:13)
--- NOTE | 2019-10-01 07:15 | PROVIDER PROGRESS NOTE ---
Subjective - Prog Note Date Prog Note Date: 10/01/19 - Subjective Subjective: She reports feeling well. Denies any chest pain or dyspnea. Reports no nausea or abdominal pain. She has been tolerating a clear liquid diet. Current Medications - Current Medications Current Medications: Active Medications Acetaminophen (Tylenol) 650 mg PO Q6H PRN PRN Reason: PAIN Last Admin: 09/26/19 15:46 Dose: 650 mg Documented by: Atorvastatin Calcium (Lipitor) 20 mg PO QPM [facility] Last Admin: 09/30/19 20:41 Dose: 20 mg Documented by: Docusate Sodium (Colace 100mg Capsule) 100 mg PO DAILY [facility] Last Admin: 10/01/19 08:20 Dose: 100 mg Documented by: Fluconazole (Diflucan 200 Mg/100 Ml) 100 mls @ 100 mls/hr IV DAILY [facility] Last Infusion: 10/01/19 10:53 Dose: Infused Documented by: Metoprolol Tartrate (Lopressor) 50 mg PO BID [facility] Last Admin: 10/01/19 08:30 Dose: 50 mg Documented by: Mineral Oil (Cavilon) 1 applic TOP PRN PRN PRN Reason: Skin Care Multi-Ingredient Mouthwash/Gargle () 30 ml PO BID [facility] Last Admin: 10/01/19 11:07 Dose: Not Given Documented by: Multivitamins (Theragran) 1 tab PO DAILYWM [facility] Last Admin: 10/01/19 08:20 Dose: 1 tab Documented by: Ondansetron HCl (Zofran Inj) 4 mg IVP Q4HR PRN PRN Reason: Nausea / Vomiting Last Admin: 09/25/19 09:35 Dose: 4 mg Documented by: Pantoprazole Sodium (Protonix) 40 mg IVP BID [facility] Last Admin: 10/01/19 08:20 Dose: 40 mg Documented by: Polyethylene Glycol (Miralax) 17 gm PO DAILY [facility] Last Admin: 10/01/19 08:20 Dose: 17 gm Documented by: Quetiapine Fumarate (Seroquel) 50 mg PO QPM [facility] Last Admin: 09/30/19 20:41 Dose: 50 mg Documented by: Sertraline HCl (Zoloft) 200 mg PO DAILY [facility] Last Admin: 10/01/19 08:19 Dose: 200 mg Documented by: Sodium Chloride (Normal Saline Flush 0.9%) 10 ml IVP PRN PRN PRN Reason: NEEDED PER PROVIDER ORDERS Last Admin: 09/30/19 20:35 Dose: 10 ml Documented by: Sodium Chloride (Normal Saline Flush 0.9%) 10 ml IVP 0100,0900,1700 [facility] Last Admin: 10/01/19 08:21 Dose: 10 ml Documented by: Sucralfate (Carafate) 1 gm PO 0700,1100,1600,2200 [facility] Last Admin: 10/01/19 06:54 Dose: 1 gm Documented by: Alendronate Sodium 70 mg PO Q7D 06/05/19 Docusate Sodium 100 mg PO DAILY 06/05/19 Furosemide [Lasix] 20 mg PO DAILY PRN 06/05/19 Metoprolol Tartrate 25 mg PO BID 06/05/19 Multivitamin [Multivitamins] 1 cap PO DAILY 06/05/19 Quetiapine Fumarate 50 mg PO QPM 06/05/19 Sertraline HCl 200 mg PO DAILY 06/05/19 Acetaminophen [Tylenol] 650 mg PO Q6H PRN 09/23/19 Aspirin [Aspirin EC] 81 mg PO QPM 09/23/19 Omeprazole 20 mg PO DAILY 09/23/19 Ondansetron HCl [Zofran] 4 mg PO Q6HR PRN 09/23/19 Lovastatin 40 mg PO QPM 09/24/19 Psyllium Husk [Metamucil] 1 gm PO BID 09/24/19 Objective - Vital Signs/Intake & Output Reviewed Vital Signs: Yes Vital Signs: Vital Signs x48h Temp Pulse Resp BP Pulse Ox 10/01/19 04:56 36.4 C L 64 20 138/66 H 92 10/01/19 00:20 36.3 C L 65 18 118/68 96 Intake & Output: Intake & Output 09/28/19 09/29/19 09/30/19 10/01/19 23:59 23:59 23:59 23:59 Intake Total 1703.00 3538.75 2650 977.5 Output Total 350 1250 550 Balance 1703.00 3188.75 1400 427.5 - Objective General Appearance: positive: No acute distress, Alert Eyes Bilateral: positive: Normal inspection, Conjunctivae nml ENT: positive: ENT inspection nml Neck: positive: Nml inspection Respiratory: positive: No respiratory distress. negative: Wheezes, Rales Cardiovascular: positive: Regular rate & rhythm, No murmur. negative: Tachycardia, Bradycardia, Systolic murmur Abdomen: positive: Non-tender, No distention. negative: Tenderness, Guarding, Rebound Skin: positive: Warm, Dry Extremities: positive: No pedal edema Neurologic/Psychiatric: positive: Disoriented to time, Other (No focal deficits on exam.). negative: Disoriented to person, Disoriented to place - Lab Results Fish Bones: 10/01/19 04:40 10/01/19 04:40 Other Labs: Lab Results x24hrs 10/01/19 10/01/19 09/30/19 Range/Units 04:40 04:40 16:03 WBC 30.6 H (4.8-10.8) x10^3/uL RBC 3.06 L (4.20-5.40) 10^6/uL Hgb 8.3 L 9.2 L (12.0-16.0) g/dL Hct 28.2 L 32.2 L (37.0-47.0) % MCV 92.2 (81.0-99.0) fL MCH 27.1 (27.0-31.0) pg MCHC 29.4 L (32.0-36.0) g/dL RDW 16.9 H (12.0-15.0) % Plt Count 173 (130-450) 10^3/uL MPV 10.3 (7.9-10.8) fL Neut # (Auto) Not Reportable Lymph # (Auto) Not Reportable Merrick # (Auto) Not Reportable Eos # (Auto) Not Reportable Baso # (Auto) Not Reportable Absolute Nucleated RBC Not Reportable Total Counted 100 Band Neuts % (Manual) 0 (0 - 10) % Abnorm Lymph % (Manual) 0 % Nucleated RBC % Not Reportable Neutrophils # (Manual) 7.0 H (1.5-6.6) 10^3/uL Lymphocytes # (Manual) 23.0 H (1.5-3.5) 10^3/uL Monocytes # (Manual) 0.0 (0.0-1.0) 10^3/uL Eosinophils # (Manual) 0.3 (0-0.7) 10^3/uL Basophils # (Manual) 0.3 H (0-0.1) 10^3/uL Differential Comment MANUAL DIFFERENTIAL WBC Morphology 2+ SMUDGE CELLS (NORMAL) Platelet Estimate NORMAL (130-450,000) (NORMAL) Platelet Morphology NORMAL APPEARANCE (NORMAL) RBC Morph Micro Appear 1+ POLYCHROMASIA (NORMAL) Sodium 138 (135-145) mmol/L Potassium 3.7 (3.5-5.0) mmol/L Chloride 110 (101-111) mmol/L Carbon Dioxide 23 (21-32) mmol/L Anion Gap 5.0 L (6-13) BUN 5 L (6-20) mg/dL Creatinine 0.5 (0.4-1.0) mg/dL Estimated GFR (MDRD) 117 (>89) Glucose 108 H (70-100) mg/dL Calcium 7.9 L (8.5-10.3) mg/dL Phosphorus 3.5 (2.5-4.6) mg/dL Magnesium 1.9 (1.7-2.8) mg/dL Total Bilirubin 0.6 (0.2-1.0) mg/dL AST 16 (10-42) IU/L ALT 11 (10-60) IU/L Alkaline Phosphatase 61 (42-121) IU/L Total Protein 4.3 L (6.7-8.2) g/dL Albumin 2.2 L (3.2-5.5) g/dL Globulin 2.2 (2.1-4.2) g/dL Albumin/Globulin Ratio 1.0 (1.0-2.2) Prealbumin 8 L (18-45) mg/dL 09/30/19 09/30/19 Range/Units 07:42 07:42 WBC 29.0 H (4.8-10.8) x10^3/uL RBC 2.98 L (4.20-5.40) 10^6/uL Hgb 8.4 L (12.0-16.0) g/dL Hct 27.2 L (37.0-47.0) % MCV 91.3 (81.0-99.0) fL MCH 28.2 (27.0-31.0) pg MCHC 30.9 L (32.0-36.0) g/dL RDW 16.9 H (12.0-15.0) % Plt Count 178 (130-450) 10^3/uL MPV 10.1 (7.9-10.8) fL Neut # (Auto) Not Reportable Lymph # (Auto) Not Reportable Merrick # (Auto) Not Reportable Eos # (Auto) Not Reportable Baso # (Auto) Not Reportable Absolute Nucleated RBC Not Reportable Total Counted 100 Band Neuts % (Manual) 0 (0 - 10) % Abnorm Lymph % (Manual) 0 % Nucleated RBC % Not Reportable Neutrophils # (Manual) 9.6 H (1.5-6.6) 10^3/uL Lymphocytes # (Manual) 18.0 H (1.5-3.5) 10^3/uL Monocytes # (Manual) 1.2 H (0.0-1.0) 10^3/uL Eosinophils # (Manual) 0.3 (0-0.7) 10^3/uL Basophils # (Manual) 0.0 (0-0.1) 10^3/uL Differential Comment MANUAL DIFFERENTIAL WBC Morphology 3+ SMUDGE CELLS (NORMAL) Platelet Estimate NORMAL (130-450,000) (NORMAL) Platelet Morphology NORMAL APPEARANCE (NORMAL) RBC Morph Micro Appear 1+ POIKILOCYTOSIS (NORMAL) Sodium 138 (135-145) mmol/L Potassium 3.1 L (3.5-5.0) mmol/L Chloride 108 (101-111) mmol/L Carbon Dioxide 22 (21-32) mmol/L Anion Gap 8.0 (6-13) BUN 5 L (6-20) mg/dL Creatinine 0.6 (0.4-1.0) mg/dL Estimated GFR (MDRD) 95 (>89) Glucose 130 H (70-100) mg/dL Calcium 7.7 L (8.5-10.3) mg/dL Phosphorus 3.2 (2.5-4.6) mg/dL Magnesium 2.0 (1.7-2.8) mg/dL Total Bilirubin (0.2-1.0) mg/dL AST (10-42) IU/L ALT (10-60) IU/L Alkaline Phosphatase (42-121) IU/L Total Protein (6.7-8.2) g/dL Albumin (3.2-5.5) g/dL Globulin (2.1-4.2) g/dL Albumin/Globulin Ratio (1.0-2.2) Prealbumin (18-45) mg/dL ABX Reporting Has patient been on IV antibiotics over the past 48 hours?: No Assessment/Plan - Problem List (1) Esophagitis Impression: This was evident on endoscopy and the source of her acute blood loss anemia. She has been started on Diflucan IV empirically for possible Nichelle esophagitis and today is day 3 of this. Biopsy results are pending. She is tolerating a clear liquid diet without difficulty. Will discuss with general surgery regarding advancement of her diet. We will continue her on Protonix twice daily. She can likely be discharged to a skilled nurse facility tomorrow if her diet can be advanced and she tolerates this well. (2) Acute blood loss anemia Impression: Hemoglobin has been stable now for 96 hours. It did drop again this morning but suspect this may be lab fluctuation and showed no evidence of bleeding. We will recheck another hemoglobin tomorrow and if it is stable and there is likely no further bleeding. She did require transfusion during this hospitalization. (3) Atrial fibrillation with RVR Impression: She is now in a sinus rhythm and is rate controlled on metoprolol. We will continue her current dose metoprolol as she is tolerating it well. No anticoagulation due to GI bleed and prior history of falls. (4) Heart failure with preserved ejection fraction Impression: This does not appear to be in exacerbation. Echocardiogram showed preserved ejection fraction with evidence of pulmonary hypertension. She is not hypoxic or tachypneic. Given amount of IV fluid she has received in blood products, we will give her a one-time dose of Lasix IV today as her oxygen saturations have been at the lower end of normal. Qualifiers: Heart failure chronicity: chronic Qualified Code(s): I50.32 - Chronic diastolic (congestive) heart failure (5) CLL (chronic lymphocytic leukemia) Impression: Stable. She can continue outpatient follow-up with her primary care provider as she is no longer seeing oncology for this. (6) Hypertension Impression: This has been well controlled on metoprolol which will be continued. (7) Dementia Impression: Stable. Continue her home Seroquel. (8) Hyperlipidemia Impression: Stable. Continue statin.
[2019-10-01] MEDS: SERTRALINE 50 MG TABLET PO SCH (08:19)
[2019-10-01] MEDS: polyethylene glycoL 3350 17 GM PACKET PO SCH (08:20)
[2019-10-01] MEDS: MULTIVITAMIN TABLET PO SCH (08:20)
[2019-10-01] MEDS: PANTOPRAZOLE 40 MG VIAL IVP SCH ×2 (08:20→22:24)
[2019-10-01] MEDS: FLUCONAZOLE 200 MG/100 ML 100 ML IV SCH (08:20)
[2019-10-01] MEDS: DOCUSATE SODIUM 100 MG CAPSULE PO SCH (08:20)
[2019-10-01] MEDS: METOPROLOL TARTRATE 50 MG TABLET PO SCH ×2 (08:30→22:25)
[2019-10-01] MEDS: GI COCKTAIL 120 ML BOTTLE PO SCH ×3 (11:07→22:30)
[2019-10-01] MEDS: ATORVASTATIN 10 MG TABLET PO SCH (22:24)
[2019-10-01] MEDS: SODIUM CHLORIDE FLUSH 0.9% 10 ML SYRINGE IVP PRN (22:24)
[2019-10-01] MEDS: QUEtiapine 25 MG TABLET PO SCH (22:24)
[2019-10-02 05:39] LABS: BASOPHILS # (AUTO) 0.1 10^3/uL (0.0-0.1); BASOPHILS % (AUTO) 0.2 %; EOSINOPHILS # (AUTO) 0.3 10^3/uL (0.0-0.7); EOSINOPHILS % (AUTO) 0.8 %; HGB - HEMOGLOBIN 8.3 g/dL (12.0-16.0); LYMPHOCYTES # (AUTO) 26.3 10^3/uL (1.5-3.5); LYMPHOCYTES % (AUTO) 83.2 %; MEAN CORPUSCULAR HEMOGLOBIN 27.5 pg (27.0-31.0); MEAN CORPUSCULAR VOLUME 91.7 fL (81.0-99.0); MEAN PLATELET VOLUME 10.6 fL (7.9-10.8); MONOCYTES # (AUTO) 0.5 10^3/uL (0.0-1.0); MONOCYTES % (AUTO) 1.6 %; NEUTROPHILS # (AUTO) 4.3 10^3/uL (1.5-6.6); NEUTROPHILS % (AUTO) 13.7 %; PLT - PLATELET COUNT 183 10^3/uL (130-450); RED BLOOD COUNT 3.02 10^6/uL (4.20-5.40); RED CELL DISTRIBUTION WIDTH 16.9 % (12.0-15.0); WHITE BLOOD COUNT 31.6 x10^3/uL (4.8-10.8)
[2019-10-02 05:54] LABS: CALCIUM 7.6 mg/dL (8.5-10.3); CREATININE 0.5 mg/dL (0.4-1.0); MAGNESIUM 1.8 mg/dL (1.7-2.8); PHOSPHORUS 3.9 mg/dL (2.5-4.6)
[2019-10-02 06:05] LABS: PLATELET ESTIMATE, MANUAL NORMAL (130-450,000) (NORMAL); PLATELET MORPHOLOGY NORMAL APPEARANCE (NORMAL)
[2019-10-02] MEDS: SUCRALFATE 1 GM/10 ML UDC PO SCH ×4 (07:03→20:50)
[2019-10-02] MEDS: SODIUM CHLORIDE FLUSH 0.9% 10 ML SYRINGE IVP PRN ×2 (09:14→20:49)
[2019-10-02] MEDS ORDERED: SODIUM CHLORIDE 0.9% 500 ML IV ONE (09:15)
[2019-10-02] MEDS: SODIUM CHLORIDE FLUSH 0.9% 10 ML SYRINGE IVP SCH ×2 (09:44→17:26)
[2019-10-02] MEDS: SERTRALINE 50 MG TABLET PO SCH (09:45)
[2019-10-02] MEDS: DOCUSATE SODIUM 100 MG CAPSULE PO SCH (09:45)
[2019-10-02] MEDS: PANTOPRAZOLE 40 MG VIAL IVP SCH ×2 (09:45→20:49)
[2019-10-02] MEDS: polyethylene glycoL 3350 17 GM PACKET PO SCH (09:45)
[2019-10-02] MEDS: METOPROLOL TARTRATE 50 MG TABLET PO SCH ×2 (09:46→20:49)
[2019-10-02] MEDS: MULTIVITAMIN TABLET PO SCH (09:53)
[2019-10-02] MEDS: GI COCKTAIL 120 ML BOTTLE PO SCH ×2 (09:54→20:48)
[2019-10-02] MEDS: POTASSIUM CHLOR 10 MEQ/100 ML 10 MEQ/100 ML BAG IV SCH ×4 (10:15→13:46)
--- NOTE | 2019-10-02 11:16 | XRAY Report ---
PROCEDURE: Chest 1 View X-Ray INDICATIONS: Wheezing TECHNIQUE: One view of the chest was acquired. COMPARISON: 09/28/2019, 09/23/2019, 04/26/2013, and CT chest dated 04/30/2013 FINDINGS: Surgical changes and devices: Thoracolumbar posterior fusion hardware is again noted. Lungs and pleura: Diffuse interstitial prominence. Patchy bibasilar opacities. There are small bilat eral pleural effusions. Lung volumes are decreased bilaterally. No pneumothorax. Mediastinum: Mediastinal contours appear stable. Heart size is normal. Bones and chest wall: No suspicious bony lesions. Overlying soft tissues appear unremarkable. Lowe r mediastinal density compatible with large hiatal hernia seen on comparison CT. IMPRESSION: Diffuse interstitial prominence with patchy bibasilar opacities and small bilateral pleural effusions . Findings may represent early pulmonary edema although infectious/inflammatory process not excluded. Reviewed by: Boris Shell MD on 10/02/2019 11:14 AM PDT Approved by: Boris Shell MD on 10/02/2019 11:14 AM PDT Station ID: [id number]
[2019-10-02] MEDS: FLUCONAZOLE 200 MG/100 ML 100 ML IV SCH (11:34)
[2019-10-02] MEDS ORDERED: FUROSEMIDE 20 MG/2 ML VIAL IVP STA (11:53)
--- NOTE | 2019-10-02 14:45 | PROVIDER PROGRESS NOTE ---
Assessment/Plan - Problem List (1) Heart failure with preserved ejection fraction Qualifiers: Heart failure chronicity: acute on chronic Qualified Code(s): I50.33 - Acute on chronic diastolic (congestive) heart failure Assessment/Plan: She did not appear short of breath, despite the wheezing heard this morning by the RN. She is not hypoxic or tachypneic. Chest x-ray was done that did show mild pulmonary vascular congestion. Echocardiogram showed preserved ejection fraction with evidence of pulmonary hypertension. Given amount of IV fluid she has received in blood products, will give her Lasix IV x1. (2) Esophagitis Assessment/Plan: This was evident on endoscopy done several days ago, and was the source of her acute blood loss anemia. She was started on Diflucan IV empirically for possible Nichelle esophagitis. She is also on iv Protonix and oral Sucralfate. Biopsy results are still pending. She tolerated a clear liquid diet without difficulty. Will advance diet to pureed. Will plan for discharge to a skilled nurse facility tomorrow if she tolerats diet advanced and if Hgb stable. (3) Acute blood loss anemia Assessment/Plan: She did require transfusion during this hospitalization. Hemoglobin has been stable now for several days and there is no evidence of bleeding. Will follow hemoglobin tomorrow and if it is stable, then DCh tomorrow. (4) CLL (chronic lymphocytic leukemia) Assessment/Plan: She is a chronically elevated WBC. Plan f/u with provider after Dch. (5) Hyperlipidemia Assessment/Plan: He continues on her home statin medication for this. (6) Hypertension Assessment/Plan: BP well controlled on her current meds. (7) Atrial fibrillation with RVR Assessment/Plan: Resolved. She is now in a sinus rhythm and is rate controlled on metoprolol. We will continue her current dose metoprolol as she is tolerating it well. No anticoagulation due to GI bleed and prior history of falls. (8) Dementia Assessment/Plan: Stable. Continue her home Seroquel. (9) Fecal impaction Assessment/Plan: Resolved shortly after admission. - Current Meds Current Meds: Current Medications Generic Name Dose Route Start Last Admin Trade Name Freq PRN Reason Stop Dose Admin Acetaminophen 650 mg 09/25/19 07:32 09/26/19 15:46 Tylenol PO 650 mg Q6H PRN Administration PAIN Atorvastatin Calcium 20 mg 09/25/19 21:00 10/01/19 22:24 Lipitor PO 20 mg QPM AMANDO Administration Docusate Sodium 100 mg 09/25/19 09:00 10/02/19 09:45 Colace 100mg Capsule PO 100 mg DAILY AMANDO Administration Fluconazole 100 mls @ 100 mls/hr 09/29/19 09:00 10/02/19 12:35 Diflucan 200 Mg/100 Ml IV Infused DAILY AMANDO Infusion Metoprolol Tartrate 50 mg 09/28/19 21:00 10/02/19 09:46 Lopressor PO 50 mg BID AMANDO Administration Multi-Ingredient Mouthwash/Gargle 30 ml 09/27/19 21:00 10/02/19 09:54 PO Not Given BID [facility] Multivitamins 1 tab 09/26/19 08:00 10/02/19 09:53 Theragran PO 1 tab DAILYWM AMANDO Administration Ondansetron HCl 4 mg 09/23/19 20:12 09/25/19 09:35 Zofran Inj IVP 4 mg Q4HR PRN Administration Nausea / Vomiting Pantoprazole Sodium 40 mg 09/25/19 21:00 10/02/19 09:45 Protonix IVP 40 mg BID AMANDO Administration Polyethylene Glycol 17 gm 09/23/19 22:23 10/02/19 09:45 Miralax PO 17 gm DAILY AMANDO Administration Quetiapine Fumarate 50 mg 09/25/19 21:00 10/01/19 22:24 Seroquel PO 50 mg QPM AMANDO Administration Sertraline HCl 200 mg 09/25/19 09:00 10/02/19 09:45 Zoloft PO 200 mg DAILY AMANDO Administration Sodium Chloride 10 ml 09/23/19 20:12 10/02/19 09:14 Normal Saline Flush 0.9% IVP 10 ml PRN PRN Administration NEEDED PER PROVIDER ORDERS Sodium Chloride 10 ml 09/24/19 01:00 10/02/19 09:44 Normal Saline Flush 0.9% IVP 10 ml 0100,0900,1700 AMANDO Administration Sucralfate 1 gm 09/28/19 16:00 10/02/19 11:34 Carafate PO 1 gm 0700,1100,1600,2200 AMANDO Administration - Lab Result Fish Bone Diagrams: 10/02/19 05:28 10/02/19 05:28 - Additional Planning My Orders: My Active Orders 10/02/19 Lunch Dysphagia Puree Diet [DIET] Subjective - Subjective Patient Reports: No Complaints Nursing Reports: Other (Wheezing audible to RN this morning. Last night, her urine output was oliguric.) Objective Vital Signs: Vital Signs - 24 hr 10/01/19 10/01/19 10/01/19 16:00 20:00 22:25 Temperature 37.0 C 36.7 C Heart Rate [ 63 63 Brachial] Respiratory 18 16 Rate Blood Pressure 146/84 H Blood Pressure [Left Brachial artery] Blood Pressure 126/99 H 117/79 [Right Brachial artery] O2 Saturation 99 96 10/01/19 10/01/19 10/02/19 23:25 23:57 03:56 Temperature 37.0 C 36.7 C Heart Rate [ 61 64 Brachial] Respiratory 16 16 16 Rate Blood Pressure Blood Pressure 108/71 [Left Brachial artery] Blood Pressure 109/46 L [Right Brachial artery] O2 Saturation 92 92 100 10/02/19 10/02/19 10/02/19 08:05 09:46 11:35 Temperature 37.2 C 36.2 C L Heart Rate [ 75 70 Brachial] Respiratory 22 20 Rate Blood Pressure 128/62 Blood Pressure 130/83 H [Left Brachial artery] Blood Pressure 132/73 H [Right Brachial artery] O2 Saturation 96 94 Oxygen O2 Source Nasal cannula I&O (Last 24 Hrs): Intake and Output Totals x24h 09/30/19 10/01/19 10/02/19 23:59 23:59 23:59 Intake Total 2650 2052.5 1960 Output Total 1250 2900 600 Balance 1400 -847.5 1360 General: Alert HEENT: Mucous membr. moist/pink Neck: No JVD Neuro: Alert, Non Focal Cardiovascular: Regular rate Respiratory: No respiratory distress, Breath sounds nml Abdomen: Soft Extremities: No edema - Results Results: Laboratory Results WBC 31.6 x10^3/uL (4.8-10.8) H 10/02/19 05:28 RBC 3.02 10^6/uL (4.20-5.40) L 10/02/19 05:28 Hgb 8.3 g/dL (12.0-16.0) L 10/02/19 05:28 Hct 27.7 % (37.0-47.0) L 10/02/19 05:28 MCV 91.7 fL (81.0-99.0) 10/02/19 05:28 MCH 27.5 pg (27.0-31.0) 10/02/19 05:28 MCHC 30.0 g/dL (32.0-36.0) L 10/02/19 05:28 RDW 16.9 % (12.0-15.0) H 10/02/19 05:28 Plt Count 183 10^3/uL (130-450) 10/02/19 05:28 MPV 10.6 fL (7.9-10.8) 10/02/19 05:28 Neut # (Auto) 4.3 10^3/uL (1.5-6.6) 10/02/19 05:28 Lymph # (Auto) 26.3 10^3/uL (1.5-3.5) H 10/02/19 05:28 [place] # (Auto) 0.5 10^3/uL (0.0-1.0) 10/02/19 05:28 Eos # (Auto) 0.3 10^3/uL (0.0-0.7) 10/02/19 05:28 Baso # (Auto) 0.1 10^3/uL (0.0-0.1) 10/02/19 05:28 Absolute Nucleated RBC 0.00 x10^3/uL 10/02/19 05:28 Total Counted 100 10/01/19 04:40 Band Neuts % (Manual) 0 % (0-10) 10/01/19 04:40 Abnorm Lymph % (Manual) 0 % 10/01/19 04:40 Myelocytes % 1 % (-0) H 09/28/19 04:25 Nucleated RBC % 0.0 /100WBC 10/02/19 05:28 Neutrophils # (Manual) 7.0 10^3/uL (1.5-6.6) H 10/01/19 04:40 Lymphocytes # (Manual) 23.0 10^3/uL (1.5-3.5) H 10/01/19 04:40 Monocytes # (Manual) 0.0 10^3/uL (0.0-1.0) 10/01/19 04:40 Eosinophils # (Manual) 0.3 10^3/uL (0-0.7) 10/01/19 04:40 Basophils # (Manual) 0.3 10^3/uL (0-0.1) H 10/01/19 04:40 Differential Comment MANUAL DIFFERENTIAL 10/01/19 04:40 Manual Slide Review Indicated 10/02/19 05:28 WBC Morphology 1+ SMUDGE CELLS (NORMAL) 10/02/19 05:28 Platelet Estimate NORMAL (130-450,000) (NORMAL) 10/02/19 05:28 Platelet Morphology NORMAL APPEARANCE (NORMAL) 10/02/19 05:28 RBC Morph Micro Appear 1+ OVALOCYTES (NORMAL) 1+ MAURI CELLS (NORMAL) 1+ HYPOCHROMASIA (NORMAL) 1+ POLYCHROMASIA (NORMAL) 10/02/19 05:28 RBC Morph Micro Appear 1+ OVALOCYTES (NORMAL) 1+ MAURI CELLS (NORMAL) 1+ HYPOCHROMASIA (NORMAL) 1+ POLYCHROMASIA (NORMAL) 10/02/19 05:28 RBC Morph Micro Appear 1+ OVALOCYTES (NORMAL) 1+ MAURI CELLS (NORMAL) 1+ HYPOCHROMASIA (NORMAL) 1+ POLYCHROMASIA (NORMAL) 10/02/19 05:28 RBC Morph Micro Appear 1+ OVALOCYTES (NORMAL) 1+ MAURI CELLS (NORMAL) 1+ HYPOCHROMASIA (NORMAL) 1+ POLYCHROMASIA (NORMAL) 10/02/19 05:28 PT 15.0 secs (9.9-12.6) H 09/26/19 08:12 INR 1.3 (0.8-1.2) H 09/26/19 08:12 Sodium 138 mmol/L (135-145) 10/02/19 05:28 Potassium 3.3 mmol/L (3.5-5.0) L 10/02/19 05:28 Chloride 108 mmol/L (101-111) 10/02/19 05:28 Carbon Dioxide 24 mmol/L (21-32) 10/02/19 05:28 Anion Gap 6.0 (6-13) 10/02/19 05:28 BUN 5 mg/dL (6-20) L 10/02/19 05:28 Creatinine 0.5 mg/dL (0.4-1.0) 10/02/19 05:28 Estimated GFR (MDRD) 117 (>89) 10/02/19 05:28 Glucose 89 mg/dL (70-100) 10/02/19 05:28 Lactic Acid 1.5 mmol/L (0.5-2.2) 09/23/19 16:09 Calcium 7.6 mg/dL (8.5-10.3) L 10/02/19 05:28 Phosphorus 3.9 mg/dL (2.5-4.6) 10/02/19 05:28 Magnesium 1.8 mg/dL (1.7-2.8) 10/02/19 05:28 Total Bilirubin 0.6 mg/dL (0.2-1.0) 10/01/19 04:40 AST 16 IU/L (10-42) 10/01/19 04:40 ALT 11 IU/L (10-60) 10/01/19 04:40 Alkaline Phosphatase 61 IU/L (42-121) 10/01/19 04:40 Total Creatine Kinase 29 IU/L (22-269) 09/23/19 16:09 Troponin I High Sens 28.3 ng/L (2.3-14.8) H* 09/25/19 18:20 B-Natriuretic Peptide 431 pg/mL (5-100) H 10/02/19 05:28 Total Protein 4.3 g/dL (6.7-8.2) L 10/01/19 04:40 Albumin 2.2 g/dL (3.2-5.5) L 10/01/19 04:40 Globulin 2.2 g/dL (2.1-4.2) 10/01/19 04:40 Albumin/Globulin Ratio 1.0 (1.0-2.2) 10/01/19 04:40 Prealbumin 8 mg/dL (18-45) L 10/01/19 04:40 Lipase 23 U/L (22-51) 09/23/19 16:09 TSH 2.09 uIU/mL (0.34-5.60) 09/25/19 18:20 Urine Color YELLOW 09/23/19 16:50 Urine Clarity HAZY (CLEAR) 09/23/19 16:50 Urine pH 6.0 PH (5.0-7.5) 09/23/19 16:50 Ur Specific [place] 1.025 (1.002-1.030) 09/23/19 16:50 Urine Protein NEGATIVE mg/dL (NEGATIVE) 09/23/19 16:50 Urine Glucose (UA) NEGATIVE mg/dL (NEGATIVE) 09/23/19 16:50 Urine Ketones 15 mg/dL (NEGATIVE) H 09/23/19 16:50 Urine Occult Blood NEGATIVE (NEGATIVE) 09/23/19 16:50 Urine Nitrite NEGATIVE (NEGATIVE) 09/23/19 16:50 Urine Bilirubin NEGATIVE (NEGATIVE) 09/23/19 16:50 Urine Urobilinogen 1 (NORMAL) E.U./dL (NORMAL) 09/23/19 16:50 Ur Leukocyte Esterase NEGATIVE (NEGATIVE) 09/23/19 16:50 Urine RBC 0-5 /HPF (0-5) 09/23/19 16:50 Urine WBC 6-10 /HPF (0-5) H 09/23/19 16:50 Ur Squamous Epith Cells MANY Squamous (<= Few) H 09/23/19 16:50 Urine Bacteria Many /HPF (None Seen) H 09/23/19 16:50 Ur Microscopic Review INDICATED 09/23/19 16:50 Urine Culture Comments NOT INDICATED 09/23/19 16:50 Stl Occult Blood (IFOB) POSITIVE (NEGATIVE) A 09/25/19 10:00 Coronavirus (PCR) NEGATIVE 09/28/19 12:45 Blood Type A POSITIVE 09/25/19 06:53 Blood Type Recheck A POSITIVE 09/25/19 05:00 Antibody Screen NEGATIVE 09/25/19 06:53 Crossmatch IS Only See Detail 09/25/19 06:53 - Procedures Procedures: Procedures CATARAC PHACOEMULS/ASPIR (12/06/13) INSERT LENS AT CATAR EXT (12/06/13)
[2019-10-02] MEDS: ATORVASTATIN 10 MG TABLET PO SCH (20:48)
[2019-10-02] MEDS: QUEtiapine 25 MG TABLET PO SCH (20:50)
[2019-10-03] MEDS: SODIUM CHLORIDE FLUSH 0.9% 10 ML SYRINGE IVP SCH ×2 (00:47→08:57)
[2019-10-03] MEDS: SUCRALFATE 1 GM/10 ML UDC PO SCH (07:01)
[2019-10-03 08:02] LABS: BASOPHILS # (AUTO) 0.1 10^3/uL (0.0-0.1); BASOPHILS % (AUTO) 0.2 %; EOSINOPHILS # (AUTO) 0.2 10^3/uL (0.0-0.7); EOSINOPHILS % (AUTO) 0.6 %; HGB - HEMOGLOBIN 9.1 g/dL (12.0-16.0); LYMPHOCYTES # (AUTO) 25.3 10^3/uL (1.5-3.5); LYMPHOCYTES % (AUTO) 79.4 %; MEAN CORPUSCULAR HEMOGLOBIN 28.2 pg (27.0-31.0); MEAN PLATELET VOLUME 9.9 fL (7.9-10.8); NEUTROPHILS # (AUTO) 5.2 10^3/uL (1.5-6.6); NEUTROPHILS % (AUTO) 16.4 %; PLT - PLATELET COUNT 175 10^3/uL (130-450); RED BLOOD COUNT 3.23 10^6/uL (4.20-5.40); RED CELL DISTRIBUTION WIDTH 16.3 % (12.0-15.0); WHITE BLOOD COUNT 31.9 x10^3/uL (4.8-10.8)
[2019-10-03 08:13] LABS: CALCIUM 8.3 mg/dL (8.5-10.3); CREATININE 0.6 mg/dL (0.4-1.0); MAGNESIUM 1.6 mg/dL (1.7-2.8); PHOSPHORUS 3.8 mg/dL (2.5-4.6)
[2019-10-03 08:44] LABS: DIFFERENTIAL COMMENT MANUAL=AUTO DIFF; PLATELET ESTIMATE, MANUAL NORMAL (130-450,000) (NORMAL); PLATELET MORPHOLOGY NORMAL APPEARANCE (NORMAL)
--- NOTE | 2019-10-03 08:54 | Discharge Plan ---
"Discharge Plan for SNF / FEMI - Discharge Plan And Transition Orders Problem Reviewed?: Yes Disposition: 03 SNF DC/Xfer Condition: Stable Allergies and Adverse Reactions: Allergies Allergy/AdvReac Type Severity Reaction Status Date / Time No Known Drug Allergies Allergy Verified 09/23/19 15:43 Health Concerns: The patient has CLL, Afib, HTN and dementia. Admitted with A. fib with RVR, fecal impaction, nausea, found to have GI blood loss anemia, and severe esophagitis. Patient is on treatment for the esophagitis using empiric antifungal agents plus Sucralfate and Protonix. She participates and physical therapy, to continue at SNF. Plan of Treatment: As above. Care Goals: Improvement in symptoms and stabilization are the goals. Assessment: Patient appears to be in agreement with the plan. - SNF / SENIOR LIVING Transition Orders Admit to (Facility): [facility] Discharge Diagnosis: (1) Esophagitis Aspirin stopped. Please resume aspirin on 10/23/19. (2) Acute blood loss anemia Stabilized after transfusions, oral Iron started. (3) Heart failure with preserved ejection fraction Lasix iv was needed after transfusions. (4) CLL (chronic lymphocytic leukemia) Stable. (5) Hyperlipidemia Stable. (6) Hypertension Stable. (7) Atrial fibrillation with RVR Paroxysmal. Aspirin was stopped. Please resume aspirin on 10/23/19. (8) Dementia Stable. (9) Fecal impaction Resolved shortly after admission. Medicare Certification Statement: I certify [facility] is medically necessary on a continuing basis for any of the conditions for which she/he is receiving care during hospitalization. Notify PCP of admission and forward orders to primary provider for signature. Weight on admission and: Weekly Call PCP immediately if weight increases by: 5 kg Other Notification Orders: Call PCP immediately if patient develops dyspnea, chest pain/tightness or edema. House Bowel Program: Yes Additional Bowel Program Orders: If no BM after 2 days, nurse may give M.O.M. 30ml PO PRN and/or ducolax Supp 1 OR and/or KWABENA 250mg P.O., and/or senna 1-2 tabs PO. On day 3 nurse may give repeat above order until residents constipation is resolved. Annual Influenza Vaccine (between Oct 22 and May 21): Yes Two-step PPD per [facility] [phone] or approved exception documents: Yes Treatments & Other Orders: Daily PT and OT Oxygen Orders: None Medication Orders: PLEASE REFER TO THE DISCHARGE MEDICATION LIST. Insulin Orders?: No - Medications New Prescriptions: Aspirin [Aspirin EC] 81 mg PO DAILY #30 tablet. Sucralfate [Carafate] 1 gm PO 0700,1100,1600,2200 #120 udc Fluconazole [Diflucan] 100 mg PO DAILY #10 tablet Ferrous Gluconate [Iron] 240 mg PO DAILY #30 tablet Metoprolol Tartrate [Lopressor] 50 mg PO BID #60 tablet polyethylene glycoL 3350 [Miralax] 17 gm PO DAILY #30 packet Pantoprazole [Protonix] 40 mg PO BID #60 tablet - Diet Type: Geriatric Texture: Puree (This can be advanced to soft in 5-7 days) Liquids: Thin May have monthly special meal: Yes - Therapies | Activity Therapy: Evaluation | Treat if indicated: PT, OT Rehabilitation Potential: Maximize functional status Activity: Activity as Tolerated Weight Bearing: Full Weight Assistance Devices: Walker"
[2019-10-03] MEDS: DOCUSATE SODIUM 100 MG CAPSULE PO SCH (08:56)
[2019-10-03] MEDS: polyethylene glycoL 3350 17 GM PACKET PO SCH (08:56)
[2019-10-03] MEDS: SERTRALINE 50 MG TABLET PO SCH (08:57)
[2019-10-03] MEDS: MULTIVITAMIN TABLET PO SCH (08:57)
[2019-10-03] MEDS: PANTOPRAZOLE 40 MG VIAL IVP SCH (08:57)
[2019-10-03] MEDS: METOPROLOL TARTRATE 50 MG TABLET PO SCH (08:58)
[2019-10-03] MEDS: GI COCKTAIL 120 ML BOTTLE PO SCH (09:05)
[2019-10-03] MEDS: FLUCONAZOLE 200 MG/100 ML 100 ML IV SCH (09:13)
--- NOTE | 2019-10-03 10:17 | DISCHARGE SUMMARY ---
"Discharge Summary Admit Date: 09/23/19 Discharge Date: 10/03/19 Discharging Provider: Dr Georgette Jordan Primary Care Provider: KOMAL Ferguson Code Status: Attempt Resuscitation Condition at Discharge: Stable Discharge Disposition: 03 SNF DC/Xfer - HPI History of Present Illness: From the admission H&P of Dr Richi Salazar: Patient is an 84-year-old female with past medical history including atrial fibrillation, CLL and dementia who presented today from [facility]. Her daughter was at bedside and helped with some of the history. The patient was just discharged from [facility] on September 21, 2019 for an episode of atrial fibrillation with RVR and was admitted there to the ICU on a diltiazem drip. The daughter reports that the staff at [facility] reported that the patient suddenly became pale, was coughing and dyspneic. They were concerned that something was wrong with her heart and called EMS to bring her to the ED. In the ED she was found to be in atrial fibrillation with rapid ventricular rhythm and heart rate as high as 125. Work-up included a chest x-ray which was unremarkable except for thoracolumbar fixation hardware. A CT of the abdomen/pelvis was also done which showed a prominent amount of stool within the rectum for which early fecal impaction was suspected. Patient's white blood cell count was also very elevated at 40. She was given 10 mg of diltiazem IV twice which initially improved her heart rate to the 80s. However as time went by her heart rate steadily increased to the 110's. It mainly fluctuated between 100 and 130s. She also had several attempts at disimpaction in the ER and was finally administered an enema. Upon arrival to bedside the patient was resting comfortably. She is hard of hearing but denied any abdominal pain, dyspnea, chest pain. She was slightly nauseous. She has not eaten in days as a result of the nausea. As a result of the laboratory findings and her clinical presentation she was presented for admission to the Hospitalist for further treatment. - CONSULTS | PROCEDURES Consultations: Dr Lefty Monreal Procedures: Upper endoscopy on 09/27/19 Colonoscopy on 09/28/19 - HOSPITAL COURSE Hospital Course: 1) Esophagitis She was seen in consult by General Surgery, and severe esophagitis with fiability was seen on endoscopy and was felt to be the source of her acute blood loss anemia. She was started on Diflucan IV empirically for possible Nichelle e sophagitis. She was also on iv Protonix and oral Sucralfate. Biopsy was done during endoscopy and results are still pending. She was monitored for many days, to ensure that bleeding did not return, since she had black tarry stools. She was discharged on new Sucralfate, Diflucan and Protonix. (2) Acute blood loss anemia The Hgb was 7.9 at admission, dropped to 6.5 and she got a transfusion. Hgb improved to 8.5 but dropped again to 7.3, and a second unit of blood was given. The Hg stabilized at 8.3-9.1. She was discharged on new prescription for oral Iron. (3) Acute on chronic diastolic congestive heart failure Echocardiogram was done due to Afib and showed preserved ejection fraction of 50-55% with evidence of pulmonary hypertension (PA pressure 83 mmHg). Wheezing was heard once, but she was not hypoxic or tachypneic. A CXR was done that morning that did show mild pulmonary vascular congestion, likely from the amount of IV fluid she has received plus blood products, and she received Lasix IV x1. (4) CLL (chronic lymphocytic leukemia) This was diagnosed 11 years ago. Her WBC is chronically elevated, here it was 29K- 40K. Patient had been seeing Dr. Medellin for oncology. No treatment had been done because the patient was stable. As a result of her stability she was actually discharged by Dr. Medellin from oncologic care. (5) Hyperlipidemia Chronic dx. (6) Hypertension Stable on her meds, while hospitalized. (7) Atrial fibrillation with RVR She presented in Afib with RVR, felt to be secondary to volume depletion (anemi a). Later, her rate was controlled on metoprolol and volume replacement. Her Afib was paroxysmal; she was discharged in a sinus rhythm. Aspirin was stopped due to GI blood loss and she is on no anticoagulation due to GI bleed, dementia and prior history of falls. The plan was to resume aspirin on 10/23/19. (8) Dementia Stable. We continued her home Seroquel. She was cooperative and pleasant and participated with PT. She was discharged for physical therapy rehab to [facility] in stable condition. (9) Fecal impaction Disimpaction and enema were done. The impaction resolved shortly after admission. - ALLERGIES Allergies/Adverse Reactions: Allergies Allergy/AdvReac Type Severity Reaction Status Date / Time No Known Drug Allergies Allergy Verified 09/23/19 15:43 - MEDICATIONS Home Medications: Ambulatory Orders Medication Instructions Recorded Confirmed Alendronate Sodium 70 mg PO Q7D 06/05/19 09/24/19 Docusate Sodium 100 mg PO DAILY 06/05/19 09/24/19 Furosemide [Lasix] 20 mg PO DAILY PRN 06/05/19 09/24/19 Multivitamin [Multivitamins] 1 cap PO DAILY 06/05/19 09/24/19 Quetiapine Fumarate 50 mg PO QPM 06/05/19 09/24/19 Sertraline HCl 200 mg PO DAILY 06/05/19 09/24/19 Acetaminophen [Tylenol] 650 mg PO Q6H PRN 09/23/19 09/24/19 Ondansetron HCl [Zofran] 4 mg PO Q6HR PRN 09/23/19 09/24/19 Lovastatin 40 mg PO QPM 09/24/19 09/24/19 Aspirin [Aspirin EC] 81 mg PO DAILY #30 tablet. 10/03/19 Ferrous Gluconate [Iron] 240 mg PO DAILY #30 tablet 10/03/19 Fluconazole [Diflucan] 100 mg PO DAILY #10 tablet 10/03/19 Metoprolol Tartrate [Lopressor] 50 mg PO BID #60 tablet 10/03/19 Pantoprazole [Protonix] 40 mg PO BID #60 tablet 10/03/19 Sucralfate [Carafate] 1 gm PO 0700,1100,1600,2200 #120 10/03/19 udc polyethylene glycoL 3350 [Miralax] 17 gm PO DAILY #30 packet 10/03/19 - PHYSICAL EXAM AT DISCHARGE General Appearance: positive: No acute distress, Alert Eyes Bilateral: positive: Normal inspection, EOMI ENT: positive: ENT inspection nml, No signs of dehydration Neck: positive: Nml inspection Respiratory: positive: No respiratory distress Cardiovascular: positive: Regular rate & rhythm, No murmur Abdomen: positive: Non-tender, Nml bowel sounds, No distention Skin: positive: Pallor Extremities: positive: Non-tender, No pedal edema Neurologic/Psychiatric: positive: Oriented x3 (Non-focal) - LABS Result Diagrams: 10/03/19 07:55 10/03/19 07:55 - DIAGNOSTIC IMAGING Diagnostic Imaging Results: Final report reviewed - FOLLOW UP Follow Up: See PCP in the next 1-2 weeks. - TIME SPENT Time Spent in Discharge (Minutes): 60"
[2019-10-03] MEDS ORDERED: PROPOFOL 200 MG/20 ML VIAL IVP ONE (12:19)
[2019-10-03 12:23] VITALS: BP 146/71
== END 2019-10-03 12:20 | DRG 368 ==
LOC: EDUNIT# → ED 15:37 → MS2 20:12 → OBSVTOIN 09-24 14:31
PROVIDERS: ADMIT Internal Medicine; ATTEND Internal Medicine
PROC: 30233N1 Transfusion of Nonautologous Red Blood Cells into Peripheral Vein, Percutaneous Approach (ICD-10-PCS; 2019-09-25)
PROC: 0DB28ZX Excision of Middle Esophagus, Via Natural or Artificial Opening Endoscopic, Diagnostic (ICD-10-PCS; 2019-09-27)
PROC: 0DB48ZX Excision of Esophagogastric Junction, Via Natural or Artificial Opening Endoscopic, Diagnostic (ICD-10-PCS; principal; 2019-09-27 15:15)
PROC: 0DBK8ZZ Excision of Ascending Colon, Via Natural or Artificial Opening Endoscopic (ICD-10-PCS; 2019-09-29)
PROC: 0DBH8ZZ Excision of Cecum, Via Natural or Artificial Opening Endoscopic (ICD-10-PCS; 2019-09-29)
DX: B37.81 Candidal esophagitis (principal); I50.33 Acute on chronic diastolic (congestive) heart failure; C91.10 Chronic lymphocytic leukemia of B-cell type not having achieved remission; D62 Acute posthemorrhagic anemia; E46 Unspecified protein-calorie malnutrition; K22.70 Barrett's esophagus without dysplasia; I11.0 Hypertensive heart disease with heart failure; D12.2 Benign neoplasm of ascending colon; D12.0 Benign neoplasm of cecum; R26.9 Unspecified abnormalities of gait and mobility; K21.0 Gastro-esophageal reflux disease with esophagitis; I48.0 Paroxysmal atrial fibrillation; K44.9 Diaphragmatic hernia without obstruction or gangrene; E78.5 Hyperlipidemia, unspecified; F03.90 Unspecified dementia, unspecified severity, without behavioral disturbance, psychotic disturbance, mood disturbance, and anxiety; R62.7 Adult failure to thrive; Z68.23 Body mass index [BMI] 23.0-23.9, adult; K56.41 Fecal impaction; K64.8 Other hemorrhoids; K63.89 Other specified diseases of intestine; M81.0 Age-related osteoporosis without current pathological fracture; R32 Unspecified urinary incontinence; R35.0 Frequency of micturition; H91.90 Unspecified hearing loss, unspecified ear; Z20.828 Contact with and (suspected) exposure to other viral communicable diseases; Z98.1 Arthrodesis status; Z87.891 Personal history of nicotine dependence; Z79.82 Long term (current) use of aspirin; Z79.899 Other long term (current) drug therapy
CPT/HCPCS: 36415; 71045; 74018; 74177; 80048; 80053; 81001; 82040; 82274; 82550; 83605; 83690; 83735; 83880; 84075; 84100; 84134; 84443; 84450; 84460; 84484; 85014; 85018; 85025; 85610; 86850; 86900; 86901; 86920; 87040; 93005; 93306; 96361; 96374; 96376; 97161; 97166; 97530; 99285; A6250; A9270; G0378; J7120; P9016; Q9967; U0004; 81003; 82272; 87086

== ENCOUNTER 2019-10-03 12:21 | Outpatient (CLI) | payer MEDICARE, MEDICAID | END 2019-10-03 12:22 | LOC: EMS 12:21 | PROVIDERS: ATTEND Surgery | DX: R53.1 Weakness (principal); F03.90 Unspecified dementia, unspecified severity, without behavioral disturbance, psychotic disturbance, mood disturbance, and anxiety; Z74.01 Bed confinement status; Z99.81 Dependence on supplemental oxygen | CPT/HCPCS: A0425; A0428 ==